=== PATIENT | female | born 1985 | race Caucasian/White ===

== ENCOUNTER → 2018-01-02 22:09 | Outpatient (CLI) | payer MEDICAID, SELFPAY ==
[2018-01-08 11:27] LABS: HPV APTIMA, High Risk Negative (Negative)
== END ==
PROVIDERS: Visit Provider Nurse Practitioner Women's Health
DX: Z12.4 Encounter for screening for malignant neoplasm of cervix (principal)
CPT/HCPCS: 88175; G0145

== ENCOUNTER → 2019-02-27 | Outpatient (CLI) | payer MEDICAID, SELFPAY ==
[2019-02-26 14:28] VITALS: BMI 30.1
[2019-02-27 13:20] LABS: Absolute Lymphocyte Count 1.81 X10^3/uL (0.83-4.51); Absolute Neutrophil Count 6.1 X10^3/uL (2.0-7.7); Basophil# 0.02 X10^3/uL; Basophil% 0.2 % (0-1); Eosinophil# 0.19 X10^3/uL; Eosinophils% 2.2 % (0-5); Hematocrit 46.9 % (37-47); Hemoglobin 15.6 g/dL (12.0-15.0); Lymphocyte # 1.81 X10^3/ul (4.0); Lymphocyte % 20.6 % (19-41); Mean Corp Hgb Conc 33.3 g/dL (32-36); Mean Corpuscular Hgb 32.4 pg (27.0-32.0); Mean Corpuscular Volume 97.3 fL (81-99); Mean Platelet Vol. 10.9 fl (6.2-12.0); Monocyte# 0.61 X10^3/uL; Monocyte% 6.9 % (0-10); NRBC Flagged by Analyzer 0 % (0-5); Neutrophil # 6.12 X10^3/uL (2.7-7.7); Neutrophil % 69.8 % (47-70); Platelet Count 299 K/mm3 (150-450); RBC Distribution Width CV 11.1 % (11.6-14.6); Red Blood Count 4.82 M/mm3 (4.2-5.4); White Blood Count 8.8 K/mm3 (4.4-11.0)
[2019-02-27 14:09] LABS: AST(SGOT) 15 U/L (15-37); Alanine Aminotransfer ALT/SGPT 24 U/L (13-56); Albumin, Serum 3.7 g/dL (3.2-5.0); Alkaline Phosphatase 63 U/L (45-117); Anion Gap 9 (5-15); BUN 8 mg/dL (7-18); BUN/Creat Ratio 13.3 RATIO (10-20); Calcium,Total 8.9 mg/dL (8.5-10.1); Chloride 105 mmol/L (98-107); Cholesterol 215 mg/dL (200); EST Glomerular Filtration Rate 121 mL/min (>60); Est Glom Filt Rate - Afr Amer 146 mL/min (>60); Globulin 3.8 g/dL (2.2-4.2); Glucose 88 mg/dL (74-106); High Density Lipoprotein 35 mg/dL; Potassium 4.2 mmol/L (3.5-5.1); Protein, Total 7.5 g/dL (6.4-8.2); Sodium Level 140 mmol/L (136-145); Triglycerides 421 mg/dL
== END | disposition home or self-care (01) ==
LOC: BIMLAB 08:05
PROVIDERS: Family Provider Internal Medicine; PCP Internal Medicine; Visit Provider Internal Medicine
DX: I10 Essential (primary) hypertension (principal); G43.909 Migraine, unspecified, not intractable, without status migrainosus
CPT/HCPCS: 36415; 80053; 80061; 85025

== ENCOUNTER → 2019-03-20 | Outpatient (CLI) | payer MEDICAID, SELFPAY ==
[2019-02-26 14:28] VITALS: BMI 30.1
--- NOTE | 2019-03-20 13:12 | CT_ITS ---
STUDY: CT BRAIN WITH AND WITHOUT CONTRAST REASON FOR EXAM: Female, 33 years old. Temporal headaches. Hypertension. RADIATION DOSAGE (If Supplied By Facility): CTDIvol = ( 44.99 ) mGy, DLP = ( 1479.73 ) mGycm TECHNIQUE: Transaxial CT imaging of the brain was performed pre and post contrast administration. The examination was performed with intravenous administration of IV Isovue 300 50mL. Individualized dose optimization techniques were used for this CT. COMPARISON: None. FINDINGS: Normal soft tissue structures. Normal calvarium. Normal size ventricles and extra-axial spaces for the patient's age. Normal white matter tracts of the cerebral hemispheres. Normal basal ganglia and thalami. Normal brainstem. Normal cerebellum. There is no intracranial hemorrhage. There are no findings of an acute ischemic infarction. Mild degree of bilateral ethmoid sinusitis. CT/Brain/Head W/WO Contrast IMPRESSION: Mild degree of bilateral ethmoid sinusitis. Electronically Signed: Deric Fleming, at 15:44 EDT , Service support ,
== END | disposition home or self-care (01) ==
LOC: CT 13:10
PROVIDERS: Family Provider Internal Medicine; PCP Internal Medicine; Referring Provider Internal Medicine; Visit Provider Internal Medicine
DX: G43.909 Migraine, unspecified, not intractable, without status migrainosus (principal); J32.9 Chronic sinusitis, unspecified
CPT/HCPCS: 70470; Q9967

== ENCOUNTER → 2019-03-28 | Outpatient (CLI) | payer MEDICAID, SELFPAY ==
[2019-03-27 17:06] VITALS: BMI 27.8
[2019-03-28 12:30] LABS: Anion Gap 6 (5-15); BUN 9 mg/dL (7-18); Calcium,Total 9.3 mg/dL (8.5-10.1); Chloride 104 mmol/L (98-107); EST Glomerular Filtration Rate 121 mL/min (>60); Est Glom Filt Rate - Afr Amer 147 mL/min (>60); Glucose 95 mg/dL (74-106); Potassium 3.6 mmol/L (3.5-5.1); Sodium Level 137 mmol/L (136-145)
== END | disposition home or self-care (01) ==
LOC: BIMLAB 10:59
PROVIDERS: Family Provider Internal Medicine; PCP Internal Medicine; Visit Provider Internal Medicine
DX: I10 Essential (primary) hypertension (principal)
CPT/HCPCS: 36415; 80048

== ENCOUNTER 2019-06-19 03:48 | Emergency (ER) | payer MEDICAID, SELFPAY ==
[2019-03-27 17:06] VITALS: BMI 27.8
[2019-06-19 03:49] VITALS: BP 144/106; PULSE 91; RESP 20; TEMP 36.9; O2SAT 97; BMI 27.3
[2019-06-19] MEDS: Acetaminophen 325 MG Tablet 650 MG PO (04:14)
[2019-06-19] MEDS: Ibuprofen 600 MG Tablet PO (04:15)
[2019-06-19] MEDS: cycloBENZAPRine HCl 10 MG Tablet PO (04:15)
[2019-06-19] MEDS: morphine 8 MG/ML Syringe 6 MG IM (04:15)
[2019-06-19 05:03] LABS: Mucous, Urine 0 SEEN /hpf (<or=2+); Red Blood Cells-Urine 0 SEEN /hpf (0-5)
[2019-06-19 05:11] LABS: Internal QC Validated? YES +Cl - CLEAR BKGD; Pregnancy, Urine Negative Negative
[2019-06-19 05:13] LABS: Color, Urine Yellow (Yellow); Glucose, Dipstick Normal (Normal); Ketone-Dipstick Negative (Negative); Leukocyte Esterase-Dipstick 100 /ul (Negative); Nitrite-Dipstick Negative (Negative); Occult Blood-Urine Negative /ul (Negative); Protein-Dipstick Negative (Negative); Specific Gravity, Urine 1.025 (1.002-1.030); Urine Bilirubin Dipstick Negative (Negative); Urine Clarity Sl. Cloudy (Clear); Urine Urobilinogen Normal (Normal)
[2019-06-19 05:29] LABS: Bacteria 1+ /hpf (None Seen); Squamous Epithelial Cells - UA 0-5 SEEN /hpf (5-10); White Blood Cells 5-10 SEEN /hpf (0-5)
--- NOTE | 2019-06-19 05:41 | ED.VIS.BACK ---
History of Present Illness Chief Complaint: Back Informant: Patient Onset: Days - 7 Context: Gradual Onset Injury: Lifting, Twisting Quality: Sharp Location: Lumbar Worsened by: improves with: Movement Relieved by: Remaining Still Associated Symptoms: Radiation to Right Leg Narrative: Patient is a 33-year-old female with history of hypertension presenting with lower back pain. Patient states she was lifting a case of water bottles a week ago when she felt a tingle in her low back. Since then she is had worsening low back pain. She seen her chiropractor 3 times with no relief. She is all been alternating ibuprofen and Tylenol for her pain as well as using Biofreeze and ice. Patient states the pain is now worse in her right lower back and radiates to her groin, hip and down her leg. She has some associated nausea secondary to the pain but no vomiting and normal bowel movements. She denies any abdominal pain. She denies any falls or injury. She notes she had a similar episode a couple months ago but it resolved after couple days. 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 She tried to work yesterday but was only able to work for 4 hours before the pain became too bad. She denies any other complaint such as fever, incontinence or numbness. Past Medical History - Allergies and Home Meds Allergies/Adverse Reactions: Allergies amoxicillin [From Augmentin] Allergy (Unknown, Verified 06/19/19 03:51) Vaginal Itching clavulanic acid [From Augmentin] Allergy (Unknown, Verified 06/19/19 03:51) Vaginal Itching Primary Care Physician: Joseph Bustamante MD [Primary Care Provider] - Past Medical History: - - Hypertension Surgical History: noncontributory Smoking Status: Former smoker Review of Systems General: Denies: Chills, Fever, Sweats Eyes: Denies: Visual changes - bilaterally, Diplopia ENT: Denies: Rhinorrhea, Sore throat Cardiovascular: Denies: Chest pain, Palpitations Respiratory: Denies: Dyspnea, Cough, Dyspnea on exertion Gastrointestinal: Denies: Abdominal pain, Nausea, Vomiting, Diarrhea, Melena, Hematochezia Genitourinary: Denies: Dysuria, Hematuria, Frequency Musculoskeletal: Reports: Back pain - Right lower. Denies: Extremity Pain Skin: Denies: Rash, Wounds Neurological: Denies: Headache, Weakness, Numbness Physical Exam Vital Signs/Narrative: Vital Signs Temp Pulse Resp BP Pulse Ox 06/19/19 03:49 98.4 F 91 20 H 144/106 H 97 Inital Vital Signs reviewed: Yes General: Well nourished, Well developed Head: Normocephalic, Atraumatic Eyes: Perrl, EOMI ENT: Moist mucous membranes, No rhinorrhea Neck: Supple, Nontender Cardiovascular: Regular rate, Regular rhythm, No murmurs Respiratory: No distress, CTA bilaterally, Chest nontender Abdomen: Soft, Nontender, Nondistended, Normal bowel sounds, - - No pain at McBurney's point. Negative for: No masses, Guarding, Rebound tenderness Back: Normal Inspection, Paraspinal Tenderness - Right paraspinal, Positive SLR - Right, Positive SLR - Left. Negative for: Spinal tenderness, CVA tenderness Extremeties: Nontender, No edema Skin: Normal color, No rash Neuro: Alert, Oriented, Normal Strength, Normal Sensation, Normal DTR, Normal Gait. Negative for: Weakness, Parasthesia Psychological: Normal affect Diagnostic/Tx/Re-eval - Medical Decision Making Patient is evaluated for back pain. Is been present for the past week. It started after she lifted a case of water. Patient does not have midline tenderness. I am not concerned for cauda equina syndrome. She is a normal neurologic exam. She is treated with IM morphine for pain control as well as oral Motrin, Tylenol and Flexeril. Patient does have improvement of her symptoms. Urinalysis is checked because it is at her right flank to rule out pyelonephritis or kidney stone. Urinalysis is likely contaminated but does have some white blood cells 1+ bacteria. Urine culture is sent. She is not started on antibiotics. Patient will follow-up with her primary care doctor. She is counseled on symptomatic treatment and the typical course of back pain with sciatica. Patient is counseled on signs and symptoms requiring return to the emergency room. Patient verbalizes agreement and understand this plan. Patient discharged home in stable and improved condition. ED Disposition - Plan for ED Patient: Disposition: Home or Assisted Living Diagnosis: Low back pain with sciatica Instructions: BACK PAIN w/ SCIATICA Prescriptions: cycloBENZAPRine HCl [Flexeril] 10 mg PO TID PRN PRN #20 tab PRN Reason: Muscle Spasm Prescription Printed Ibuprofen [Motrin] 600 mg PO Q6H PRN PRN #20 tab PRN Reason: Pain/Inflammation Prescription Printed Referrals: Joseph Bustamante MD [Primary Care Provider] - Additional Instructions: Please make sure you follow-up with your primary doctor later today as already scheduled. Likely this is sciatica causing your pain. This can be caused by bulging disc in your back or muscle spasms. Will be started on a muscle relaxer to help with the pain as well as anti-inflammatories. Return emergency room with any worsening symptoms such as worsening pain, fever or incontinence.
[2019-06-19 05:51] VITALS: BP 135/99; PULSE 89; RESP 18; O2SAT 96
== END 2019-06-19 05:52 | disposition home or self-care (01) ==
PROVIDERS: Emergency Provider Emergency Medicine; PCP Internal Medicine
DX: M54.41 Lumbago with sciatica, right side (principal); I10 Essential (primary) hypertension; Z87.891 Personal history of nicotine dependence; Z79.899 Other long term (current) drug therapy
CPT/HCPCS: 81001; 81025; 87086; 87088; 96372; 99283

== ENCOUNTER 2019-11-13 10:00 | Outpatient (RCR) | payer MEDICAID, SELFPAY ==
[2019-07-10 15:18] VITALS: BMI 27.3
--- NOTE | 2019-07-17 11:41 | HP.PTEVAL ---
Patient's Visit Information ANA LILIA DELONG is a 33 year old F referred to Physical Therapy by BETTIE Rouse with a diagnosis of LBP. Date of Evaluation: 07/17/19 Physical Therapist: Yuri Plata, DPT, OCS, CSCS - Visit Plan Frequency: 2x /Week Duration: 4-6 Weeks Plan: 2x/week for 4 weeks for... 1. Randal ext progression of forces. 2. remodelling LB stretches wehn appropr. 3. DLS adn core strength/body mechanics. 4. ES and MH as needed. - Subjective Findings: Has LBP and sciatica R LE. had it for a month after lifting 40 pack of water. [place] it in R LB and now goes down back of r LE. Been doing ice adn some stretches and pain patches for the last month with meds. It helps and the edge is now off. Doing home knee to chest stretches and DKC and they stretch but not great. Morning is the worst time.Hard to move in morning due to stiffness. 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 Was off 3 weeks and just returned adn it is rough. Basic ADLS are getting done. Hobbies : 3 kids 15,12,5. Lying on couch with legs elevated is painfree position. - Pain R B Pain Intensity (Out of 10): 3 Pain Intensity Range: 0, 6 Comment: afterr work is worse. - Objective Walks normal and I, trasnfers hesitant but I chair and table. Posture is flat back, Fowrard head posture adn kyphosis posturally in T/S. No tenderness in low back or posterior musculature. Reflexes 2/3 patella and achilles B. Sensation wNL in LE to gross light touch. Strength LE 4+/5 without myotomal abnormalities. Felxibility is fair. AROM L/S is max limtied in LS with R pinch, min limited R SB with pinch, L SB is good painfree. Flexion is hesitant but not painful. - slump, + R SLR. Repeated PPU seems to centralize pain and increase ext ROM. - Goals Goal 1:: Full L/S AROM without pain. Goal Time Frame: 4-6 Weeks Goal 2:: Pt feel pain 90% better at 1/10 at worst adn manageable Goal Time Frame: 4-6 Weeks Goal 3:: <10% disability on oswestry Goal Time Frame: 4-6 Weeks Goal 4:: I approp HEP and body mechanics to minimize future problems. Goal Time Frame: 4-6 Weeks - Rehabilitation Potential Physical Therapy Diagnosis: LBP likely discal in nature. Rehabilitation Potential: Fair - Anticipated Interventions Patient/Client Instruction: Educate patient on: Condition, Plan of Care For the Purpose of:: To decrease pain, To increase ROM, To improve muscle performance and motor function, To increase tolerance to activity/condition/position, To improve ability of physical actions for home/community/work/leisure Therapeutic Exercise to Include: Strength training, Postural training, Neuromotor development, Passive ROM, Active ROM, Dynamic Lumbar Stabilization, Randal Exercises For the Purpose of:: To decrease pain, To improve muscle performance and motor function, To increase tolerance to activity/condition/position, To improve ability of physical actions for home/community/work/leisure, To improve gait and locomotor functions Manual Therapy Techniques to Include: Mobilization For the Purpose of:: To increase ROM TENS: Yes Thermo therapy (hot pack): Yes For the Purpose of:: To decrease pain Thank you for the opportunity to evaluate your patient. For Medicare and Medicare HMO plans, please review the plan of care and approve it. It will need to be FAXED BACK to us at [phone] for Medicare purposes. For Medicare only, by signing this I certify the plan of care. Please let me know if there are questions or concerns regarding this plan of care. Physician Signature: Date:
--- NOTE | 2019-11-13 10:18 | HP.PTDCSUM ---
It has been my pleasure to treat ANA LILIA DELONG referred by Austin Sr NP-C, with the diagnosis of LBP for a total of 11 visit(s). Discharge Date: 11/13/19 Please see the following information for a summary of their discharge status. Subjective: Been exercising for past two weeks. Pinch is not nearly as bad. It happens with working 11 hour days and lifting. Feels like they are working. To doctor in two weeks. R B Pain Intensity (Out of 10): 0 % Improvement: 95 Objective/Function: Full aROM without pain today, no pain in 4 days. Ready to be done and on her own. Goal 1:: Full L/S AROM without pain. Goal Progress: Goal Met Goal 2:: Pt feel pain 90% better at 1/10 at worst adn manageable Goal Progress: Goal Met Goal 3:: <10% disability on oswestry Goal Progress: 10% Goal 4:: I approp HEP and body mechanics to minimize future problems. Goal Progress: Goal Met Plan: d/c If there are questions or concerns regarding this patient's physical therapy, please feel free to call me at [phone]. Thank you for the referral of this patient. Sincerely, Yuri Plata, DPT, OCS, CSCS
== END 2019-11-13 13:07 | disposition home or self-care (01) ==
LOC: PT 10:00
PROVIDERS: PCP Internal Medicine; Referring Provider Nurse Practitioner Family; Visit Provider Nurse Practitioner Family
DX: M54.41 Lumbago with sciatica, right side (principal)
CPT/HCPCS: 97014; 97110; 97161; 97164; G0283

== ENCOUNTER → 2020-05-20 08:38 | Outpatient (CLI) | payer MEDICAID, SELFPAY ==
[2020-05-20 08:10] VITALS: BMI 30.2
[2020-05-20 12:51] LABS: Absolute Lymphocyte Count 1.69 X10^3/uL (0.83-4.51); Absolute Neutrophil Count 4.3 X10^3/uL (2.0-7.7); Basophil# 0.04 X10^3/uL; Basophil% 0.6 % (0-1); Eosinophil# 0.19 X10^3/uL; Eosinophils% 2.8 % (0-5); Hematocrit 44.6 % (37-47); Hemoglobin 14.6 g/dL (12.0-15.0); Lymphocyte # 1.69 X10^3/ul (4.0); Lymphocyte % 24.8 % (19-41); Mean Corp Hgb Conc 32.7 g/dL (32-36); Mean Corpuscular Hgb 30.5 pg (27.0-32.0); Mean Corpuscular Volume 93.1 fL (81-99); Monocyte# 0.58 X10^3/uL; Monocyte% 8.5 % (0-10); NRBC Flagged by Analyzer 0 % (0-5); Neutrophil % 63.2 % (47-70); Platelet Count 348 K/mm3 (150-450); RBC Distribution Width CV 11.3 % (11.6-14.6); RBC Distribution Width SD 38.4 fl (35.1-43.9); Red Blood Count 4.79 M/mm3 (4.2-5.4); White Blood Count 6.8 K/mm3 (4.4-11.0)
[2020-05-20 13:12] LABS: Vitamin D,25 Hydroxy 28.4 ng/mL
[2020-05-20 13:34] LABS: ALB/GLOB Ratio 0.9 RATIO (0.9-2.4); AST(SGOT) 14 U/L (15-37); Alanine Aminotransfer ALT/SGPT 23 U/L (13-56); Albumin, Serum 3.6 g/dL (3.2-5.0); Alkaline Phosphatase 51 U/L (45-117); Anion Gap 6 (5-15); BUN 11 mg/dL (7-18); BUN/Creat Ratio 18.9 RATIO (10-20); Calcium,Total 8.9 mg/dL (8.5-10.1); Chloride 106 mmol/L (98-107); Cholesterol 218 mg/dL (200); Creatinine, Serum 0.58 mg/dL (0.55-1.02); EST Glomerular Filtration Rate 125 mL/min (>60); Est Glom Filt Rate - Afr Amer 151 mL/min (>60); Globulin 3.8 g/dL (2.2-4.2); Glucose 92 mg/dL (74-106); High Density Lipoprotein 39 mg/dL; Potassium 3.9 mmol/L (3.5-5.1); Protein, Total 7.4 g/dL (6.4-8.2); Sodium Level 140 mmol/L (136-145); Thyroid Stim Hormone (TSH) 0.74 uIU/mL (0.358-3.74); Triglycerides 299 mg/dL; Very Low Density Lipoprotein 60 mg/dL (5-40)
== END ==
PROVIDERS: PCP Internal Medicine; Referring Provider Nurse Practitioner Family; Visit Provider Nurse Practitioner Family
DX: E55.9 Vitamin D deficiency, unspecified (principal); G43.909 Migraine, unspecified, not intractable, without status migrainosus; G89.29 Other chronic pain; I10 Essential (primary) hypertension; M54.5 Low back pain
CPT/HCPCS: 36415; 80053; 80061; 82306; 84443; 85025

== ENCOUNTER → 2020-05-21 11:59 | Outpatient (CLI) | payer MEDICAID, SELFPAY ==
[2020-05-20 08:10] VITALS: BMI 30.2
--- NOTE | 2020-05-21 12:05 | RAD_ITS ---
STUDY: X-RAY - LUMBAR SPINE REASON FOR EXAM: Female, 34 years old. LOW BACK PAIN X1 YEAR WITH RADICULOPATHY. S/P CARRYING A CASE OF WATER. TECHNIQUE: 3 view(s) of the lumbar spine were obtained. COMPARISON: None FINDINGS: Normal lumbar lordosis. There is no substantial scoliosis. There is a normal alignment of the vertebrae. Moderate degree of disc space narrowing and spondylosis at the L5-S1 level. Limbus vertebrae of the superior anterior endplate of the L5 vertebrae. The soft tissue structures are unremarkable. RAD/Lumbar Spine 2 or 3 Views IMPRESSION: Degenerative changes of the spine, as detailed above. Electronically Signed: Deric Fleming, at 12:40 EST , Service support ,
== END ==
PROVIDERS: PCP Internal Medicine; Visit Provider Nurse Practitioner Family
DX: M54.41 Lumbago with sciatica, right side (principal); G89.29 Other chronic pain
CPT/HCPCS: 72100

== ENCOUNTER → 2020-06-08 07:12 | Outpatient (CLI) | payer MEDICAID, SELFPAY ==
[2020-05-20 08:10] VITALS: BMI 30.2
--- NOTE | 2020-06-08 07:12 | MRI_ITS ---
STUDY: MRI LUMBAR SPINE WITHOUT CONTRAST REASON FOR EXAM: Female, 34 years old. low back pain after lifting heavy object radiates into legs bilaterally and R toes. TECHNIQUE: Standardized fat and water weighted pulse sequences were obtained in the sagittal and axial planes. COMPARISON: None FINDINGS: T12-L1: Normal endplates. Normal disc height, hydration and morphology. Normal bilateral facet joints. Normal central canal and bilateral lateral recesses. Normal bilateral intervertebral neural foramina. Normal lumbar lordosis. There is no substantial scoliosis. Normal conus medullaris that terminates at the L1 L1-2: Normal endplates. Normal disc height, hydration and morphology. Normal bilateral facet joints. Normal central canal and bilateral lateral recesses. Normal bilateral intervertebral neural foramina. L2-3: Normal endplates. Normal disc height, hydration and morphology. Normal bilateral facet joints. Normal central canal and bilateral lateral recesses. Normal bilateral intervertebral neural foramina. L3-4: Normal endplates. Normal disc height, hydration and morphology. Normal bilateral facet joints. Normal central canal and bilateral lateral recesses. Normal bilateral intervertebral neural foramina. L4-5: Normal endplates. Normal disc height, hydration and morphology. Normal bilateral facet joints. Normal central canal and bilateral lateral recesses. Normal bilateral intervertebral neural foramina. L5-S1: Moderate sized left paracentral, preforaminal, and foraminal disc protrusion produces mild spinal stenosis, mild right lateral recess stenosis, severe left lateral recess stenosis with effacement of the left S1 nerve root, mild right neural foraminal stenosis and moderate left neural foraminal stenosis with abutment of the left L5 nerve root laterally. Normal visualized sacral ala. Normal visualized paraspinous soft tissue structures. MRI/Spine Lumbar (Routine) IMPRESSION: Focal degenerative disc disease asymmetric to the left at L5/S1 as described above. Electronically Signed: Justin Eldridge MD at 8:30 EST Tel , Service support ,
== END ==
PROVIDERS: PCP Internal Medicine; Referring Provider Nurse Practitioner Family; Visit Provider Nurse Practitioner Family
DX: M54.16 Radiculopathy, lumbar region (principal); M54.41 Lumbago with sciatica, right side
CPT/HCPCS: 72148

== ENCOUNTER → 2020-06-29 11:31 | Outpatient (CLI) | payer MEDICAID, SELFPAY ==
[2020-06-17 14:24] VITALS: BMI 30.2
--- NOTE | 2020-06-29 11:35 | RAD_ITS ---
STUDY: X-RAY - CERVICAL SPINE REASON FOR EXAM: Female, 34 years old. NECK PAIN TECHNIQUE: 2 view(s) of the cervical spine were obtained. COMPARISON: None FINDINGS: Normal anterior atlantoaxial articulation. Normal odontoid process. There is straightening of the normal cervical lordosis. Normal vertebral bodies and endplates. Normal disc space heights. Normal visualized intervertebral neuroforamina. The soft tissue structures are unremarkable. RAD/Cerv Spine 2 or 3 Views IMPRESSION: Straightening of the normal cervical lordosis. Electronically Signed: Deric Fleming MD at 11:59 EST , Service support ,
== END ==
PROVIDERS: PCP Internal Medicine; Referring Provider Anesthesiology Pain Medicine; Visit Provider Anesthesiology Pain Medicine
DX: M54.2 Cervicalgia (principal)
CPT/HCPCS: 72040

== ENCOUNTER → 2020-08-17 10:06 | Outpatient (CLI) | payer MEDICAID, SELFPAY ==
[2020-06-17 14:24] VITALS: BMI 30.2
[2020-08-17 12:04] LABS: Erythrocyte Sedimentation Rate 4 mm/hr (0-30)
[2020-08-17 12:35] LABS: Cholesterol 215 mg/dL (200); High Density Lipoprotein 50 mg/dL; Rheumatoid Factor < 10.0 IU/mL (<15); Triglycerides 243 mg/dL; Very Low Density Lipoprotein 49 mg/dL (5-40)
[2020-08-19 12:25] LABS: CCP IgG Antibodies 12 units (0-19)
== END ==
PROVIDERS: PCP Internal Medicine; Referring Provider Internal Medicine; Visit Provider Internal Medicine
DX: M19.90 Unspecified osteoarthritis, unspecified site (principal); E78.5 Hyperlipidemia, unspecified
CPT/HCPCS: 36415; 80061; 85652; 86140; 86200; 86431

== ENCOUNTER → 2020-11-16 10:32 | Outpatient (CLI) | payer MEDICAID, SELFPAY ==
[2020-11-16 10:06] VITALS: BMI 30.2
[2020-11-16 12:52] LABS: Anion Gap 8 (5-15); BUN 11 mg/dL (7-18); BUN/Creat Ratio 18.8 RATIO (10-20); Calcium,Total 9.6 mg/dL (8.5-10.1); Chloride 104 mmol/L (98-107); Creatinine, Serum 0.58 mg/dL (0.55-1.02); EST Glomerular Filtration Rate 124 mL/min (>60); Est Glom Filt Rate - Afr Amer 150 mL/min (>60); Glucose 89 mg/dL (74-106); Sodium Level 138 mmol/L (136-145)
== END ==
PROVIDERS: PCP Internal Medicine; Visit Provider Internal Medicine
DX: I10 Essential (primary) hypertension (principal)
CPT/HCPCS: 36415; 80048

== ENCOUNTER → 2020-12-04 12:50 | Outpatient (CLI) | payer MEDICAID, SELFPAY ==
[2020-11-16 10:06] VITALS: BMI 30.2
--- NOTE | 2020-12-04 12:53 | US_ITS ---
STUDY: ULTRASOUND OF THE FEMALE PELVIS - COMPLETE REASON FOR EXAM: Female, 35 years old. Irregular menses LMP: 11/07/2020. TECHNIQUE: Transabdominal and Transvaginal TECHNICAL QUALITY: Adequate. COMPARISON: None. FINDINGS: The uterus is retroverted and is in a midline position. The uterus measures 7.1 cm x 4.6 cm x 3.5 cm. Normal uterine cervix. The endometrium measures 3 mm in thickness, and is hyperechoic. There is no demonstrated endometrial mass. The myometrium is of heterogeneous echotexture suggestive of fibroid change although no focal fibroid is seen. I.U.D. - The patient does not have an I.U.D. The right ovary is visualized. The right ovary measures 2.7 cm x 1.4 cm x 1.4 cm. There is no right ovarian cyst or ovarian mass. There is no visualized right adnexal mass or complex lesion. There is normal arterial and normal venous vascularity. The left ovary is visualized. The left ovary measures 2.8 cm x 1.9 cm x 1.8 cm. There is no left ovarian cyst or ovarian mass. There is no visualized left adnexal mass or complex lesion. There is normal arterial and normal venous vascularity. There is no fluid in the cul-de-sac. The pre void volume of the bladder was 525 ml. US/Transvaginal Non- IMPRESSION: Heterogeneous appearance of the myometrium suggestive of fibroid change although no focal fibroid is seen. Electronically Signed: Deric Fleming MD at 14:29 EDT , Service support ,
--- NOTE | 2020-12-04 12:53 | US_ITS ---
STUDY: ULTRASOUND OF THE FEMALE PELVIS - COMPLETE REASON FOR EXAM: Female, 35 years old. Irregular menses LMP: 11/07/2020. TECHNIQUE: Transabdominal and Transvaginal TECHNICAL QUALITY: Adequate. COMPARISON: None. FINDINGS: The uterus is retroverted and is in a midline position. The uterus measures 7.1 cm x 4.6 cm x 3.5 cm. Normal uterine cervix. The endometrium measures 3 mm in thickness, and is hyperechoic. There is no demonstrated endometrial mass. The myometrium is of heterogeneous echotexture suggestive of fibroid change although no focal fibroid is seen. I.U.D. - The patient does not have an I.U.D. The right ovary is visualized. The right ovary measures 2.7 cm x 1.4 cm x 1.4 cm. There is no right ovarian cyst or ovarian mass. There is no visualized right adnexal mass or complex lesion. There is normal arterial and normal venous vascularity. The left ovary is visualized. The left ovary measures 2.8 cm x 1.9 cm x 1.8 cm. There is no left ovarian cyst or ovarian mass. There is no visualized left adnexal mass or complex lesion. There is normal arterial and normal venous vascularity. There is no fluid in the cul-de-sac. The pre void volume of the bladder was 525 ml. US/Pelvic (Non ) IMPRESSION: Heterogeneous appearance of the myometrium suggestive of fibroid change although no focal fibroid is seen. Electronically Signed: Deric Fleming MD at 14:29 EDT , Service support ,
== END ==
PROVIDERS: PCP Internal Medicine; Referring Provider Nurse Practitioner Women's Health; Visit Provider Nurse Practitioner Women's Health
DX: N92.6 Irregular menstruation, unspecified (principal)
CPT/HCPCS: 76830; 76856

== ENCOUNTER → 2021-04-29 | Outpatient (CLI) | payer MEDICAID, SELFPAY ==
[2021-04-30 21:07] LABS: Chlamydia By Nucleic Acid AMP Negative (Negative)
[2021-04-30 21:47] LABS: Gonococcus By Nucleic Acid AMP Negative (Negative)
== END | disposition home or self-care (01) ==
LOC: LABSPEC 12:19
PROVIDERS: PCP Internal Medicine; Visit Provider Nurse Practitioner Women's Health
DX: Z11.3 Encounter for screening for infections with a predominantly sexual mode of transmission (principal)
CPT/HCPCS: 87491; 87591

== ENCOUNTER → 2021-05-17 10:07 | Outpatient (CLI) | payer MEDICAID, SELFPAY ==
[2021-05-17 12:22] LABS: Absolute Neutrophil Count 4.8 X10^3/uL (2.0-7.7); Basophil# 0.04 X10^3/uL; Basophil% 0.5 % (0-1); Eosinophil# 0.23 X10^3/uL; Eosinophils% 3.1 % (0-5); Hematocrit 44.5 % (37-47); Hemoglobin 14.8 g/dL (12.0-15.0); Lymphocyte % 25.5 % (19-41); Mean Corp Hgb Conc 33.3 g/dL (32-36); Mean Corpuscular Volume 93.3 fL (81-99); Mean Platelet Vol. 10.8 fl (6.2-12.0); Monocyte% 6.7 % (0-10); NRBC Flagged by Analyzer 0 % (0-5); Neutrophil # 4.76 X10^3/uL (2.7-7.7); Neutrophil % 63.9 % (47-70); Platelet Count 361 K/mm3 (150-450); RBC Distribution Width CV 11.4 % (11.6-14.6); Red Blood Count 4.77 M/mm3 (4.2-5.4); White Blood Count 7.5 K/mm3 (4.4-11.0)
[2021-05-17 12:37] LABS: Anion Gap 8 (5-15); BUN 8 mg/dL (7-18); BUN/Creat Ratio 12.5 RATIO (10-20); Calcium,Total 9.8 mg/dL (8.5-10.1); Chloride 105 mmol/L (98-107); Creatinine, Serum 0.64 mg/dL (0.55-1.02); EST Glomerular Filtration Rate 112 mL/min (>60); Est Glom Filt Rate - Afr Amer 135 mL/min (>60); Glucose 91 mg/dL (74-106); Sodium Level 141 mmol/L (136-145)
== END ==
PROVIDERS: PCP Internal Medicine; Visit Provider Internal Medicine
DX: I10 Essential (primary) hypertension (principal)
CPT/HCPCS: 36415; 80048; 85025

== ENCOUNTER 2021-10-24 20:18 | Emergency (ER) | payer MEDICAID, SELFPAY ==
[2021-10-24 20:19] VITALS: BP 143/106; PULSE 91; RESP 18; TEMP 36.2; O2SAT 98; BMI 27.7
--- NOTE | 2021-10-24 21:03 | EDS_ITS ---
HPI HPI - GI History of Present Illness Chief Complaint: Abd Pain Narrative Narrative: 35-year-old female with epigastric pain. This started this morning. She did not wake up with it. She states that after eating eggs and gluten-free toast she started to have some nausea and epigastric pain. She describes it as sharp. She states that it feels like at times it might be exploding. Patient has had diarrhea today. Yesterday she had hamburgers, macaroni salad, eggs, but states that everybody else had this and they did not get sick. No urinary complaints. No fever or chills. PFSH [facility] Medical History Bilateral foot pain Chronic back pain Hyperlipidemia Hypertension Migraines Home Medications hydrocortisone 2.5 % topical cream 1 applic TOPICAL BID PRN #30 g 11/27/19 [Rx Last Taken Unknown] propranolol 60 mg capsule,24 hr,extended release 60 mg PO Q24H #90 cap 03/17/21 [Rx Last Taken Unknown] hydrochlorothiazide 12.5 mg tablet 12.5 mg PO DAILY #90 tab 03/26/21 [Rx Last Taken Unknown] fenofibrate 120 mg tablet 120 mg PO DAILY #90 tab 04/08/21 [Rx Last Taken Unkno wn] norgestimate 0.25 mg-ethinyl estradiol 35 mcg tablet 1 tab PO .COMPLEX #84 tab 04/28/21 [Rx Last Taken Unknown] cholecalciferol (vitamin D3) 50 mcg (2,000 unit) capsule 50 mcg PO DAILY 04/29/21 [History Last Taken Unknown] ipratropium bromide 42 mcg (0.06 %) nasal spray 2 spray INTRANASAL TID-QID PRN #15 ml 10/06/21 [Rx Last Taken Unknown] ondansetron 4 mg PO Q8H PRN #10 tab 10/24/21 [Rx Last Taken Unknown] sucralfate [Carafate] 10 ml PO BID PRN #200 ml 10/24/21 [Rx Last Taken Unknown] Allergy/AdvReac Type Severity Reaction Status Date / Time amoxicillin [From Augmentin] Allergy Mild Vaginal Verified 10/24/21 20:19 Itching clavulanic acid Allergy Mild Vaginal Verified 10/24/21 20:19 [From Augmentin] Itching Family History Mother Heart disease Hypertension Grandfather Heart disease Grandmother Diabetes CVA (cerebral vascular accident) Father Hypertension Surgical History History of 3 sections Social History household members: children housing: house number of children: 3 current occupational status: employed current occupation: [employer] Smoking Status: Former smoker alcohol intake: never what type of physical activity do you participate in: none and walking frequency: daily seatbelt use: always do you feel safe at home: Yes ROS ROS ED Constitutional Constitutional ED: Denies chills, fever(s) or sweats Eyes Eyes: Denies blurry vision or change in vision ENT ENT ED: Denies ear pain or sore throat Cardiovascular Cardiovascular: Denies chest pain, palpitations or racing heartbeat Respiratory/Chest Respiratory/Chest: Denies cough, dyspnea or sputum Gastrointestinal Gastrointestinal: Reports abdominal pain, diarrhea and nausea; Denies constipation Genitourinary Genitourinary ED: Denies dysuria, hematuria or urinary frequency Musculoskeletal Musculoskeletal: Denies arthralgias, myalgias or neck pain Integumentary Denies abscess, Abrasions or rash Neurologic Neurologic: Denies headache(s), paresthesias or weakness Psychiatric Psychiatric: Denies anxiety, depression, suicidal ideation or suicidal thoughts Endocrine Endocrinology: Denies polydipsia or polyuria EXAM Physical Exam Const Vital Signs: 10/24/21 20:19 10/24/21 22:19 Temperature 97.1 F L Temperature Source Temporal Pulse Rate 91 64 Respiratory Rate 18 16 Blood Pressure 143/106 H 128/78 H Blood Pressure Mean 118 94 Pulse Ox 98 98 Oxygen Delivery Method Room Air Room Air Positive well nourished General Appearance ED: NAD; Negative for pallor HEENT normocephalic and atraumatic Eyes PERRL and EOMs intact bilaterally General Eye ED: Negative for pale conjunctiva or scleral icterus Resp normal respiratory effort and clear to auscultation bilaterally GI non-distended Palpation: soft and tender epigastric Back/Spine no CVA tenderness Neuro Sensorium / Orientation: alert, oriented to person, oriented to place and oriented to time Psych mental status grossly normal Skin General Skin Exam: Negative for jaundice or pallor Lesions: no lesions Rashes: no rashes MDM MDM MDM Narrative Medical decision making narrative: Patient presenting with epigastric pain. Patient's abdominal exam is benign. CBC shows slight leukocytosis at 12.0. Hemoglobin medic are stable. Renal function electrolytes ago. LFTs and lipase are normal. Urine hCG negative. Urinalysis not consistent with infection and she is not having any urinary symptoms. Patient was initially treated with morphine and Zofran and had a good improvement in her pain. Patient treated with a GI cocktail and her symptoms improved. She will be sent home with Carafate and Zofran. Patient will follow-up with her primary care provider to ensure resolution. Impression: 1. Epigastric pain 2. Gastritis Lab Data Attestation: I reviewed the patient's lab results. Labs: Laboratory Results - last 24 hr 10/24/21 10/24/21 10/24/21 21:10 21:10 21:10 WBC 12.0 H RBC 4.48 Hgb 14.1 Hct 40.9 MCV 91.3 MCH 31.5 MCHC 34.5 RDW Std Deviation 37.6 RDW Coeff of Lyle 11.2 L Plt Count 291 MPV 10.2 Immature Gran % (Auto) 0.300 Neut % (Auto) 76.6 H Lymph % (Auto) 13.0 L [place] % (Auto) 8.6 Eos % (Auto) 1.3 Baso % (Auto) 0.2 Absolute Neuts (auto) 9.2 H Absolute Lymphs (auto) 1.56 Nucleated RBC % 0 Sodium 139 Potassium 3.6 Chloride 105 Carbon Dioxide 28.0 Anion Gap 6 BUN 13 Creatinine 0.65 Estim Creat Clear Calc 112.01 Est GFR (MDRD) Af Amer 132 Est GFR (MDRD) Non-Af 109 BUN/Creatinine Ratio 20.0 Glucose 100 Calcium 10.0 Total Bilirubin 0.40 AST 16 ALT 17 Alkaline Phosphatase 45 Total Protein 6.9 Albumin 3.4 Globulin 3.5 Albumin/Globulin Ratio 1.0 Lipase 84 Serum , Qual NEGATIVE Urine Color Urine Clarity Urine pH Ur Specific [place] Urine Protein Urine Glucose (UA) Urine Ketones Urine Occult Blood Urine Nitrite Urine Bilirubin Urine Urobilinogen Ur Leukocyte Esterase Urine RBC Urine WBC Ur Squamous Epith Cells Urine Bacteria Urine Mucus 10/24/21 21:50 WBC RBC Hgb Hct MCV MCH MCHC RDW Std Deviation RDW Coeff of Lyle Plt Count MPV Immature Gran % (Auto) Neut % (Auto) Lymph % (Auto) [place] % (Auto) Eos % (Auto) Baso % (Auto) Absolute Neuts (auto) Absolute Lymphs (auto) Nucleated RBC % Sodium Potassium Chloride Carbon Dioxide Anion Gap BUN Creatinine Estim Creat Clear Calc Est GFR (MDRD) Af Amer Est GFR (MDRD) Non-Af BUN/Creatinine Ratio Glucose Calcium Total Bilirubin AST ALT Alkaline Phosphatase Total Protein Albumin Globulin Albumin/Globulin Ratio Lipase Serum , Qual Urine Color Yellow Urine Clarity Clear Urine pH 8.0 Ur Specific [place] 1.015 Urine Protein Negative Urine Glucose (UA) Normal Urine Ketones Negative Urine Occult Blood Negative Urine Nitrite Negative Urine Bilirubin Negative Urine Urobilinogen Normal Ur Leukocyte Esterase 100 H Urine RBC 0 SEEN Urine WBC 0-5 SEEN Ur Squamous Epith Cells 0-5 SEEN Urine Bacteria 3+ Urine Mucus 0 SEEN Discharge Plan Triage Chief Complaint: Abd Pain ED Provider: Christophe Anthony Dx/Rx/DC Orders Instructions: ED Gastritis (Adult) Prescriptions: New ondansetron 4 mg tablet,disintegrating 4 mg PO Q8H PRN (Reason: nausea and vomiting) Qty: 10 RF: 0 sucralfate [Carafate] 100 mg/mL suspension 10 ml PO BID PRN (Reason: epigastric pain) Qty: 200 RF: 0 No Action hydrocortisone 2.5 % cream 1 applic TOPICAL BID PRN (Reason: rash) Qty: 30 RF: 1 cholecalciferol (vitamin D3) 50 mcg (2,000 unit) capsule 50 mcg PO DAILY RF: 0 propranolol 60 mg capsule,extended release 24 hr 60 mg PO Q24H Qty: 90 RF: 3 hydrochlorothiazide 12.5 mg tablet 12.5 mg PO DAILY Qty: 90 RF: 2 fenofibrate 120 mg tablet 120 mg PO DAILY Qty: 90 RF: 3 norgestimate-ethinyl estradiol [Sprintec (28)] 0.25-35 mg-mcg tablet 1 tab PO .COMPLEX Qty: 84 RF: 5 ipratropium bromide 42 mcg (0.06 %) spray,non-aerosol 2 spray intranasal TID-QID PRN (Reason: allergy symptoms) Qty: 15 RF: 2 Primary Care Provider: Joseph Bustamante Referrals: Joseph Bustamante MD [Primary Care Provider] - Disposition Disposition: Home, Self Care
[2021-10-24 21:18] LABS: Absolute Lymphocyte Count 1.56 X10^3/uL (0.83-4.51); Absolute Neutrophil Count 9.2 X10^3/uL (2.0-7.7); Basophil# 0.03 X10^3/uL; Basophil% 0.2 % (0-1); Eosinophil# 0.16 X10^3/uL; Eosinophils% 1.3 % (0-5); Hematocrit 40.9 % (37-47); Hemoglobin 14.1 g/dL (12.0-15.0); Lymphocyte # 1.56 X10^3/ul (0.83-4.51); Mean Corp Hgb Conc 34.5 g/dL (32-36); Mean Corpuscular Hgb 31.5 pg (27.0-32.0); Mean Corpuscular Volume 91.3 fL (81-99); Mean Platelet Vol. 10.2 fl (6.2-12.0); Monocyte# 1.04 X10^3/uL; Monocyte% 8.6 % (0-10); NRBC Flagged by Analyzer 0 % (0-5); Neutrophil % 76.6 % (47-70); Platelet Count 291 K/mm3 (150-450); RBC Distribution Width CV 11.2 % (11.6-14.6); RBC Distribution Width SD 37.6 fl (35.1-43.9); Red Blood Count 4.48 M/mm3 (4.2-5.4)
[2021-10-24] MEDS: Ondansetron 4 MG/2 ML Vial IV (21:19)
[2021-10-24] MEDS: Morphine 4 MG/ML Syringe IV (21:20)
[2021-10-24] MEDS: 0.9% Normal Saline 1,000 ML 1000 ML IV (21:22)
[2021-10-24 21:31] LABS: Internal QC Validated? YES +Cl - CLEAR BKGD; Pregnancy, Serum, hCG Quali. NEGATIVE Negative
[2021-10-24 21:38] LABS: AST(SGOT) 16 U/L (15-37); Alanine Aminotransfer ALT/SGPT 17 U/L (13-56); Albumin, Serum 3.4 g/dL (3.2-5.0); Alkaline Phosphatase 45 U/L (45-117); Anion Gap 6 (5-15); BUN 13 mg/dL (7-18); Chloride 105 mmol/L (98-107); Creatinine, Serum 0.65 mg/dL (0.55-1.02); EST Glomerular Filtration Rate 109 mL/min (>60); Est Glom Filt Rate - Afr Amer 132 mL/min (>60); Estimated Creatinine Clearance 112.01 ml/min; Globulin 3.5 g/dL (2.2-4.2); Glucose 100 mg/dL (74-106); Lipase 84 U/L (73-393); Potassium 3.6 mmol/L (3.5-5.1); Protein, Total 6.9 g/dL (6.4-8.2); Sodium Level 139 mmol/L (136-145)
[2021-10-24 21:58] LABS: Mucous, Urine 0 SEEN /hpf (<or=2+); Red Blood Cells-Urine 0 SEEN /hpf (0-5)
[2021-10-24 22:05] LABS: Color, Urine Yellow (Yellow); Glucose, Dipstick Normal (Normal); Ketone-Dipstick Negative (Negative); Leukocyte Esterase-Dipstick 100 /ul (Negative); Nitrite-Dipstick Negative (Negative); Occult Blood-Urine Negative /ul (Negative); Protein-Dipstick Negative (Negative); Specific Gravity, Urine 1.015 (1.002-1.030); Urine Bilirubin Dipstick Negative (Negative); Urine Clarity Clear (Clear); Urine Urobilinogen Normal (Normal)
[2021-10-24 22:19] VITALS: BP 128/78; PULSE 64; RESP 16; O2SAT 98
[2021-10-24 22:21] LABS: Bacteria 3+ /hpf (None Seen); Squamous Epithelial Cells - UA 0-5 SEEN /hpf (5-10); White Blood Cells 0-5 SEEN /hpf (0-5)
[2021-10-24] MEDS: Mag Hydrox/Al Hydrox/Simeth 30 ML UDC PO (22:47)
[2021-10-24 23:03] VITALS: BP 126/78; PULSE 78; RESP 14; TEMP 36.9; O2SAT 98
== END 2021-10-24 23:15 | disposition home or self-care (01) ==
PROVIDERS: Emergency Provider Student in an Organized Health Care Education/Training Program; PCP Internal Medicine; Visit Provider Student in an Organized Health Care Education/Training Program
DX: K29.70 Gastritis, unspecified, without bleeding (principal); I10 Essential (primary) hypertension; E78.5 Hyperlipidemia, unspecified; Z79.899 Other long term (current) drug therapy; Z87.891 Personal history of nicotine dependence
CPT/HCPCS: 80053; 81001; 83690; 84703; 85025; 96361; 96374; 96375; 99284; J7030; A4216; J2405

== ENCOUNTER → 2021-10-29 | Outpatient (CLI) | payer MEDICAID, SELFPAY ==
[2021-10-29 15:56] LABS: Absolute Lymphocyte Count 2.43 X10^3/uL (0.83-4.51); Basophil# 0.04 X10^3/uL; Basophil% 0.5 % (0-1); Eosinophil# 0.19 X10^3/uL; Eosinophils% 2.3 % (0-5); Hematocrit 40.4 % (37-47); Hemoglobin 13.9 g/dL (12.0-15.0); Lymphocyte # 2.43 X10^3/ul (0.83-4.51); Lymphocyte % 29.7 % (19-41); Mean Corp Hgb Conc 34.4 g/dL (32-36); Mean Corpuscular Hgb 31.3 pg (27.0-32.0); Mean Platelet Vol. 10.9 fl (6.2-12.0); Monocyte% 6.1 % (0-10); NRBC Flagged by Analyzer 0 % (0-5); Neutrophil % 61.3 % (47-70); Platelet Count 335 K/mm3 (150-450); RBC Distribution Width CV 11.2 % (11.6-14.6); RBC Distribution Width SD 37.4 fl (35.1-43.9); Red Blood Count 4.44 M/mm3 (4.2-5.4); White Blood Count 8.2 K/mm3 (4.4-11.0)
[2021-10-29 16:05] LABS: ALB/GLOB Ratio 0.9 RATIO (0.9-2.4); AST(SGOT) 19 U/L (15-37); Alanine Aminotransfer ALT/SGPT 34 U/L (13-56); Albumin, Serum 3.6 g/dL (3.2-5.0); Alkaline Phosphatase 47 U/L (45-117); Amylase 47 U/L (25-115); Anion Gap 8 (5-15); BUN 12 mg/dL (7-18); BUN/Creat Ratio 16.3 RATIO (10-20); Calcium,Total 9.9 mg/dL (8.5-10.1); Chloride 101 mmol/L (98-107); Creatinine, Serum 0.73 mg/dL (0.55-1.02); EST Glomerular Filtration Rate 95 mL/min (>60); Est Glom Filt Rate - Afr Amer 115 mL/min (>60); Globulin 3.8 g/dL (2.2-4.2); Glucose 137 mg/dL (74-106); Lipase 129 U/L (73-393); Potassium 3.4 mmol/L (3.5-5.1); Protein, Total 7.4 g/dL (6.4-8.2); Sodium Level 136 mmol/L (136-145)
== END | disposition home or self-care (01) ==
LOC: BIMLAB 13:50
PROVIDERS: PCP Internal Medicine; Referring Provider Internal Medicine; Visit Provider Internal Medicine
DX: R10.9 Unspecified abdominal pain (principal)
CPT/HCPCS: 36415; 80053; 82150; 83690; 85025

== ENCOUNTER → 2021-11-11 | Outpatient (CLI) | payer MEDICAID, SELFPAY ==
--- NOTE | 2021-11-11 08:16 | EKG12_ITS ---
Test Reason : CHEST PAIN Blood Pressure : / mmHG Vent. Rate : 082 BPM Atrial Rate : 082 BPM P-R Int : 146 ms QRS Dur : 092 ms QT Int : 378 ms P-R-T Axes : 030 033 044 degrees QTc Int : 441 ms Normal sinus rhythm Normal ECG Confirmed by OK BUNDY, ROBI ([id number]), purchasing expeditor NATHANIEL RED ([id number]) on 11/12/2021 9:15:32 AM Referred By: Joseph Bustamante Confirmed By:ROBI EUCEDA MD
== END | disposition home or self-care (01) ==
LOC: PSN 08:14
PROVIDERS: PCP Internal Medicine; Referring Provider Internal Medicine; Visit Provider Internal Medicine
DX: R07.9 Chest pain, unspecified (principal); Z82.49 Family history of ischemic heart disease and other diseases of the circulatory system
CPT/HCPCS: 93005

== ENCOUNTER → 2021-11-30 | Outpatient (CLI) | payer MEDICAID, SELFPAY | END | disposition home or self-care (01) | LOC: PSN 13:25 | PROVIDERS: PCP Internal Medicine; Referring Provider Internal Medicine; Visit Provider Internal Medicine | DX: R00.2 Palpitations (principal) | CPT/HCPCS: 93225; 93226 ==

== ENCOUNTER → 2022-02-11 | Outpatient (CLI) | payer MEDICAID, SELFPAY ==
--- NOTE | 2022-02-11 12:25 | ECHOCS_ITS ---
Reason For Study: ARRHYTHMIA Procedure This was a 2D Doppler, Color Flow transthoracic echocardiogram. The study was technically difficult. Contrast injection was performed. Exam performed in department. Left Ventricle Normal LV size. Left ventricular systolic function is normal. The estimated ejection fraction is 65 %. No evidence for diastolic dysfunction. No regional wall motion abnormalities noted. Right Ventricle Normal RV size. Normal systolic function. Atria Normal left atrium. Normal right atrium. No doppler evidence for ASD. Mitral Valve There is no mitral annular calcification. Normal mitral valve. Trivial mitral valve insufficiency. Tricuspid Valve Normal tricuspid valve. Trivial tricuspid valve insufficiency. Right ventricular systolic pressure estimated to be 28 mmHg. Aortic Valve Based upon the 2D echocardiographic images obtained there appears to be findings compatible with a bicuspid aortic valve with mild focal thickening and calcification. Pulmonic Valve The pulmonic valve is not well visualized. Trivial pulmonic valve insufficiency. Great Vessels Borderline to mildly dilated aortic root. Pericardium/Pleural No pericardial effusion. Medication 22 gauge I.V. with prn adaptor inserted into right arm. Diluted definity 2ml given slow IV push to enhance endocardial definition. MMode/2D Measurements & Calculations LVIDd: 4.7 cm IVSd: 0.77 cm Ao root diam: 3.5 cm LVIDs: 3.1 cm LVPWd: 0.82 cm RVDd: 3.0 cm FS: 33.8 % LAV(MOD-bp): 32.6 ml LVAd ap4: 28.5 cm2 SV(MOD-sp4): 52.2 ml LAV(MOD-bp) Indexed: 17.2 ml/m2 LVLd ap4: 7.8 cm LAV(MOD-sp2): 34.1 ml EDV(MOD-sp4): 85.0 ml LAV(MOD-sp4): 30.8 ml EDV(sp4-el): 88.3 ml LVAs ap4: 15.6 cm2 LVLs ap4: 6.2 cm ESV(MOD-sp4): 32.8 ml ESV(sp4-el): 33.4 ml EF(MOD-sp4): 61.4 % EF(sp4-el): 62.1 % SV(sp4-el): 54.9 ml LA A4 area: 13.9 cm2 LA dimension(2D): 3.2 cm RA A4 area: 12.8 cm2 Time Measurements MV dec time: 0.20 sec Doppler Measurements & Calculations MV E max marko: 85.1 cm/sec Lat Peak E' Marko: 18.4 cm/sec Med Peak E' Marko: 9.5 cm/sec MV A max marko: 82.7 cm/sec E/E' lat: 4.6 E/E' med: 9.0 MV E/A: 1.0 Ao V2 max: 167.6 cm/sec AI max marko: 423.0 cm/sec LV V1 max: 102.0 cm/sec Ao max P.2 mmHg AI max P.6 mmHg LV V1 max P.2 mmHg AI dec slope: 239.8 cm/sec2 AI P1/2t: 516.8 msec PA V2 max: 86.3 cm/sec TR max marko: 250.8 cm/sec TR max P.2 mmHg ECHO/Echo Complete W/ Contrast Interpretation Summary The study was technically difficult. Contrast injection was performed. Left ventricular systolic function is normal. The estimated ejection fraction is 65 %. Trivial mitral valve insufficiency. Trivial tricuspid valve insufficiency. Based upon the 2D echocardiographic images obtained there appears to be finding s compatible with a bicuspid aortic valve with mild focal thickening and calcification. Trivial pulmonic valve insufficiency. Borderline to mildly dilated aortic root. Right ventricular systolic pressure estimated to be 28 mmHg. No evidence for diastolic dysfunction. Ordering Physician: Ronald Carbone Referring Physician: MAVIS MACIEL Performed By: Keturah Almeida RDCS
--- NOTE | 2022-02-11 12:25 | STEWCON_ITS ---
Reason For Study: Chest Pain; Palpitations Stress Results Protocol: Claus Protocol WITH DEFINITY Maximum Predicted HR: 183 bpm Target HR: 156 bpm % Maximum Predicted HR: 98 % DurationHeart Rate Stage (mm:ss) (bpm) BP Comment Baseline 81 112/70No Chest Pain; 3 ML Diluted Definity Given Claus Protocol Stage I 3:00 108 132/70No Chest Pain Claus Protocol Stage II 3:00 139 144/74No Chest Pain Claus Protocol Stage III 3:00 155 150/68No Chest Pain Claus Protocol Stage IV 0:45 179 / No Chest Pain Recovery 114 118/80No Chest Pain Stress Duration: 9:45 mm:ss Maximum Stress HR: 179 bpm METS: 12 Baseline Echocardiogram Findings Stress Echo Wall motion Data Resting WM Intermediate WM Stress WM Resting Wall Motion Wall Motion Stress All segments Normal. All segments Hyperkinetic. Ejection Fraction 55 %. Ejection Fraction 70 %. Stress Results Heart rate response: Technically adequate: Percent predicted maximal heart rate greater than 85% Blood pressure response: Normal resting blood pressure-appropriate response Cardiac rhythm: Rare isolated PVC during exercise Functional capacity: Good Stopped secondary to: Dyspnea. EKG Data Baseline ECG: Normal sinus rhythm. Peak exercise ECG: No obvious ECG changes. Symptoms with Stress No complaint of chest discomfort during exercise or recovery. ECHO/Stress Test Echo W/Contrast Interpretation Summary Contrast injection performed Negative (adequate) stress echocardiogram Ordering Physician: Ronald Carbone Referring Physician: Ronald Carbone Performed By: Keturah Almeida RDCS
[2022-02-11 16:02] LABS: AST(SGOT) 18 U/L (15-37); Alanine Aminotransfer ALT/SGPT 20 U/L (13-56); Albumin, Serum 3.6 g/dL (3.2-5.0); Alkaline Phosphatase 46 U/L (45-117); Anion Gap 10 (5-15); BUN 10 mg/dL (7-18); BUN/Creat Ratio 13.6 RATIO (10-20); Bilirubin, Direct 0.06 mg/dL (0.00-0.30); Calcium,Total 9.3 mg/dL (8.5-10.1); Chloride 101 mmol/L (98-107); Cholesterol 196 mg/dL (200); Creatinine, Serum 0.73 mg/dL (0.55-1.02); EST Glomerular Filtration Rate 95 mL/min (>60); Est Glom Filt Rate - Afr Amer 115 mL/min (>60); Globulin 3.9 g/dL (2.2-4.2); Glucose 86 mg/dL (74-106); High Density Lipoprotein 44 mg/dL; Magnesium 1.9 mg/dL (1.6-2.6); Potassium 3.4 mmol/L (3.5-5.1); Protein, Total 7.5 g/dL (6.4-8.2); Sodium Level 137 mmol/L (136-145); Thyroid Stim Hormone (TSH) 0.59 uIU/mL (0.358-3.74); Triglycerides 181 mg/dL; Very Low Density Lipoprotein 36 mg/dL (5-40)
== END | disposition home or self-care (01) ==
PROVIDERS: PCP Internal Medicine; Referring Provider Internal Medicine Cardiovascular Disease; Visit Provider Internal Medicine Cardiovascular Disease
DX: I49.8 Other specified cardiac arrhythmias (principal); I10 Essential (primary) hypertension; E78.1 Pure hyperglyceridemia; R07.9 Chest pain, unspecified; R00.2 Palpitations
CPT/HCPCS: 93306; 93350; 36415; 80048; 80061; 80076; 83735; 84443; 93017; Q9957; A4216; C8928; C8929

== ENCOUNTER → 2022-02-18 | Outpatient (CLI) | payer MEDICAID, SELFPAY ==
[2022-02-18 16:35] LABS: Anion Gap 7 (5-15); BUN 11 mg/dL (7-18); BUN/Creat Ratio 19.4 RATIO (10-20); Calcium,Total 9.2 mg/dL (8.5-10.1); Chloride 103 mmol/L (98-107); Creatinine, Serum 0.57 mg/dL (0.55-1.02); EST Glomerular Filtration Rate 128 mL/min (>60); Est Glom Filt Rate - Afr Amer 155 mL/min (>60); Glucose 104 mg/dL (74-106); Potassium 3.7 mmol/L (3.5-5.1); Sodium Level 139 mmol/L (136-145)
== END | disposition home or self-care (01) ==
LOC: LAB 14:00
PROVIDERS: PCP Internal Medicine; Referring Provider Internal Medicine Cardiovascular Disease; Visit Provider Internal Medicine Cardiovascular Disease
DX: E87.6 Hypokalemia (principal)
CPT/HCPCS: 36415; 80048

== ENCOUNTER → 2022-02-25 | Outpatient (CLI) | payer MEDICAID, SELFPAY ==
[2022-02-25 16:41] LABS: Anion Gap 7 (5-15); BUN 11 mg/dL (7-18); Calcium,Total 9.1 mg/dL (8.5-10.1); Chloride 103 mmol/L (98-107); Creatinine, Serum 0.61 mg/dL (0.55-1.02); EST Glomerular Filtration Rate 117 mL/min (>60); Est Glom Filt Rate - Afr Amer 141 mL/min (>60); Glucose 132 mg/dL (74-106); Potassium 3.2 mmol/L (3.5-5.1); Sodium Level 139 mmol/L (136-145)
== END | disposition home or self-care (01) ==
LOC: LAB 13:49
PROVIDERS: PCP Internal Medicine; Referring Provider Nurse Practitioner Gerontology; Visit Provider Nurse Practitioner Gerontology
DX: R00.2 Palpitations (principal)
CPT/HCPCS: 36415; 80048

== ENCOUNTER → 2022-02-28 | Outpatient (CLI) | payer MEDICAID, SELFPAY ==
--- NOTE | 2022-02-28 16:55 | RAD_ITS ---
STUDY: X-RAY - THORACIC SPINE REASON FOR EXAM: Female, 36 years old. PAIN TECHNIQUE: 3 view(s) of the thoracic spine were obtained. COMPARISON: None. FINDINGS: Normal kyphosis of the thoracic spine. There is no substantial scoliosis. Normal thoracic vertebrae and endplates. Normal disc space heights. The soft tissue structures are unremarkable. RAD/Thoracic Spine 3 Views IMPRESSION: Normal x-ray examination of the thoracic spine. If pain persists CT or MRI recommended for further evaluation Electronically Signed: Rogerio Rodriguez MD at 23:00 EDT ,
== END | disposition home or self-care (01) ==
LOC: RAD 16:50
PROVIDERS: PCP Internal Medicine; Referring Provider Anesthesiology Pain Medicine; Visit Provider Anesthesiology Pain Medicine
DX: M51.34 Other intervertebral disc degeneration, thoracic region (principal)
CPT/HCPCS: 72072

== ENCOUNTER → 2022-04-04 | Outpatient (CLI) | payer MEDICAID, SELFPAY ==
[2022-04-04 12:25] LABS: Anion Gap 5 (5-15); BUN 10 mg/dL (7-18); BUN/Creat Ratio 16.8 RATIO (10-20); Calcium,Total 9.5 mg/dL (8.5-10.1); Chloride 104 mmol/L (98-107); EST Glomerular Filtration Rate 121 mL/min (>60); Est Glom Filt Rate - Afr Amer 146 mL/min (>60); Glucose 131 mg/dL (74-106); Potassium 3.8 mmol/L (3.5-5.1); Sodium Level 137 mmol/L (136-145)
== END | disposition home or self-care (01) ==
LOC: BIMLAB 08:47
PROVIDERS: PCP Internal Medicine; Referring Provider Internal Medicine; Visit Provider Internal Medicine
DX: I10 Essential (primary) hypertension (principal); E87.6 Hypokalemia
CPT/HCPCS: 36415; 80048

== ENCOUNTER → 2022-06-27 | Outpatient (CLI) | payer MEDICAID, SELFPAY ==
[2022-07-02 14:47] LABS: HPV APTIMA, High Risk Negative (Negative)
== END | disposition home or self-care (01) ==
LOC: LABSPEC 16:31
PROVIDERS: PCP Internal Medicine; Referring Provider Nurse Practitioner Women's Health; Visit Provider Nurse Practitioner Women's Health
DX: Z12.4 Encounter for screening for malignant neoplasm of cervix (principal)
CPT/HCPCS: 87624; 88175; G0145

== ENCOUNTER → 2022-08-01 | Outpatient (CLI) | payer MEDICAID, SELFPAY ==
[2022-08-01 16:28] LABS: NATERA MAILED SPECIMEN
== END | disposition home or self-care (01) ==
PROVIDERS: PCP Internal Medicine; Referring Provider Internal Medicine; Visit Provider Internal Medicine
DX: Z80.3 Family history of malignant neoplasm of breast (principal)

== ENCOUNTER → 2022-08-29 | Outpatient (CLI) | payer MEDICAID, SELFPAY ==
[2022-08-29 16:25] LABS: Anion Gap 5 (5-15); BUN 12 mg/dL (7-18); BUN/Creat Ratio 18.2 RATIO (10-20); Calcium,Total 9.5 mg/dL (8.5-10.1); Chloride 106 mmol/L (98-107); Creatinine, Serum 0.66 mg/dL (0.55-1.02); EST Glomerular Filtration Rate 107 mL/min (>60); Est Glom Filt Rate - Afr Amer 129 mL/min (>60); Glucose 97 mg/dL (74-106); Potassium 3.9 mmol/L (3.5-5.1); Sodium Level 139 mmol/L (136-145)
== END | disposition home or self-care (01) ==
LOC: BIMLAB 12:22
PROVIDERS: PCP Internal Medicine; Referring Provider Internal Medicine; Visit Provider Internal Medicine
DX: I10 Essential (primary) hypertension (principal)
CPT/HCPCS: 36415; 80048

== ENCOUNTER → 2022-09-16 | Outpatient (CLI) | payer MEDICAID, SELFPAY ==
--- NOTE | 2022-09-16 15:52 | US_ITS ---
EXAM: US PELVIS TRANSABDOMINAL AND TRANSVAGINAL, COMPLETE CLINICAL INDICATION: brca 2 gene mutation positive TECHNIQUE: Transabdominal and endovaginal pelvic ultrasound was performed with grayscale and color Doppler imaging. Endovaginal imaging was used for better evaluation of the endometrium and adnexa. This report was created using [employer] report [employer] technology. COMPARISON: None. FINDINGS: UTERUS/CERVIX: Uterus measures 8.4 x 4.4 x 3.8 cm and is retroflexed. Endometrial thickness of 4 mm. Echogenic foci along the endometrium without acoustic shadowing or ring down artifact may represent blood products. RIGHT OVARY: Right ovary measures 2.0 x 1.2 x 1.3 cm. Blood flow is present in the right ovary. LEFT OVARY: Left ovary measures 2.3 x 1.4 x 1.5 cm. Blood flow is present in the left ovary. FREE FLUID: None. US/Transvaginal Non- IMPRESSION: No evidence of pelvic mass. As above. Electronically Signed: Helder Puentes MD at 16:52 EDT ,
--- NOTE | 2022-09-16 15:52 | US_ITS ---
EXAM: US PELVIS TRANSABDOMINAL AND TRANSVAGINAL, COMPLETE CLINICAL INDICATION: brca 2 gene mutation positive TECHNIQUE: Transabdominal and endovaginal pelvic ultrasound was performed with grayscale and color Doppler imaging. Endovaginal imaging was used for better evaluation of the endometrium and adnexa. This report was created using [employer] report [employer] technology. COMPARISON: None. FINDINGS: UTERUS/CERVIX: Uterus measures 8.4 x 4.4 x 3.8 cm and is retroflexed. Endometrial thickness of 4 mm. Echogenic foci along the endometrium without acoustic shadowing or ring down artifact may represent blood products. RIGHT OVARY: Right ovary measures 2.0 x 1.2 x 1.3 cm. Blood flow is present in the right ovary. LEFT OVARY: Left ovary measures 2.3 x 1.4 x 1.5 cm. Blood flow is present in the left ovary. FREE FLUID: None. US/Pelvic (Non ) IMPRESSION: No evidence of pelvic mass. As above. Electronically Signed: Helder Puentes MD at 16:52 EDT ,
== END | disposition home or self-care (01) ==
LOC: US 15:51
PROVIDERS: PCP Internal Medicine; Referring Provider Obstetrics & Gynecology; Visit Provider Obstetrics & Gynecology
DX: Z15.01 Genetic susceptibility to malignant neoplasm of breast (principal); Z15.09 Genetic susceptibility to other malignant neoplasm
CPT/HCPCS: 76830; 76856

== ENCOUNTER → 2022-09-23 | Outpatient (CLI) | payer MEDICAID, SELFPAY ==
--- NOTE | 2022-09-23 12:09 | BI_ITS ---
MAMMOGRAPHY - BILATERAL SCREENING REASON FOR EXAM: Female, 36 years old. Routine annual screening examination. PERTINENT HISTORY: Mother with breast cancer. TECHNIQUE: Digital bilateral breast janelle (3D mammographic acquisition) in the CC and MLO projections. 2-D mediolateral oblique (MLO) and craniocaudad (CC) views of both breasts were obtained. CAD: Full Field Digital Mammography with Computer Added Detection was performed. COMPARISON: None. Baseline examination. FINDINGS: Breast Composition: There are scattered areas of fibroglandular density. There are no dominant masses or suspicious calcifications. Benign-appearing bilateral axillary lymph nodes. There is a 4.2 mm x 9.5 mm well-defined nodule in the axillary region of the right breast suggestive of a small lymph node. No other significant abnormalities are identified. BI/SCRN MAMM (CAD)W/JANELLE BILAT IMPRESSION: Negative screening mammogram. Yearly followup mammogram recommended. (A) ASSESSMENT CATEGORY: Approximately 10% of breast cancers are not detected by mammography. A normal mammogram should not delay biopsy of a clinically suspicious abnormality. [id number] Electronically Signed: Deric Fleming MD at 13:23 EDT ,
== END | disposition home or self-care (01) ==
LOC: OPBI 12:09
PROVIDERS: PCP Internal Medicine; Referring Provider Obstetrics & Gynecology; Visit Provider Obstetrics & Gynecology
DX: Z12.31 Encounter for screening mammogram for malignant neoplasm of breast (principal); Z15.01 Genetic susceptibility to malignant neoplasm of breast; Z15.09 Genetic susceptibility to other malignant neoplasm; Z80.3 Family history of malignant neoplasm of breast
CPT/HCPCS: 77063; 77067

== ENCOUNTER → 2022-09-30 | Outpatient (CLI) | payer MEDICAID, SELFPAY ==
--- NOTE | 2022-09-30 12:45 | MRI_ITS ---
STUDY: BILATERAL BREAST MR WITHOUT AND WITH CONTRAST REASON FOR EXAM: Female, 36 years old. BRCA gene 2 mutation. TECHNIQUE: Multi-sequence multi-echo imaging of both breasts was performed with a dedicated breast coil. T1-weighted and T2-weighted images were performed before the administration of contrast. T1-weighted images were also performed after the intravenous administration of 17ml of Clariscan contrast. COMPARISON: Bilateral mammogram dated September 23, 2022. FINDINGS: RIGHT BREAST: Fatty replaced breast tissue with no significant background enhancement. No abnormal enhancing masses or areas of non-mass enhancement in the right breast. LEFT BREAST: Fatty replaced breast tissue with no significant background enhancement. No abnormal enhancing masses or areas of non-mass enhancement in the right breast. No enlarged or abnormal lymph nodes. No abnormality in the visualized regions of the chest or liver. MRI/Breast Bilateral W/O and W IMPRESSION: No abnormality on the bilateral breast MRI study with contrast. Alternating screening mammogram with breast MRI with contrast would be appropriate, given the patient''s history. CATEGORY: BIRADS Category 2: Benign. A letter regarding these results will be sent to the patient by the facility within 30 days. Electronically Signed: Cali Shannon, at 10:49 EDT ,
== END | disposition home or self-care (01) ==
LOC: MRI 12:34
PROVIDERS: PCP Internal Medicine; Referring Provider Obstetrics & Gynecology; Visit Provider Obstetrics & Gynecology
DX: Z15.01 Genetic susceptibility to malignant neoplasm of breast (principal)
CPT/HCPCS: 77049; A9575; A4216; C8908

== ENCOUNTER → 2023-01-06 | Outpatient (CLI) | payer MEDICAID, SELFPAY ==
--- NOTE | 2023-01-06 15:25 | US_ITS ---
EXAM: US PELVIS TRANSABDOMINAL AND TRANSVAGINAL, COMPLETE CLINICAL INDICATION: BRCA2 POSITIVE TECHNIQUE: Transabdominal and endovaginal pelvic ultrasound was performed with grayscale and color Doppler imaging. Endovaginal imaging was used for better evaluation of the endometrium and adnexa. COMPARISON: No relevant prior studies available. FINDINGS: UTERUS/CERVIX: Uterus measures 8.6 cm in length. Endometrial thickness is 4 mm. RIGHT OVARY: Normal. Blood flow is present in the right ovary. The right ovary measures 2.8 x 1.6 x 1.9 cm. LEFT OVARY: Normal. Blood flow is present in the left ovary. The left ovary measures 2.5 x 1.9 x 1.9 cm. FREE FLUID: No adnexal mass or free pelvic fluid. US/Pelvic (Non ) IMPRESSION: No acute findings in the pelvis. Electronically Signed: Helder Puentes MD at 15:58 EDT ,
== END | disposition home or self-care (01) ==
PROVIDERS: PCP Internal Medicine; Referring Provider Obstetrics & Gynecology; Visit Provider Obstetrics & Gynecology
DX: Z15.01 Genetic susceptibility to malignant neoplasm of breast (principal); Z15.09 Genetic susceptibility to other malignant neoplasm
CPT/HCPCS: 76830; 76856

== ENCOUNTER → 2023-04-06 | Outpatient (CLI) | payer MEDICAID, SELFPAY | END | disposition home or self-care (01) | LOC: LABSPEC 16:38 | PROVIDERS: PCP Internal Medicine; Referring Provider Nurse Practitioner Women's Health; Visit Provider Nurse Practitioner Women's Health | DX: N89.8 Other specified noninflammatory disorders of vagina (principal) | CPT/HCPCS: 87255 ==

== ENCOUNTER → 2023-04-17 | Outpatient (CLI) | payer MEDICAID, SELFPAY ==
[2023-04-17 12:53] LABS: Absolute Lymphocyte Count 2.33 X10^3/uL (0.83-4.51); Absolute Neutrophil Count 6.2 X10^3/uL (2.0-7.7); Basophil# 0.04 X10^3/uL; Basophil% 0.4 % (0-1); Eosinophil# 0.17 X10^3/uL; Eosinophils% 1.8 % (0-5); Hematocrit 44.4 % (37-47); Hemoglobin 14.5 g/dL (12.0-15.0); Lymphocyte # 2.33 X10^3/ul (0.83-4.51); Lymphocyte % 24.9 % (19-41); Mean Corp Hgb Conc 32.7 g/dL (32-36); Mean Corpuscular Hgb 30.7 pg (27.0-32.0); Mean Corpuscular Volume 94.1 fL (81-99); Mean Platelet Vol. 10.5 fl (6.2-12.0); Monocyte# 0.58 X10^3/uL; Monocyte% 6.2 % (0-10); NRBC Flagged by Analyzer 0 % (0-5); Neutrophil # 6.17 X10^3/uL (2.7-7.7); Neutrophil % 66.1 % (47-70); Platelet Count 380 K/mm3 (150-450); RBC Distribution Width CV 11.5 % (11.6-14.6); RBC Distribution Width SD 39.1 fl (35.1-43.9); Red Blood Count 4.72 M/mm3 (4.2-5.4); White Blood Count 9.4 K/mm3 (4.4-11.0)
[2023-04-17 13:17] LABS: ALB/GLOB Ratio 0.9 RATIO (0.9-2.4); AST(SGOT) 16 U/L (15-37); Alanine Aminotransfer ALT/SGPT 20 U/L (13-56); Albumin, Serum 3.4 g/dL (3.2-5.0); Alkaline Phosphatase 59 U/L (45-117); Anion Gap 8 (5-15); BUN 11 mg/dL (7-18); BUN/Creat Ratio 17.3 RATIO (10-20); Calcium,Total 8.8 mg/dL (8.5-10.1); Chloride 106 mmol/L (98-107); Cholesterol 206 mg/dL (200); Creatinine, Serum 0.64 mg/dL (0.55-1.02); EST Glomerular Filtration Rate 111 mL/min (>60); Est Glom Filt Rate - Afr Amer 135 mL/min (>60); Globulin 3.8 g/dL (2.2-4.2); Glucose 139 mg/dL (74-106); High Density Lipoprotein 44 mg/dL; Potassium 3.7 mmol/L (3.5-5.1); Protein, Total 7.2 g/dL (6.4-8.2); Sodium Level 138 mmol/L (136-145); Triglycerides 249 mg/dL; Very Low Density Lipoprotein 50 mg/dL (5-40)
[2023-04-18 08:12] LABS: CA 15-3 19.3 U/mL (0.0-25.0); Cancer Antigen 125 24.7 U/mL (0.0-38.1)
[2023-04-18 14:35] LABS: Hemoglobin A1c 5.3 % (3.8-5.6)
== END | disposition home or self-care (01) ==
LOC: BIMLAB 08:03
PROVIDERS: Obstetrics & Gynecology; PCP Internal Medicine; Referring Provider Internal Medicine; Visit Provider Internal Medicine
DX: I10 Essential (primary) hypertension (principal); R73.9 Hyperglycemia, unspecified
CPT/HCPCS: 36415; 80053; 80061; 83036; 85025; 86300; 86304

== ENCOUNTER → 2023-05-01 | Outpatient (CLI) | payer MEDICAID, SELFPAY ==
[2023-05-01 13:18] LABS: Vitamin D,25 Hydroxy 27.4 ng/mL
[2023-05-01 13:21] LABS: Thyroid Stim Hormone (TSH) 0.52 uIU/mL (0.358-3.74)
== END | disposition home or self-care (01) ==
LOC: LAB 11:58
PROVIDERS: PCP Internal Medicine; Referring Provider Nurse Practitioner Gerontology; Visit Provider Nurse Practitioner Gerontology
DX: E55.9 Vitamin D deficiency, unspecified (principal); R53.83 Other fatigue
CPT/HCPCS: 36415; 82306; 84443

== ENCOUNTER → 2023-07-17 | Outpatient (CLI) | payer MEDICAID, SELFPAY ==
--- NOTE | 2023-07-17 08:21 | US_ITS ---
STUDY: ULTRASOUND OF THE FEMALE PELVIS - COMPLETE REASON FOR EXAM: Female, 37 years old. BRCA POSTIVITE LMP: Unknown. History of endometrial ablation. TECHNIQUE: Transabdominal and Transvaginal TECHNICAL QUALITY: Adequate. COMPARISON: Comparison is made with prior study January 06, 2023. FINDINGS: The uterus is anteverted and is in a midline position. The uterus measures 8 cm x 5.3 cm x 4 cm. There is a Nabothian cyst of the cervix. The endometrium measures 6 mm in thickness, and is hyperechoic. There is no demonstrated endometrial mass. There is a 3 mm x 3 mm x 2 mm calcification in the endometrium. There is no demonstrated myometrial mass. I.U.D. - The patient does not have an I.U.D. The right ovary is visualized. The right ovary measures 3.1 cm x 3.1 cm x 2.1 cm. There is no right ovarian cyst or ovarian mass. There is no visualized right adnexal mass or complex lesion. There is normal arterial and normal venous vascularity. The left ovary is visualized. The left ovary measures 2.6 cm x 2.7 cm x 2.1 cm. There is no left ovarian cyst or ovarian mass. There is no visualized left adnexal mass or complex lesion. There is normal arterial and normal venous vascularity. There is no fluid in the cul-de-sac. The pre void volume of the bladder was 418 ml. US/Pelvic (Non ) IMPRESSION: Normal female pelvis. Electronically Signed: Deric Fleming MD at 10:29 EST ,
--- NOTE | 2023-07-17 08:21 | US_ITS ---
STUDY: ULTRASOUND OF THE FEMALE PELVIS - COMPLETE REASON FOR EXAM: Female, 37 years old. BRCA POSTIVITE LMP: Unknown. History of endometrial ablation. TECHNIQUE: Transabdominal and Transvaginal TECHNICAL QUALITY: Adequate. COMPARISON: Comparison is made with prior study January 06, 2023. FINDINGS: The uterus is anteverted and is in a midline position. The uterus measures 8 cm x 5.3 cm x 4 cm. There is a Nabothian cyst of the cervix. The endometrium measures 6 mm in thickness, and is hyperechoic. There is no demonstrated endometrial mass. There is a 3 mm x 3 mm x 2 mm calcification in the endometrium. There is no demonstrated myometrial mass. I.U.D. - The patient does not have an I.U.D. The right ovary is visualized. The right ovary measures 3.1 cm x 3.1 cm x 2.1 cm. There is no right ovarian cyst or ovarian mass. There is no visualized right adnexal mass or complex lesion. There is normal arterial and normal venous vascularity. The left ovary is visualized. The left ovary measures 2.6 cm x 2.7 cm x 2.1 cm. There is no left ovarian cyst or ovarian mass. There is no visualized left adnexal mass or complex lesion. There is normal arterial and normal venous vascularity. There is no fluid in the cul-de-sac. The pre void volume of the bladder was 418 ml. US/Transvaginal Non- IMPRESSION: Normal female pelvis. Electronically Signed: Deric Fleming MD at 10:29 EST ,
== END | disposition home or self-care (01) ==
LOC: US 08:20
PROVIDERS: PCP Internal Medicine; Referring Provider Obstetrics & Gynecology; Visit Provider Obstetrics & Gynecology
DX: Z15.01 Genetic susceptibility to malignant neoplasm of breast (principal)
CPT/HCPCS: 76830; 76856

== ENCOUNTER → 2023-09-25 | Outpatient (CLI) | payer MEDICAID, SELFPAY ==
--- NOTE | 2023-09-25 08:49 | BI_ITS ---
MAMMOGRAPHY - BILATERAL SCREENING REASON FOR EXAM: Female, 37 years old. Routine annual screening examination. PERTINENT HISTORY: Mother with breast cancer. TECHNIQUE: Digital bilateral breast janelle (3D mammographic acquisition) in the CC and MLO projections. 2-D mediolateral oblique (MLO) and craniocaudad (CC) views of both breasts were obtained. CAD: Full Field Digital Mammography with Computer Added Detection was performed. COMPARISON: Comparison is made with prior study September 23, 2022. FINDINGS: Breast Composition: There are scattered areas of fibroglandular density. There are no dominant masses or suspicious calcifications. Stable benign-appearing bilateral axillary lymph nodes. Stable 4.2 mm lymph node in the axillary region of the right breast. No other significant abnormalities are identified. There has been no significant change since the prior study. BI/SCRN MAMM (CAD)W/JANELLE BILAT IMPRESSION: Stable bilateral screening mammogram. Yearly follow-up mammogram recommended. (A) ASSESSMENT CATEGORY: BIRADS Category 2: Benign. A letter regarding these results will be sent to the patient by the facility within 30 days. Approximately 10% of breast cancers are not detected by mammography. A normal mammogram should not delay biopsy of a clinically suspicious abnormality. [id number] Electronically Signed: Deric Fleming MD at 9:58 EDT ,
== END | disposition home or self-care (01) ==
LOC: OPBI 08:49
PROVIDERS: PCP Internal Medicine; Referring Provider Nurse Practitioner Women's Health; Visit Provider Nurse Practitioner Women's Health
DX: Z12.31 Encounter for screening mammogram for malignant neoplasm of breast (principal); Z15.01 Genetic susceptibility to malignant neoplasm of breast; Z15.09 Genetic susceptibility to other malignant neoplasm; Z80.3 Family history of malignant neoplasm of breast
CPT/HCPCS: 77063; 77067

== ENCOUNTER → 2023-12-01 | Outpatient (CLI) | payer MEDICAID, SELFPAY ==
[2023-12-01 12:21] LABS: Anion Gap 9 (5-15); BUN 12 mg/dL (7-18); BUN/Creat Ratio 17.1 RATIO (10-20); Calcium,Total 9.6 mg/dL (8.5-10.1); Chloride 104 mmol/L (98-107); EST Glomerular Filtration Rate 99 mL/min (>60); Est Glom Filt Rate - Afr Amer 120 mL/min (>60); Glucose 170 mg/dL (74-106); Potassium 3.4 mmol/L (3.5-5.1); Sodium Level 137 mmol/L (136-145)
== END | disposition home or self-care (01) ==
LOC: BIMLAB 10:15
PROVIDERS: PCP Internal Medicine; Referring Provider Internal Medicine; Visit Provider Internal Medicine
DX: I10 Essential (primary) hypertension (principal)
CPT/HCPCS: 36415; 80048

== ENCOUNTER → 2024-04-08 | Outpatient (CLI) | payer MEDICAID, SELFPAY ==
[2024-04-08 12:24] LABS: Absolute Lymphocyte Count 1.56 X10^3/uL (0.83-4.51); Absolute Neutrophil Count 4.9 X10^3/uL (2.0-7.7); Basophil# 0.03 X10^3/uL; Basophil% 0.4 % (0-1); Eosinophil# 0.28 X10^3/uL; Eosinophils% 3.8 % (0-5); Hematocrit 42.5 % (37-47); Hemoglobin 13.9 g/dL (12.0-15.0); Lymphocyte # 1.56 X10^3/ul (0.83-4.51); Lymphocyte % 21.3 % (19-41); Mean Corp Hgb Conc 32.7 g/dL (32-36); Mean Corpuscular Hgb 30.2 pg (27.0-32.0); Mean Corpuscular Volume 92.4 fL (81-99); Mean Platelet Vol. 10.7 fl (6.2-12.0); Monocyte# 0.52 X10^3/uL; Monocyte% 7.1 % (0-10); NRBC Flagged by Analyzer 0 % (0-5); Neutrophil # 4.91 X10^3/uL (2.7-7.7); Neutrophil % 67.3 % (47-70); Platelet Count 349 K/mm3 (150-450); RBC Distribution Width CV 11.6 % (11.6-14.6); RBC Distribution Width SD 39.1 fl (35.1-43.9); White Blood Count 7.3 K/mm3 (4.4-11.0)
[2024-04-08 12:51] LABS: ALB/GLOB Ratio 0.8 RATIO (0.9-2.4); AST(SGOT) 18 U/L (15-37); Alanine Aminotransfer ALT/SGPT 20 U/L (13-56); Albumin, Serum 3.3 g/dL (3.2-5.0); Alkaline Phosphatase 39 U/L (45-117); Anion Gap 6 (5-15); BUN 11 mg/dL (7-18); BUN/Creat Ratio 18.5 RATIO (10-20); Calcium,Total 9.5 mg/dL (8.5-10.1); Chloride 105 mmol/L (98-107); Cholesterol 214 mg/dL (200); Creatinine, Serum 0.59 mg/dL (0.55-1.02); EST Glomerular Filtration Rate 120 mL/min (>60); Est Glom Filt Rate - Afr Amer 145 mL/min (>60); Globulin 3.9 g/dL (2.2-4.2); Glucose 99 mg/dL (74-106); High Density Lipoprotein 36 mg/dL; Potassium 3.8 mmol/L (3.5-5.1); Protein, Total 7.2 g/dL (6.4-8.2); Sodium Level 138 mmol/L (136-145); Triglycerides 307 mg/dL; Very Low Density Lipoprotein 61 mg/dL (5-40)
== END | disposition home or self-care (01) ==
LOC: BIMLAB 10:08
PROVIDERS: PCP Internal Medicine; Referring Provider Internal Medicine; Visit Provider Internal Medicine
DX: Z00.00 Encounter for general adult medical examination without abnormal findings (principal)
CPT/HCPCS: 36415; 80053; 80061; 85025

== ENCOUNTER → 2024-05-17 | Outpatient (CLI) | payer MEDICAID, SELFPAY ==
[2024-05-17 12:28] LABS: Hematocrit 42.7 % (37-47); Hemoglobin 14.3 g/dL (12.0-15.0); Mean Corp Hgb Conc 33.5 g/dL (32-36); Mean Corpuscular Hgb 30.6 pg (27.0-32.0); Mean Corpuscular Volume 91.2 fL (81-99); Mean Platelet Vol. 9.9 fl (6.2-12.0); Platelet Count 386 K/mm3 (150-450); RBC Distribution Width CV 11.6 % (11.6-14.6); RBC Distribution Width SD 38.6 fl (35.1-43.9); Red Blood Count 4.68 M/mm3 (4.2-5.4); White Blood Count 8.1 K/mm3 (4.4-11.0)
[2024-05-17 12:54] LABS: Anion Gap 9 (5-15); BUN 12 mg/dL (7-18); BUN/Creat Ratio 16.9 RATIO (10-20); Calcium,Total 9.2 mg/dL (8.5-10.1); Chloride 104 mmol/L (98-107); Creatinine, Serum 0.71 mg/dL (0.55-1.02); EST Glomerular Filtration Rate 97 mL/min (>60); Est Glom Filt Rate - Afr Amer 118 mL/min (>60); Glucose 106 mg/dL (74-106); Potassium 4.1 mmol/L (3.5-5.1); Sodium Level 138 mmol/L (136-145)
== END | disposition home or self-care (01) ==
LOC: LAB 11:52
PROVIDERS: PCP Internal Medicine; Referring Provider Plastic Surgery; Visit Provider Plastic Surgery
DX: Z15.01 Genetic susceptibility to malignant neoplasm of breast (principal); Z80.3 Family history of malignant neoplasm of breast
CPT/HCPCS: 36415; 80048; 85027

== ENCOUNTER → 2024-05-20 | Outpatient (CLI) | payer MEDICAID, SELFPAY ==
--- NOTE | 2024-05-20 11:11 | MRI_ITS ---
STUDY: BILATERAL BREAST MR WITHOUT AND WITH CONTRAST REASON FOR EXAM: Female, 38 years old. BRCA+ and mother with breast cancer. Alternating screening mammogram with screening breast MRI with contrast for surveillance. TECHNIQUE: Multi-sequence multi-echo imaging of both breasts was performed with a dedicated breast coil. T1-weighted and T2-weighted images were performed before the administration of contrast. T1-weighted images were also performed after the intravenous administration of 17 cc of Clariscan contrast. COMPARISON: Screening mammograms dated September 23, 2022 and September 25, 2023. Prior breast MRI without and with contrast dated September 30, 2022. FINDINGS: RIGHT BREAST: Fatty replaced breast tissue with no background enhancement. No abnormal enhancing masses or areas of non-mass enhancement in the right breast. LEFT BREAST: Fatty replaced breast tissue with no background enhancement. No abnormal enhancing masses or areas of non-mass enhancement in the left breast. No enlarged or abnormal lymph nodes. No abnormality in the visualized regions of the chest or liver. MRI/Breast Bilateral W/O and W IMPRESSION: No abnormality on the breast MRI without and with contrast. Alternate in the screening mammogram and breast MRI with contrast, given the patient''s history, would be appropriate continued surveillance. CATEGORY: BIRADS Category 2: Benign. A letter regarding these results will be sent to the patient by the facility within 30 days. Electronically Signed: Cali Shannon MD at 11:29 EST ,
== END | disposition home or self-care (01) ==
LOC: MRI 11:07
PROVIDERS: PCP Internal Medicine; Referring Provider Obstetrics & Gynecology; Visit Provider Obstetrics & Gynecology
DX: Z15.01 Genetic susceptibility to malignant neoplasm of breast (principal); Z80.3 Family history of malignant neoplasm of breast
CPT/HCPCS: 77049; A9575; A4216; C8908

== ENCOUNTER → 2024-06-24 | Outpatient (CLI) | payer MEDICAID, SELFPAY ==
[2024-06-25 12:08] LABS: Cancer Antigen 125 23.6 U/mL (0.0-38.1)
== END | disposition home or self-care (01) ==
LOC: BWCLAB 11:40
PROVIDERS: Referring Provider Obstetrics & Gynecology; Visit Provider Obstetrics & Gynecology
DX: Z15.01 Genetic susceptibility to malignant neoplasm of breast (principal); Z15.09 Genetic susceptibility to other malignant neoplasm
CPT/HCPCS: 36415; 86304

== ENCOUNTER 2024-06-29 15:38 | Observation (INO) | payer MEDICAID, SELFPAY ==
--- NOTE | 2024-06-15 11:37 | PAT.ANE_ITS ---
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 When Was Last Pacemaker Check QUESTION #4 FULL TEXT: You/Your Family Experience fever (hyperthermia) with Anesthesia Last Oral Intake Last Oral intake: Last Oral Intake NPO since Meds taken in AM with sips of water? 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 Female Yes 06/14/24 10:21 HX of Motion Sickness Yes 06/14/24 10:21 HX of N/V After Surgery Yes 06/14/24 10:21 Non-Smoker Yes 06/14/24 10:21 Duration of Surgery greater Yes 06/14/24 10:21 than 60 minutes Number of Risk Factors 5 06/14/24 10:21 PONV Score Severe Risk 06/14/24 10:21 Height & Weight Height & Weight: Anesthesia: Height & Weight Height 5 ft 6 in 04/22/24 09:30 Respiratory Assessment Respiratory Assessment - calender roll press operator: Respiratory Tract Infection Hx - calender roll press operator Hx Respiratory Tract Infection No 06/14/24 10:21 STOP Sleep Apnea STOP Sleep Apnea - calender roll press operator: STOP Sleep Apnea - calender roll press operator Hx Hypertension Yes: CONTROLLED WITH MED 06/14/24 10:21 Hx Sleep Apnea No 06/14/24 10:21 CPAP BIPAP Do you snore loudly (louder No 06/14/24 10:21 than talking or can be heard Do you often feel tired/ Yes 06/14/24 10:21 fatigued/ sleepy during daytime? Has anyone observed you stop No 06/14/24 10:21 breathing during sleep? STOP Results Positive 06/14/24 10:21 QUESTION #5 FULL TEXT : Do you snore loudly (louder than talking or can be heard through closed doors)? 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 Specify any problems Hx of Preganancy in last 3 No 06/14/24 10:21 Months Nurse Filling Out Transfusion DSCHRIBER 06/14/24 10:21 & Questions: Date: 06/14/24 06/14/24 10:21 Time: 10:22 06/14/24 10:21 Patient unable to answer at this time (ie. 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 roll press operator: /Reproductive Hx- calender roll press operator Hx Now No 06/14/24 10:21 Gestational Age (in weeks): EDC: Hx Hx Para Hx Section SAB No 06/14/24 10:21 [facility] [place] Medical History (Updated 06/14/24 @ 10:28 by Liz Andujar) Wears dentures Anxiety High cholesterol Back pain Migraine headache Shortness of breath on exertion Former smoker History of Holter monitoring History of echocardiogram History of stress test Cardiology follow-up encounter Preoperative evaluation to rule out surgical contraindication Preventative health care Dermatitis Grief Blood glucose elevated BRCA2 gene mutation positive Bicuspid aortic valve Hypokalemia Essential hypertension Palpitations Abdominal pain Family history of early CAD Chest pain Hyperlipidemia Bilateral foot pain Chronic back pain Migraines Home Medications ?Medication ?Instructions ?Recorded ?Last Taken ?Type cholecalciferol (vitamin D3) 125 125 mcg PO DAILY 08/30/23 Unknown History mcg (5,000 unit) capsule norgestimate 0.25 mg-ethinyl 1 tab PO QDAY #112 TABLETS 02/23/24 Unknown Rx estradiol 35 mcg tablet (Judith) fenofibrate nanocrystallized 145 145 mg PO DAILY #90 tabs 03/11/24 Unknown Rx mg tablet dupilumab 200 mg/1.14 mL 200 mg subcut Q2W 04/03/24 Unknown History subcutaneous pen injector (Dupixent) fexofenadine 60 mg tablet (Ana 60 mg PO QHS 04/08/24 Unknown History Allergy) hydrochlorothiazide 25 mg tablet 25 mg PO DAILY #90 tabs 05/01/24 Unknown Rx rosuvastatin 10 mg tablet 10 mg PO QHS 05/15/24 Unknown History coenzyme Q10 75 mg capsule (Ultra 75 mg PO QDAY 05/30/24 Unknown History CoQ10) potassium chloride 20 mEq 20 meq PO DAILY 06/14/24 Unknown History tablet,extended release propranolol 60 mg capsule,24 60 mg PO QHS 06/14/24 Unknown History hr,extended release Allergy/AdvReac Type Severity Reaction Status Date / Time amoxicillin (From Augmentin) Allergy Mild Vaginal Verified 06/14/24 10:18 Itching clavulanic acid (From Allergy Mild Vaginal Verified 06/14/24 10:18 Augmentin) Itching Family History (Updated 05/30/24 @ 14:52 by Luz Maria Carlos MA) Mother Heart disease Hypertension Myocardial infarction, Onset Age: 30 Breast cancer STAGE 4 Grandfather Heart disease Grandmother Diabetes CVA (cerebral vascular accident) Father Hypertension Surgical History (Updated 06/14/24 @ 10:28 by Liz Andujar) History of Social History household members: children housing: house number of children: 3 current occupational status: employed 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 Audit: Pertinent Findings Pertinent Findings EKG Perinent findings: November 11, 2021. Normal sinus rhythm. Stress test pertinent findings: February 11, 2022. Ejection fraction at rest was 55%. With stress ejection fraction increased to 70%. No obvious EKG changes with peak exercise. No symptoms of chest discomfort. Echo (EF%) pertinent findings: February 11, 2022. Ejection fraction 65%. Right ventricular systolic pressure is 28 mmHg. Aortic valve appears to be bicuspid with mild focal thickening and calcification. Consult pertinent findings: April 22, 2024. Eldon ALEXANDRE. 1. Bicuspid aortic valve-seen on the most recent echo of February 11, 2022. Patient currently appears to be stable. Will repeat echo prior to next visit. 2. Palpitations-patient has a history of palpitations. There is noted 8.6% ventricular ectopy recurrence rate on her last Holter. Stress and echo were reviewed with the patient. She will continue with propranolol 60 mg daily. 3. Hypertension-diastolic blood pressure slightly elevated in the office today. Patient will continue her current medical therapy. Additional pertinent findings: Holter monitor. November 30, 2021. Normal sinus rhythm. There was a 0.6% occurrence of ventricular ectopic beats. Patient noted shortness of breath palpitations rapid heart rate and dizziness which occasionally correlated with the ectopy. Recommendation Anesthesia Recommendation Anesthesia recommendation: OPTIMIZED for anesthesia
--- NOTE | 2024-06-27 07:30 | BREAST_PTH ---
PATIENT: ANA LILIA CUELLAR LOC: MS3 U#:[id number] AGE/SX: 38/F ROOM: [facility] [place]29/[address]: Dr. Tobi Chisholm MD : 1985 BED: 1 DIS: 06/30/2024 SPEC #: [id number] RECD: 06/28/24 09:50 STATUS: PEPE CANTU #: [id number] EMMIE: 06/27/24 07:[address]: Tobi Chisholm DEPT: SURGICAL PATHOLOGY RECD BY: Ari Redmond ENTERED: 06/28/24 10:49 SP TYPE: BREAST OTHR DR: MD Dr. Itzel Rothman MD Tissues: A - Right breast, NOS B - Left breast, NOS Procedures: Surgery Specimen Level V HEADER OPERATION: Prophylactic bilateral mastectomy combo case PRE-OP DIAGNOSIS: Positive BRCA gene TISSUE SUBMITTED: A- Right breast tissue, B- Left breast tissue MICROSCOPIC DIAGNOSIS A. Right breast tissue, prophylactic mastectomy: Fatty benign breast tissue with focal mild fibrocystic changes. Focal mild ductal dilatation. Nipple and areola, no pathologic diagnosis. B. Left breast tissue, prophylactic mastectomy: Fatty benign breast tissue with focal mild fibrocystic changes. Focal mild ductal dilatation. Nipple and areola, no pathologic diagnosis. . 07/03/2024 MICROSCOPIC DESCRIPTION Slides are reviewed. GROSS DESCRIPTION A. Received in fixative is one container labeled with the patient's name and designated Right breast tissue. The specimen consists of a mastectomy specimen consisting of breast tissue with nipple and areola complex. Breast tissue measures 25 x 19 x 5cm. The skin consistent with nipple areola complex measures 4.5 x 3cm. Nipple measures 1cm in greatest dimension. The specimen is inked as follows: anterior - yellow, posterior - black, superior - blue, inferior - green, medial - red and lateral - orange. Sections reveal yellow adipose cut surfaces mixed with scant welch fibrous areas. More dictation will follow after fixation. . 06/28/2024 Log Roper sections are submitted in ten cassettes as follows: 1- nipple, entirely submitted, 2-4- lateral portion of breast tissue (cassette 2 contains the areola), 5-6- central portion of breast tissue, 8-10- medial portion of breast tissue. Sections are submitted after additional fixation. . 07/01/2024 B. Received in fixative is one container labeled with the patient's name and designated Left breast tissue. The specimen consists of a mastectomy specimen consisting of breast tissue with nipple areola complex. Breast tissue measures 23 x 18 x 6cm. The skin consistent with nipple areola complex measures 5 x 3cm. Nipple measures 1cm in greatest dimension. The specimen is inked as follows: anterior - yellow, posterior - black, superior - blue over black, inferior - green, medial - red and lateral - orange. Sections reveal yellow adipose cut surfaces mixed with scant welch fibrous areas. More dictation will follow after fixation. . 06/28/2024 Log Roper sections are submitted in ten cassettes as follows: 1- nipple, entirely submitted, 2-4- lateral portion of breast tissue (cassette 2 contains the areola), 5-6- central portion of breast tissue, 8-10- medial portion of breast tissue. Sections are submitted after additional fixation. .mr 07/01/2024 TC:5 CPT:21827n2
[2024-06-28] VITALS (15 sets, daily range): BP systolic 101–131; BP diastolic 66–92; PULSE 88–105; RESP 14–16; TEMP 36.1–37.3; O2SAT 91–99; BMI 33.7
--- NOTE | 2024-06-28 06:37 | HP.PCM_ITS ---
History and Physical Date of Admission: 06/28/24 Intake Vital Signs 12/03/2414:13 04/08/2409:30 04/15/2408:45 Height 5 ft 6 in 5 ft 6 in 5 ft 6 in Weight: 197 lb 195 lb BMI 31.8 31.4 BP 118/72 131/91 H Blood Pressure Location Lt brachial Lt brachial Position Sitting Sitting Respiration 16 16 Pulse 87 Pulse Source Monitor Temp 97.9 F Temp Source Temporal Pulse Oximetry (%) 98 Oxygen Delivery Method room air Intake Visit Reasons: DISCUSS BREAST SURGERY Chief Complaint: discuss breast surgery Therapeutic Recreation Director Required: No Is patient in pain?: No Allergies amoxicillin (From Augmentin) Allergy (Mild, Verified 04/15/24 08:46) Vaginal Itchingclavulanic acid (From Augmentin) Allergy (Mild, Verified 04/15/24 08:46) Vaginal Itching Medications ?Medication ?Instructions ?Recorded ?Confirmed ?Type propranolol 60 mg capsule,24 60 mg PO Q24H #90 caps 04/17/23 04/15/24 Rx hr,extended release cholecalciferol (vitamin D3) 125 125 mcg PO DAILY 08/30/23 04/15/24 History mcg (5,000 unit) capsule potassium chloride 20 mEq See Rx Instructions .Route 09/15/23 04/15/24 Rx tablet,extended release .COMPLEX #90 tabs hydrochlorothiazide 25 mg tablet 25 mg PO DAILY #90 tabs 12/04/23 04/15/24 Rx norgestimate 0.25 mg-ethinyl 1 tab PO QDAY #112 TABLETS 02/23/24 04/15/24 Rx estradiol 35 mcg tablet (Judith) fenofibrate nanocrystallized 145 145 mg PO DAILY #90 tabs 03/11/24 04/15/24 Rx mg tablet dupilumab 200 mg/1.14 mL 200 mg subcut Q2W 04/03/24 04/15/24 History subcutaneous pen injector (Dupixent) fexofenadine 60 mg tablet (Ana 60 mg PO BID 04/08/24 04/15/24 History Allergy) rosuvastatin 10 mg tablet 10 mg PO QDAY #60 tabs 04/09/24 04/15/24 Rx Have you fallen in the past year?: No PFSH Medical History Preventative health care Dermatitis Grief Blood glucose elevated BRCA2 gene mutation positive Bicuspid aortic valve Hypokalemia Essential hypertension Palpitations Abdominal pain Family history of early CAD Chest pain Hyperlipidemia Bilateral foot pain Chronic back pain Migraines Surgical History History of 3 sections Family History Mother Heart disease Hypertension Myocardial infarction, Onset Age: 30 Breast cancer STAGE 4Grandfather Heart diseaseGrandmother Diabetes CVA (cerebral vascular accident)Father Hypertension Social History household members: children housing: house number of children: 3 current occupational status: employed 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 HPI HPI HPI: Patient is a 38-year-old female here to update her H&P before bilateral breast surgery. The patient is BRCA positive and previously discussed bilateral mastectomy with reconstruction. Patient recently saw plastic surgery and they are planning reconstruction. There have been no other changes. ROS General General: No weight change, appetite, fatigue, colon cancer, breast cancer or weakness HEENT HEENT: No difficulty swallowing, eye injury, eye surgery, swollen glands or hoarseness Endo Endocrine: No thyroid disease, diabetes mellitus, thyroid cancer, Hair loss, heat intolerance or cold intolerance Skin Skin: No rash or changing moles Breast Breast: No left breast lump, right breast lump, nipple discharge, breast pain, abnormal mammogram, abnormal US or breast enlargement Musc Musculoskeletal: Yes back problems; No arthritis, rheumatoid arthritis, gout or joint pain Cardio Cardiovascular: Yes high blood pressure; No murmur, pacemaker, heart disease, atrial fibrillation, heart attack, heart stent, palpitations, shortness of breat with exertion or chest pain Additional Details: pt states I have heart palpitations that I see [facility] for and thickening of the aortic root Psych Psychiatric: No depression, anxiety or hearing voices Resp Respiratory: No shortness of breath, No sleep apnea, No cough, No COPD, No asthma, No emphysema and No wheezing Gastro Gastrointestinal: No abdominal pain, No nausea or vomiting, No diarrhea, No constipation, No blood in stool, No acid reflux, No hemorrhoids, No ulcers, No gallbladder problem and No black,tarry stools Neto Hematologic: No blood thinners, No blood disorders, No bleeding, No anemia and No blood clots Neuro Neurologic: No numbness, No tingling and No weakness Exam Const General: cooperative Orientation: alert and oriented x3 HENMT Head: normal to inspection Neck Neck: normal visual inspection and full ROM Chest Chest palpation & inspection: normal inspection of the chest Resp Effort & Inspection: normal respiratory effort Auscultation: clear to auscultation bilaterally Cardio Rate: regular rate Rhythm: regular rhythm GI Inspection: non-distended Palpation: soft and nontender Skin General: no rashes or lesions noted Neuro General: patient alert and patient oriented x3 Extrem General: full ROM Psych Appearance: grossly normal Mental Status: mental status grossly normal Assessment and Plan Assessment and Plan (1) Family history of breast cancer: Status: Acute Comment: Mother Plan: Patient has positive BRCA gene and requested bilateral mastectomy. I discussed this with her during her last visit I discussed the risks again with her including but not limited to bleeding, infection, flap necrosis, fluid collecti on or chronic seroma. Patient understands all the risks and is willing to proceed with bilateral mastectomy and we will schedule this combo case with plastic surgery. Tobi Chisholm MD Pager: [facility] [address] [place] [address], [address] [place] [address] Office: I have seen and examined the patient and reviewed the H&P. THere are no changes
[2024-06-28 06:48] LABS: Internal QC Validated? YES +Cl - CLEAR BKGD; Pregnancy, Urine Negative Negative
[2024-06-28] MEDS: 0.9% Normal Saline (1000mL) 1,000 ML 15 ML IV (07:01)
--- NOTE | 2024-06-28 07:15 | PCM.HP.BLA ---
History and Physical Date of Admission: 06/28/24 The patient is examined and there are no changes to the H&P dated 05/30/2024. The patient presents for bilateral reconstruction following bilateral mastectomy. An informed consent was obtained. She is marked in the preop holding area prior to surgery. Assessment & Plan Assessment/Plan (1) Acquired absence of bilateral breasts and nipples: (2) Family history of breast cancer: PLAN: Plan For bilateral reconstruction following bilateral mastectomy
--- NOTE | 2024-06-28 07:26 | PCM.PRE.AN2 ---
ASA Classification* ASA Classification ASA Classification: 3 Assessment & Plan Anesthesia* Anesthesia Assessment Anesthesia Assessment: Discussed sedation and/or anesthesia options, risks, benefits, and alternatives with patient/parents/legal guardian/POA. Questions invited. The patient/parents/legal guardian/POA seems to understand and agrees to proceed with anesthesia plan. Reviewed the physical assessment, medical history, allergy history and patient home medications list prior to surgery/procedure/anesthetic and documented any changes. Performed airway and anesthesia risk assessments. Anesthesia Type Anesthesia Type: General Anesthesia Focused Assessment* Temperature: 99.1 F Pulse Rate: 88 Blood Pressure: 130/90 Respiratory Rate: 16 Pulse Ox: 99 Airway Assessment Mouth opens: >3 cm Mallampati Score: II Focused Labs Anesthesia Preop lab: CBC WBC 8.1 K/mm3 (4.4-11.0) 05/17/24 12:00 05/17/24 RBC 4.68 M/mm3 (4.2-5.4) 05/17/24 12:00 05/17/24 Hgb 14.3 g/dL (12.0-15.0) 05/17/24 12:00 05/17/24 Hct 42.7 % (37-47) 05/17/24 12:00 05/17/24 Plt Count 386 K/mm3 (150-450) 05/17/24 12:00 05/17/24 CHEMISTRY Potassium 4.1 mmol/L (3.5-5.1) 05/17/24 12:00 05/17/24 Sodium 138 mmol/L (136-145) 05/17/24 12:00 05/17/24 Magnesium 1.9 mg/dL (1.6-2.6) 02/11/22 13:50 02/11/22 BUN 12 mg/dL (7-18) 05/17/24 12:00 05/17/24 Creatinine 0.71 mg/dL (0.55-1.02) 05/17/24 12:00 05/17/24 Glucose 106 mg/dL (74-106) 05/17/24 12:00 05/17/24 POC Glucose 83 mg/dL (70-110) 06/17/14 05:43 06/17/14 TSH 0.52 uIU/mL (0.358-3.74) 05/01/23 12:01 05/01/23 COAG Urine Test Negative Negative 06/28/24 06:25 06/28/24 Pre-Assessment Diagnosis/Proposed Procedure Planned Operative Procedure(s): PROPHYLACTIC BILAT MASTECTOMY PER DR HATHAWAY BILAT RECONSTRUCTION FOLLOWING BILAT MASTECTOMY(TISSUE CAD DEVELOPER) WITH BILAT ACELLULAR DERMAL MATRIX PER DR BRIGGS Anesthesia History Anesthesia History - software developer: Anesthesia History - software developer Hx Hospitalization No 06/14/24 10:21 Any Problems With Anesthesia Yes: NAUSEA 06/14/24 10:21 Cholinesterase deficiency No 06/14/24 10:21 You/Your Family Experience No 06/14/24 10:21 fever (hyperthermia) with Relationship Recent Exposure to Contagious No 06/28/24 06:37 Disease Does patient have nerve No 06/14/24 10:21 stimulator Patient instructed to have device shut off --Does patient have Pacemaker No 06/28/24 06:37 or ICD? When Was Last Pacemaker Check QUESTION #4 FULL TEXT: You/Your Family Experience fever (hyperthermia) with Anesthesia Last Oral Intake Last Oral intake: Last Oral Intake NPO since 23:45 06/28/24 06:37 Meds taken in AM with sips of No 06/28/24 06:37 water? Meds patient instructed to take am of surgery PONV PONV - software developer: PONV - software developer Female Yes 06/14/24 10:21 HX of Motion Sickness Yes 06/14/24 10:21 HX of N/V After Surgery Yes 06/14/24 10:21 Non-Smoker Yes 06/14/24 10:21 Duration of Surgery greater Yes 06/14/24 10:21 than 60 minutes Number of Risk Factors 5 06/14/24 10:21 PONV Score Severe Risk 06/14/24 10:21 Height & Weight Height & Weight: Anesthesia: Height & Weight Height 5 ft 4 in 06/28/24 06:37 Weight: 89.1 kg 06/28/24 06:37 Body Mass Index (BMI) 33.7 06/28/24 06:37 Respiratory Assessment Respiratory Assessment - software developer: Respiratory Tract Infection Hx - software developer Hx Respiratory Tract Infection No 06/14/24 10:21 STOP Sleep Apnea STOP Sleep Apnea - software developer: STOP Sleep Apnea - software developer Hx Hypertension Yes: CONTROLLED WITH MED 06/14/24 10:21 Hx Sleep Apnea No 06/14/24 10:21 CPAP BIPAP Do you snore loudly (louder No 06/14/24 10:21 than talking or can be heard Do you often feel tired/ Yes 06/14/24 10:21 fatigued/ sleepy during daytime? Has anyone observed you stop No 06/14/24 10:21 breathing during sleep? STOP Results Positive 06/14/24 10:21 QUESTION #5 FULL TEXT : Do you snore loudly (louder than talking or can be heard through closed doors)? Tobacco Use History Tobacco Use History - software developer: Tobacco Use History - software developer Tobacco Use Smoking Status Former smoker 06/24/24 10:52 Hx Tobacco Use No 06/14/24 10:21 Years Smoking Packs Smoked per Day Smoking Cessation Date was Yes - quit smoking within 15 06/14/24 10:21 within the last 15 years years Hx Smoking Cessation Date 03/29/19 06/14/24 10:21 Hx Smoking Cessation No 06/14/24 10:21 Counseling Hematologic Medial History Hematologic Hx - software developer: Hematologic Medical Hx - dermatological surgeon Hx of Blood Transfusion No 06/14/24 10:21 Hx of Transfusion in last 3 No 06/14/24 10:21 Months Date of Last Transfusion (if within last 3 months) Ever experience any problems No 06/14/24 10:21 with transfusion(s)? Specify any problems Hx of Preganancy in last 3 No 06/14/24 10:21 Months Nurse Filling Out Transfusion DSCHRIBER 06/14/24 10:21 & Questions: Date: 06/14/24 06/14/24 10:21 Time: 10:22 06/14/24 10:21 Patient unable to answer at this time (ie. confused, unrespo /Reproduction History /Reproductive History - software developer: /Reproductive Hx- software developer Hx Now No 06/14/24 10:21 Gestational Age (in weeks): EDC: Hx Hx Para Hx Section SAB No 06/24/24 10:57 Active Medications Active Medications: Current Medications Generic Name Dose Route Start Last Admin Trade Name Freq PRN Reason Stop Dose Admin Cefazolin Sodium 2 gm/ N/A 20 mls @ 400 mls/hr 06/28/24 07:30 IV 06/28/24 07:32 PREOP ONE Sodium Chloride 1,000 mls @ 15 mls/hr 06/28/24 06:05 06/28/24 07:01 IV 07/03/24 19:24 15 mls/hr .Q48H GRZEGORZ Administration Protocol FORMERLY [facility], [facility]1983 Medical History Wears dentures Anxiety High cholesterol Back pain Migraine headache Shortness of breath on exertion Former smoker History of Holter monitoring History of echocardiogram History of stress test Cardiology follow-up encounter Preoperative evaluation to rule out surgical contraindication Preventative health care Dermatitis Grief Blood glucose elevated BRCA2 gene mutation positive Bicuspid aortic valve Hypokalemia Essential hypertension Palpitations Abdominal pain Family history of early CAD Chest pain Hyperlipidemia Bilateral foot pain Chronic back pain Migraines Home Medications ?Medication ?Instructions ?Recorded ?Last Taken ?Type cholecalciferol (vitamin D3) 125 125 mcg PO DAILY 08/30/23 06/27/24 History mcg (5,000 unit) capsule norgestimate 0.25 mg-ethinyl 1 tab PO QDAY #112 TABLETS 02/23/24 06/27/24 Rx estradiol 35 mcg tablet (Judith) fenofibrate nanocrystallized 145 145 mg PO DAILY #90 tabs 03/11/24 06/27/24 Rx mg tablet dupilumab 200 mg/1.14 mL 200 mg subcut Q2W 04/03/24 06/21/24 History subcutaneous pen injector (Dupixent) fexofenadine 60 mg tablet (Ana 60 mg PO QHS 04/08/24 06/27/24 History Allergy) hydrochlorothiazide 25 mg tablet 25 mg PO DAILY #90 tabs 05/01/24 06/27/24 Rx rosuvastatin 10 mg tablet 10 mg PO QHS 05/15/24 06/27/24 History coenzyme Q10 75 mg capsule (Ultra 75 mg PO QDAY 05/30/24 06/27/24 History CoQ10) potassium chloride 20 mEq 20 meq PO DAILY 06/14/24 06/27/24 History tablet,extended release propranolol 60 mg capsule,24 60 mg PO QHS 06/14/24 06/27/24 History hr,extended release Allergy/AdvReac Type Severity Reaction Status Date / Time amoxicillin (From Augmentin) Allergy Mild Vaginal Verified 06/28/24 06:27 Itching clavulanic acid (From Allergy Mild Vaginal Verified 06/28/24 06:27 Augmentin) Itching Family History Mother Heart disease Hypertension Myocardial infarction, Onset Age: 30 Breast cancer STAGE 4 Grandfather Heart disease Grandmother Diabetes CVA (cerebral vascular accident) Father Hypertension Surgical History History of Social History household members: children housing: house number of children: 3 current occupational status: employed 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
[2024-06-28] MEDS: Cefazolin 2 GM in Syringe IV (07:34)
[2024-06-28] MEDS: Gentamicin 80 MG/2 ML Vial (09:30)
--- NOTE | 2024-06-28 09:40 | PCM.OPRPT ---
Operative Report (Standard) Operative Information Date of Procedure: 06/28/24 Pre-Operative Diagnosis: Positive BRCA gene Post-Operative Diagnosis: Same Surgery/Procedure Performed: Bilateral prophylactic skin sparing mastectomies supervisor commercial fish hatchery: Yes Inside Upholsterer: Kelsy Duque Tasks completed by assistant paralegal: Opening, Closing and Retracting Type of Anesthesia: General/Regional RN Documented Start/Stop Times: Operation Date: 06/28/24 07:30 Case Time Into Pre-Op 06/28/24 06:03 Out of Pre-Op 06/28/24 07:30 Anesthesia Start 06/28/24 07:34 Into Room 06/28/24 07:34 Procedure Start 06/28/24 07:57 Procedure Start Time: 07:57 Procedure Stop Time: 09:10 Select all DRAINS/GRAFTS/IMPLANTS that apply: None Estimated Blood Loss: 20 Specimen collected: Yes Description of specimen(s) removed: bilateral breasts Description of surgery: Patient was brought to the operating room and general anesthesia was induced. The breasts were prepped and draped in usual sterile fashion. A keyhole incision was made around the areola on the right breast and then flaps were raised circumferentially. Dissection was carried out circumferentially and then the breast was removed from the pectoral muscle. The area was packed and hemostasis was obtained. Next the opposite breast was addressed. In the same fashion a keyhole incision was made around the areola and then flaps were raised and the breast was dissected free circumferentially using electrocautery. The breast was then removed from the pectoral wall. There was good hemostasis. The area was packed with wet gauze. Dr. Haines took over for the reconstruction portion of the procedure. Surgical Findings: None Complications Complications: No Admit VTE Documentation VTE Mechan Device Prophylaxis: SCD's
[2024-06-28] MEDS: Methylene Blue 1% 100 MG/10 ML VIAL (10:01)
[2024-06-28] MEDS: Bupivacaine 0.25% 30 ML Vial (14:31)
--- NOTE | 2024-06-28 14:52 | PCM.POST.ANE ---
Anesthesia: Postop Eval I Current Vital Signs Temperature: 98 F Pulse Rate: 105 Blood Pressure: 109/73 Respiratory Rate: 16 Pulse Ox: 94 Oxygen Delivery Method: Room Air Assessment Airway patent: Yes Spontaneous unlabored respirations: Yes Mental status: Awake and Calm nausea: No Vomiting: No Anesthesia Complication: No Fluid Hydration Crystalloid volume administer (ml): 3,300 Total IV fluid infused: 3,300 Progress Note Anesthesia document: Postop Eval 1 completed: Yes
--- NOTE | 2024-06-28 15:01 | OP.PCM_ITS ---
Problems Associated Problem List Diagnoses (1) Acquired absence of bilateral breasts and nipples: (2) Family history of breast cancer: Operative Report (Standard) Operative Information Date of Procedure: 06/28/24 Pre-Operative Diagnosis: Acquired absence bilateral breast status post mastectomy Post-Operative Diagnosis: Same Surgery/Procedure Performed: Bilateral breast reconstruction with tissue exp noe (Belden 350?[id number]) (300 cc initial fill each side) Bilateral implantation of ADM (Flex HD Pliable HP?1220) book salesman: Yes Rn Midwife: Kelsy Duque Tasks completed by community program assistant: Retracting Additional assistant strength coach?: No Type of Anesthesia: General RN Documented Start/Stop Times: Operation Date: 06/28/24 07:30 Case Time Into Pre-Op 06/28/24 06:03 Out of Pre-Op 06/28/24 07:30 Anesthesia Start 06/28/24 07:34 Into Room 06/28/24 07:34 Procedure Start 06/28/24 07:57 Procedure End 06/28/24 14:42 Anesthesia End 06/28/24 14:47 Out of Room 06/28/24 14:47 Into Recovery 06/28/24 14:50 Procedure Start Time: 09:30 Procedure Stop Time: 14:42 Select all DRAINS/GRAFTS/IMPLANTS that apply: Drains Drain details: Bilateral CARO drains Estimated Blood Loss: 75 cc Specimen collected: No Description of surgery: The patient presents today for reconstruction following bilateral prophylactic mastectomy. The procedure of breast reconstruction been thoroughly reviewed with the patient. The patient chooses to have reconstruction via tissue expanders. The expected pre-, intra-, postoperative course were reviewed. The patient understands that this is a multistage procedure and breast reconstruction is an approximation of her breast but is not a [place] breast. An informed consent was obtained. The patient is marked in the preop area prior to surgery. Immediately following the mastectomy, all the drapes were removed and the patient is reprepped. A damp sterile sponges is placed in both of the defects following the mastectomy. The patient is draped. We initially began with irrigating out the existing pockets from the mastectomy. After verifying hemos tasis, the inferior margin of the pectoralis major is identified and elevated creating a submuscular plane. The medial inferior attachments of the pectoralis major are elevated using cautery. The submuscular pocket is checked for hemostasis which is controlled with cautery. The dissection then continues inferiorly to the inframammary crease staying in a plane just above the fascia. The inframammary crease markings are then transferred to the fascia and the inferior and lateral aspect of the breast area. An ADM is opened. A template is made of the defect from the inferior leaf of the pectoralis major to the inframammary crease. This template is transferred onto the ADM and it is cut to size. The ADM was marked for orientation with the dermal aspect facing upwards against the mastectomy flaps and the epidermis facing towards the implant. This is initially tacked in place using Vicryl suture. After assuring satisfactory placement, it is sutured in place with a running PDS suture along the inframammary crease. A few Vicryl sutures are placed in the superior margin of the ADM and the pectoralis major margin but are left untied initially. We then prepare the tissue traffic incident management manager on the back table. It is first checked for leaks and with no leaks being found, all air is aspirated from the implant and the implant and tubing are primed with injectable saline. The port is then pr epared using the metal connector and this is anchored with silk ties. The mastectomy site is again checked for hemostasis and with this being satisfactory, the tissue traffic incident management manager is placed in the submuscular sub-ADM plane. The fill tube is brought out from this plane to the subcutaneous plane. The tubing is cut to size and attached to the port. A subcutaneous pocket had been created to house the port along the inferior ribs. 2 Vicryl sutures are placed within this pocket in order to tie to the flange of the port. These are anchored in place and the port is placed within the pocket. Some Vicryl sutures are used to completely cover the fill tube to reduce the risk of contamination from the CARO drain. A few fenestrations are made in the inferior aspect of the ADM. The ADM and pectoralis major are then sutured together with a running PDS suture. The previously placed Vicryl sutures are also tied. A CARO drain is placed through a stab incision on the lateral inferior breast and laid along the lateral gutter of the breast. The port is accessed and filled with methylene blue tinted injectable saline. A total of 300 cc are placed in each side. Following this, the skin and subcutaneous tissue is approximated. A few Vicryl sutures are first placed in the deep subcutaneous tissue and as a pursestring around the opening originating from the areola. A 3 layer closure was then perf ormed using strata fix suture and skin edges are approximated in a subcuticular fashion. The CARO drain is anchored in place with a nylon suture. 10 cc of quarter percent plain Marcaine are injected within the drain tube to bathe the mastectomy pocket. The identical procedure was performed on the opposite side. She was taken to the recovery room in an awakening in stable condition. Needle and sponge counts are correct. Surgical Findings: As above Complications Complications: No Admit VTE Documentation VTE Mechan Device Prophylaxis: SCD's
--- NOTE | 2024-06-28 15:11 | POSTOPAN2_ITS ---
Anesthesia Postop Eval I Sum Postop Eval Completion status Anesthesia document: Postop Eval 1 completed: Yes Anesthesia Postop Eval I Summary Anesthesia Postop Eval I Summary: Anesthesia Postop Eval I: Assessment Summary Airway patent Yes 06/28/24 14:53 FLOOR CARE [email or web address] Spontaneous unlabored Yes 06/28/24 14:53 FLOOR CARE TECHNICIAN.MDOT respirations Mental status Awake,Calm 06/28/24 14:53 FLOOR CARE [email or web address] nausea No 06/28/24 14:53 FLOOR CARE TECHNICIAN.MDOT Vomiting No 06/28/24 14:53 FLOOR CARE [email or web address] Anesthesia Postop Eval I: Fluid Summary Crystalloid volume administer 3,300 06/28/24 14:53 FLOOR CARE TECHNICIAN.MDOT (ml) Colloids volume administered ( ml) Blood Product volume administered (ml) Total IV fluid infused 3,300 06/28/24 14:53 FLOOR CARE [email or web address] Anesthesia Postop Eval I: Summary Notes Anesthesia Complication No 06/28/24 14:53 FLOOR CARE [email or web address] Anesthesia Complication Comment: Post-operative progress note Anesthesia: Postop Eval II Evaluation Mental status: Awake Pain Level: 2 nausea: Yes Vomiting: No
--- NOTE | 2024-06-28 15:11 | PCM.POSTANE2 ---
Anesthesia Postop Eval I Sum Postop Eval Completion status Anesthesia document: Postop Eval 1 completed: Yes Anesthesia Postop Eval I Summary Anesthesia Postop Eval I Summary: Anesthesia Postop Eval I: Assessment Summary Airway patent Yes 06/28/24 14:53 GOLF COURSE [email or web address] Spontaneous unlabored Yes 06/28/24 14:53 GOLF COURSE PATROLLER.MDOT respirations Mental status Awake,Calm 06/28/24 14:53 GOLF COURSE [email or web address].MDOT nausea No 06/28/24 14:53 GOLF COURSE PATROLLER.MDOT Vomiting No 06/28/24 14:53 GOLF COURSE [email or web address].MDOT Anesthesia Postop Eval I: Fluid Summary Crystalloid volume administer 3,300 06/28/24 14:53 GOLF COURSE PATROLLER.MDOT (ml) Colloids volume administered ( ml) Blood Product volume administered (ml) Total IV fluid infused 3,300 06/28/24 14:53 GOLF COURSE PATROLLER.MDOT Anesthesia Postop Eval I: Summary Notes Anesthesia Complication No 06/28/24 14:53 GOLF COURSE PATROLLER.MDOT Anesthesia Complication Comment: Post-operative progress note Anesthesia: Postop Eval II Evaluation Mental status: Awake Pain Level: 2 nausea: Yes Vomiting: No
[2024-06-28] MEDS: Acetaminophen 325 MG Tablet 650 MG PO (17:47)
[2024-06-28] MEDS: Dextrose 5%-Lactated Ringers 1,000 ML 50 ML IV (17:47)
[2024-06-28] MEDS: oxyCODONE 5 MG Tablet PO ×2 (19:00→22:28)
[2024-06-28] MEDS: Ondansetron 4 MG/2 ML Vial IV (22:29)
[2024-06-28] MEDS: 0.9% Saline Lock 10 ML Syringe IV (22:31)
[2024-06-28] MEDS: Cefazolin 1 GM/50 ML BAG IV (22:54)
[2024-06-29] VITALS (7 sets, daily range): BP systolic 109–121; BP diastolic 73–83; PULSE 82–98; RESP 16–18; TEMP 36.4–36.8; O2SAT 95–100
[2024-06-29] MEDS: Acetaminophen 325 MG Tablet 650 MG PO ×4 (00:05→18:05)
[2024-06-29] MEDS: oxyCODONE 5 MG Tablet PO ×5 (04:12→20:42)
[2024-06-29] MEDS: proMETHazine 25 MG/ML Syringe IM (04:13)
[2024-06-29] MEDS: Cefazolin 1 GM/50 ML BAG IV (05:58)
[2024-06-29 07:08] LABS: Hematocrit 36.7 % (37-47)
--- NOTE | 2024-06-29 08:25 | PCM.PN.SRG ---
Subjective Subjective Patient reports she had a rough night with a lot of pain. She is tolerating a diet. No nausea or vomiting. Objective Data Objective Data Vital Signs: Vital Signs Temp Pulse Resp BP Pulse Ox O2 Del Method 97.8 F 82 16 118/80 95 Room Air 06/29/24 06:06 06/29/24 06:06 06/29/24 06:06 06/29/24 06:06 06/29/24 06:06 06/29/24 06:06 Oxygen Delivery Method Room Air Weight: 196 lb 6.91 oz Body Mass Index (BMI) 33.7 Intake & Output: Intake and Output for Last 24 Hours 06/27/24 06/28/24 06/29/24 23:59 23:59 23:59 Intake Total 3181.75 / 3181.75 100 / 100 Output Total 400 / 400 Balance 2781.75 / 2781.75 100 / 100 Lab / Micro Data 06/29/24 06:13 Labs: Laboratory Results - last 24 hr 06/29/24 06:13: Hgb 12.0, Hct 36.7 L Physical Exam Const oriented x3 and no apparent distress Resp normal respiratory effort GI normal to inspection, nondistended, normoactive bowel sounds Assessment & Plan Assessment/Plan (1) Acquired absence of bilateral breasts and nipples: PLAN: Patient had bilateral mastectomy yesterday and she had a rough night. As long as she can tolerate a regular diet and her pain is well-controlled on oral meds only I will discharge her home today. Tobi Chisholm MD Pager: [facility] [address] [place] [address], [address] [place] [address] Office:
--- NOTE | 2024-06-29 08:26 | PCM.DC.SUM ---
Providers Primary Care Physician: Dr. Joseph Bustamante MD Reason For Visit: Prophylactic bilateral Mastectomy combo case w/Gha Diagnosis Discharge Diagnosis (1) Acquired absence of bilateral breasts and nipples: Status: Acute Code(s): Z90.13 - Acquired absence of bilateral breasts and nipples Plan: Patient had bilateral mastectomy yesterday and she had a rough night. As long as she can tolerate a regular diet and her pain is well-controlled on oral meds only I will discharge her home today. Tobi Chisholm MD Pager: [facility] [address] [place] [address], [address] [place] [phone] Office: Medications at Discharge Home Medications cholecalciferol (vitamin D3) 125 mcg (5,000 unit) capsule 125 mcg PO DAILY 08/30/23 norgestimate 0.25 mg-ethinyl estradiol 35 mcg tablet (Judith) 1 tab PO QDAY #112 TABLETS 02/23/24 fenofibrate nanocrystallized 145 mg tablet 145 mg PO DAILY #90 tabs 03/11/24 dupilumab 200 mg/1.14 mL subcutaneous pen injector (Dupixent) 200 mg subcut Q2W 04/03/24 fexofenadine 60 mg tablet (Ana Allergy) 60 mg PO QHS 04/08/24 hydrochlorothiazide 25 mg tablet 25 mg PO DAILY #90 tabs 05/01/24 rosuvastatin 10 mg tablet 10 mg PO QHS 05/15/24 coenzyme Q10 75 mg capsule (Ultra CoQ10) 75 mg PO QDAY 05/30/24 potassium chloride 20 mEq tablet,extended release 20 meq PO DAILY 06/14/24 propranolol 60 mg capsule,24 hr,extended release 60 mg PO QHS 06/14/24 Hospital Course Summary of Care Provided Hospital Course: Patient was admitted after a bilateral mastectomy for observation. Once tolerating pain medication she was discharged home. Weight / BMI Weight Weight: 196 lb 6.91 oz Body Mass Index (BMI) 33.7 ABG / Lab / Microbiology Data 06/29/24 06:13 Laboratory: Laboratory Results - last 24 hr 06/29/24 06:13: Hgb 12.0, Hct 36.7 L D/C Instructions Discharge Diet: Light diet - advance as tolerated Discharge Activity: May Not Drive (until cleared by Dr Haines) and May Not Shower Lifting Restrictions: 15 lbs for 2 weeks Call your doctor if your incision/area has: Continuous Slow Oozing, Sudden Increased Bleeding, Increased Pain/ Swelling, Increased Redness, Foul Smelling Discharge and Swelling at the incision site Call your doctor if you observe: Fever of 101 or Higher Drain: Suction DC O2, CPAP, BIPAP Needs Home O2 Discharge instructions: No Please Follow Up With: Itzel Haines MD When: as scheduled Meaningful Use Info Meaningful Use Meaningful Use Diagnoses (Choose all that apply): None applicable Ischemic Stroke Statin Dosing Therapy Reference: STATIN DOSE THERAPY REFERENCE: * Patients > 75 years receive moderate or high dose statin therapy. * Patients 75 years or YOUNGER should receive HIGH intensity statin dose unless contraindicated. You will be required to document reason for non-treatment if statin daily dose does not meet guidelines. HIGH DOSE STATIN THERAPY DAILY Atorvastatin > than or = to 40 mg Rosuvastatin > than or = to 20 mg Amlodipine + Atorvastatin > than or = to 2.5/40 mg Ezetimibe + Simvastatin 10/80 mg Simvastatin 80mg Discharge Plan Admission Attending Provider: Tobi Chisholm Primary Care Provider: Joseph Bustamante Consulting Providers: Itzel Haines Instructions Print Language: Kinyarwanda Discharge Orders/Prescriptions Prescriptions: Continued cholecalciferol (vitamin D3) 125 mcg (5,000 unit) capsule 125 mcg PO DAILY fexofenadine [Ana Allergy] 60 mg tablet 60 mg PO QHS Dupixent Pen 200 mg/1.14 mL pen injector 200 mg subcut Q2W rosuvastatin 10 mg tablet 10 mg PO QHS Ultra CoQ10 75 mg capsule 75 mg PO QDAY propranolol 60 mg capsule,extended release 24 hr 60 mg PO QHS potassium chloride 20 mEq tablet extended release 20 meq PO DAILY Rx Instructions: TAKE 1 TABLET BY MOUTH DAILY norgestimate-ethinyl estradiol [Judith] 0.25-35 mg-mcg tablet 1 tab PO QDAY Qty: 112 5RF fenofibrate nanocrystallized 145 mg tablet 145 mg PO DAILY Qty: 90 3RF hydrochlorothiazide 25 mg tablet 25 mg PO DAILY Qty: 90 1RF Referrals / Follow Up: Joseph Bustamante MD [Primary Care Provider] - Disposition Disposition (needs filled in before D/C Order can be placed): Home, Self Care
--- NOTE | 2024-06-29 09:18 | PN.SURG_ITS ---
Subjective Subjective She complains of pain last night which was difficult to control. She received an oxycodone this morning. Objective Data Objective Data Vital Signs: Vital Signs Temp Pulse Resp BP Pulse Ox O2 Del Method 97.8 F 82 16 118/80 95 Room Air 06/29/24 06:06 06/29/24 06:06 06/29/24 06:06 06/29/24 06:06 06/29/24 06:06 06/29/24 06:06 Oxygen Delivery Method Room Air Weight: 196 lb 6.91 oz Body Mass Index (BMI) 33.7 Intake & Output: Intake and Output for Last 24 Hours 06/27/24 06/28/24 06/29/24 23:59 23:59 23:59 Intake Total 3181.75 / 3181.75 100 / 100 Output Total 400 / 400 Balance 2781.75 / 2781.75 100 / 100 Lab / Micro Data Attestation: I reviewed the patient's lab results. 06/29/24 06:13 Labs: Laboratory Results - last 24 hr 06/29/24 06:13: Hgb 12.0, Hct 36.7 L Physical Exam Narrative The patient is afebrile and vital signs are stable. Her hemoglobin is within normal limits. Her blood pressure medicines have not been reordered in light of her current normal blood pressure. The patient's dressings are intact and dry. The incisions are well- approximated. There is no evidence of skin compromise. The CARO drains are draining serous bloody drainage with 55 cc per side overnight. Her SCDs are on and functioning. I reviewed at length with the patient the importance of using her incentive spirometer and walking. The drain and dressings were reviewed with her her and her family. I have encouraged her family to review the instructions that were given to the patient during the preop preparation. We will assess her pain tolerance to determine the appropriate time for discharge. Const alert General Appearance: cooperative Assessment & Plan Assessment/Plan (1) Status post bilateral breast reconstruction: PLAN: Plan Agree with plan to discharge once pain controlled with oral pain medication.
--- NOTE | 2024-06-29 14:38 | CASEMGMT ---
DIANNA CORREIA Assessment: Face to Face with pt for initial transition planning/care coordination assessment. RN BREN introduced self and role at [facility], pt voices understanding and consents to assessment. Pt is A&O x4 and answers all questions appropriately at this time. Pt sitting up in bed in no distress. Care providers, pharmacy, and demographics verified/updated. Admitting Dx: Prphylactic bilateral mastectomy combo case PCP: Dianna Specialists: [facility] Preferred [facility]acy[facility] Insurance: [employer] Prescription Benefit: yes LNOK: Master, Significant other; Daughter, Mindy Living Arrangements: Pt lives with significant other and children in a 2 story home with 3 steps to enter. ADLs: Pt I at baseline Transportation: Pt drives self and denies concerns with transportation. DME: Denies HHC/SNF: Denies Hx of. Pt states no concerns with going home at time of dc. Pt states no further concerns/needs. CM to follow. Advised pt to ask CM if any further question/concerns/needs arise, voices understanding. Pt Goal: Home Plan: Home Clark BUSTAMANTE CM
[2024-06-30 00:30] VITALS: BP 123/78; PULSE 105; RESP 16; TEMP 36.6; O2SAT 96
[2024-06-30] MEDS: Acetaminophen 325 MG Tablet 650 MG PO ×2 (00:54→08:26)
[2024-06-30] MEDS: oxyCODONE 5 MG Tablet PO ×3 (00:55→10:09)
[2024-06-30 05:00] VITALS: BP 112/84; PULSE 101; RESP 18; TEMP 36.6; O2SAT 98
--- NOTE | 2024-06-30 08:43 | PCM.PN.SRG ---
Subjective Subjective Patient is doing well. She rates her pain at a 5. Objective Data Objective Data Vital Signs: Vital Signs Temp Pulse Resp BP Pulse Ox O2 Del Method 97.9 F 101 H 18 112/84 H 98 Room Air 06/30/24 05:00 06/30/24 05:00 06/30/24 05:00 06/30/24 05:00 06/30/24 05:00 06/30/24 05:00 Oxygen Delivery Method Room Air Weight: 196 lb 6.91 oz Body Mass Index (BMI) 33.7 Intake & Output: Intake and Output for Last 24 Hours 06/28/24 06/29/24 06/30/24 23:59 23:59 23:59 Intake Total 3181.75 / 3181.75 1264.17 / 1664.17 600 / 600 Output Total 400 / 400 125 / 125 Balance 2781.75 / 2781.75 1139.17 / 1539.17 600 / 600 Lab / Micro Data 06/29/24 06:13 Physical Exam Const oriented x3 and no apparent distress Resp normal respiratory effort GI soft to palpation and non-tender Assessment & Plan Assessment/Plan (1) Status post bilateral breast reconstruction: PLAN: Patient's pain is improved today. I will discharge her home. Follow-up with Dr. Haines for drain management and dressing change on Monday. Tobi Chisholm MD Pager: [facility] [address] [place] [address], [address] [place] [phone] Office:
[2024-06-30 09:23] VITALS: BP 122/85; PULSE 107; RESP 16; TEMP 36.6; O2SAT 99
[2024-06-30] MEDS: proMETHazine 25 MG/ML Syringe IM (10:50)
== END 2024-06-30 11:39 | disposition home or self-care (01) ==
LOC: MS3 07-05 12:14 → SDC 07-05 12:14
PROVIDERS: Anesthesiology; Plastic Surgery; Admitting Provider Surgery; PCP Internal Medicine; Referring Provider Surgery; Visit Provider Surgery
PROC: (CPT 19303; principal; 2024-06-28 07:15)
PROC: (CPT 19357; 2024-06-28 07:15)
DX: Z40.01 Encounter for prophylactic removal of breast (principal); Z87.891 Personal history of nicotine dependence; E78.5 Hyperlipidemia, unspecified; Z90.13 Acquired absence of bilateral breasts and nipples; Z15.01 Genetic susceptibility to malignant neoplasm of breast; I10 Essential (primary) hypertension; Z79.899 Other long term (current) drug therapy; Z80.3 Family history of malignant neoplasm of breast
CPT/HCPCS: 19357; 19303; 15777 ×2; 00400; 36415; 81025; 85014; 85018; 88307; 94668; 96365; 96366; 96372; 96375; 99221; A4216; G0378; J2405

== ENCOUNTER 2024-07-25 06:00 | Day surgery (SDC) | payer MEDICAID, SELFPAY ==
--- NOTE | 2024-07-24 18:37 | PAT.ANESEVAL ---
Pre-Assessment Diagnosis/Proposed Procedure Planned Operative Procedure(s): BILAT BREAST INCISION REVISION Anesthesia History Anesthesia History - collar padder blindstitch: Anesthesia History - collar padder blindstitch Hx Hospitalization No 07/24/24 13:40 Any Problems With Anesthesia Yes: NAUSEA 07/24/24 13:40 Cholinesterase deficiency No 07/24/24 13:40 You/Your Family Experience No 07/24/24 13:40 fever (hyperthermia) with Relationship Recent Exposure to Contagious No 06/28/24 06:37 Disease Does patient have nerve No 07/24/24 13:40 stimulator Patient instructed to have device shut off --Does patient have Pacemaker or ICD? When Was Last Pacemaker Check QUESTION #4 FULL TEXT: You/Your Family Experience fever (hyperthermia) with Anesthesia Last Oral Intake Last Oral intake: Last Oral Intake NPO since Meds taken in AM with sips of water? Meds patient instructed to take am of surgery PONV PONV - collar padder blindstitch: PONV - collar padder blindstitch Female Yes 07/24/24 13:40 HX of Motion Sickness Yes 07/24/24 13:40 HX of N/V After Surgery Yes 07/24/24 13:40 Non-Smoker Yes 07/24/24 13:40 Duration of Surgery greater Yes 07/24/24 13:40 than 60 minutes Number of Risk Factors 5 07/24/24 13:40 PONV Score Severe Risk 07/24/24 13:40 Height & Weight Height & Weight: Anesthesia: Height & Weight Height 5 ft 4 in 07/24/24 10:20 Respiratory Assessment Respiratory Assessment - collar padder blindstitch: Respiratory Tract Infection Hx - collar padder blindstitch Hx Respiratory Tract Infection No 07/24/24 13:40 STOP Sleep Apnea STOP Sleep Apnea - collar padder blindstitch: STOP Sleep Apnea - collar padder blindstitch Hx Hypertension Yes: CONTROLLED WITH MED 07/24/24 13:40 Hx Sleep Apnea No 07/24/24 13:40 CPAP BIPAP Do you snore loudly (louder No 07/24/24 13:40 than talking or can be heard Do you often feel tired/ No 07/24/24 13:40 fatigued/ sleepy during daytime? Has anyone observed you stop No 07/24/24 13:40 breathing during sleep? STOP Results Negative 07/24/24 13:40 QUESTION #5 FULL TEXT : Do you snore loudly (louder than talking or can be heard through closed doors)? 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 Specify any problems Hx of Preganancy in last 3 No 07/24/24 13:40 Months Nurse Filling Out Transfusion DSCHRIBER 07/24/24 13:40 & Questions: Date: 07/24/24 07/24/24 13:40 Time: 13:41 07/24/24 13:40 Patient unable to answer at this time (ie. confused, unrespo /Reproduction History /Reproductive History - collar padder blindstitch: /Reproductive Hx- collar padder blindstitch Hx Now Gestational Age (in weeks): EDC: Hx Hx Para Hx Section SAB No 07/24/24 13:40 Active Medications Active Medications: Current Medications Generic Name Dose Route Start Last Admin Trade Name Freq PRN Reason Stop Dose Admin Cefazolin Sodium 2 gm/ N/A 20 mls @ 400 mls/hr 07/25/24 07:00 IV 07/25/24 07:02 PREOP [facility] Medical History (Updated 07/24/24 @ 11:[address] Itzel Haines MD) Wears dentures Anxiety High cholesterol Back pain Migraine headache Shortness of breath on exertion Former smoker History of Holter monitoring History of echocardiogram History of stress test Cardiology follow-up encounter Preoperative evaluation to rule out surgical contraindication Preventative health care Dermatitis Grief Blood glucose elevated BRCA2 gene mutation positive Bicuspid aortic valve Hypokalemia Essential hypertension Palpitations Abdominal pain Family history of early CAD Chest pain Hyperlipidemia Bilateral foot pain Chronic back pain Migraines Home Medications ?Medication ?Instructions ?Recorded ?Last Taken ?Type cholecalciferol (vitamin D3) 125 125 mcg PO DAILY 08/30/23 06/27/24 History mcg (5,000 unit) capsule norgestimate 0.25 mg-ethinyl 1 tab PO QDAY #112 TABLETS 02/23/24 06/27/24 Rx estradiol 35 mcg tablet (Judith) fenofibrate nanocrystallized 145 145 mg PO DAILY #90 tabs 03/11/24 06/27/24 Rx mg tablet dupilumab 200 mg/1.14 mL 200 mg subcut Q2W 04/03/24 06/21/24 History subcutaneous pen injector (Dupixent) fexofenadine 60 mg tablet (Ana 60 mg PO QHS 04/08/24 06/27/24 History Allergy) hydrochlorothiazide 25 mg tablet 25 mg PO DAILY #90 tabs 05/01/24 06/27/24 Rx rosuvastatin 10 mg tablet 10 mg PO QHS 05/15/24 06/27/24 History coenzyme Q10 75 mg capsule (Ultra 75 mg PO QDAY 05/30/24 06/27/24 History CoQ10) potassium chloride 20 mEq 20 meq PO DAILY 06/14/24 06/27/24 History tablet,extended release propranolol 60 mg capsule,24 60 mg PO QHS 06/14/24 06/27/24 History hr,extended release tacrolimus 0.1 % topical ointment 1 applic topical BID PRN INCISION 07/03/24 Unknown History LINE silver sulfadiazine 1 % topical 1 applic topical DAILY #20 grams 07/16/24 Unknown Rx cream (Silvadene) cephalexin 500 mg capsule 500 mg PO BID #21 caps 07/24/24 Unknown Rx Allergy/AdvReac Type Severity Reaction Status Date / Time amoxicillin (From Augmentin) Allergy Mild Vaginal Verified 07/24/24 13:36 Itching clavulanic acid (From Allergy Mild Vaginal Verified 07/24/24 13:36 Augmentin) Itching Family History Mother Heart disease Hypertension Myocardial infarction, Onset Age: 30 Breast cancer STAGE 4 Grandfather Heart disease Grandmother Diabetes CVA (cerebral vascular accident) Father Hypertension Surgical History (Updated 07/24/24 @ 13:45 by Liz Andujar) Hx of bilateral mastectomy History of Social History household members: children housing: house number of children: 3 current occupational status: employed 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 Normal sinus rhythm. Stress test pertinent findings: February 11, 2022. Ejection fraction at rest was 55%. With stress ejection fraction increased to 70%. No obvious EKG changes with peak exercise. No symptoms of chest discomfort. Echo (EF%) pertinent findings: February 11, 2022. Ejection fraction 65%. Right ventricular systolic pressure is 28 mmHg. Aortic valve appears to be bicuspid with mild focal thickening and calcification. Consult pertinent findings: April 22, 2024. Eldon ALEXANDRE. 1. Bicuspid aortic valve-seen on the most recent echo of February 11, 2022. Patient currently appears to be stable. Will repeat echo prior to next visit. 2. Palpitations-patient has a history of palpitations. There is noted 8.6% ventricular ectopy recurrence rate on her last Holter. Stress and echo were reviewed with the patient. She will continue with propranolol 60 mg daily. 3. Hypertension-diastolic blood pressure slightly elevated in the office today. Patient will continue her current medical therapy. Additional pertinent findings: Holter monitor. November 30, 2021. Normal sinus rhythm. There was a 0.6% occurrence of ventricular ectopic beats. Patient noted shortness of breath palpitations rapid heart rate and dizziness which occasionally correlated with the ectopy. Recommendation Anesthesia Recommendation Anesthesia recommendation: OPTIMIZED for anesthesia
[2024-07-25] VITALS (14 sets, daily range): BP systolic 123–145; BP diastolic 80–105; PULSE 85–106; RESP 12–18; TEMP 36.2–37; O2SAT 94–99; BMI 33.3
[2024-07-25] MEDS: 0.9% Normal Saline (1000mL) 1,000 ML 15 ML IV (06:10)
[2024-07-25 06:25] LABS: Internal QC Validated? YES +Cl - CLEAR BKGD; Pregnancy, Urine Negative Negative
--- NOTE | 2024-07-25 06:51 | PCM.PRE.AN2 ---
ASA Classification* ASA Classification ASA Classification: 2 Assessment & Plan Anesthesia* Anesthesia Assessment Anesthesia Assessment: Discussed sedation and/or anesthesia options, risks, benefits, and alternatives with patient/parents/legal guardian/POA. Questions invited. The patient/parents/legal guardian/POA seems to understand and agrees to proceed with anesthesia plan. Reviewed the physical assessment, medical history, allergy history and patient home medications list prior to surgery/procedure/anesthetic and documented any changes. Performed airway and anesthesia risk assessments. Anesthesia Type Anesthesia Type: General History Source History Obtained from:: Patient and Chart Anesthesia Focused Assessment* Temperature: 98.6 F Pulse Rate: 85 Blood Pressure: 124/88 Respiratory Rate: 16 Pulse Ox: 99 Oxygen Delivery Method: Room Air Airway Assessment Mouth opens: >3 cm Mallampati Score: I Teeth Condition: Dentures (Full upper and lower dentures.) Neck Range of motion (ROM): Full ROM Focused Labs Anesthesia Preop lab: CBC WBC 8.1 K/mm3 (4.4-11.0) 05/17/24 12:00 05/17/24 RBC 4.68 M/mm3 (4.2-5.4) 05/17/24 12:00 05/17/24 Hgb 12.0 g/dL (12.0-15.0) 06/29/24 06:13 06/29/24 Hct 36.7 % (37-47) L 06/29/24 06:13 06/29/24 Plt Count 386 K/mm3 (150-450) 05/17/24 12:00 05/17/24 CHEMISTRY Potassium 4.1 mmol/L (3.5-5.1) 05/17/24 12:00 05/17/24 Sodium 138 mmol/L (136-145) 05/17/24 12:00 05/17/24 Magnesium 1.9 mg/dL (1.6-2.6) 02/11/22 13:50 02/11/22 BUN 12 mg/dL (7-18) 05/17/24 12:00 05/17/24 Creatinine 0.71 mg/dL (0.55-1.02) 05/17/24 12:00 05/17/24 Glucose 106 mg/dL (74-106) 05/17/24 12:00 05/17/24 POC Glucose 83 mg/dL (70-110) 06/17/14 05:43 06/17/14 TSH 0.52 uIU/mL (0.358-3.74) 05/01/23 12:01 05/01/23 COAG Urine Test Negative Negative 07/25/24 06:18 07/25/24 Pre-Assessment Diagnosis/Proposed Procedure Planned Operative Procedure(s): BILAT BREAST INCISION REVISION Anesthesia History 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 When Was Last Pacemaker Check QUESTION #4 FULL TEXT: You/Your Family Experience fever (hyperthermia) with Anesthesia Last Oral Intake Last Oral intake: Last Oral Intake NPO since 00:00 07/25/24 06:37 Meds taken in AM with sips of water? 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 Female Yes 07/24/24 13:40 HX of Motion Sickness Yes 07/24/24 13:40 HX of N/V After Surgery Yes 07/24/24 13:40 Non-Smoker Yes 07/24/24 13:40 Duration of Surgery greater Yes 07/24/24 13:40 than 60 minutes Number of Risk Factors 5 07/24/24 13:40 PONV Score Severe Risk 07/24/24 13:40 Height & Weight Height & Weight: Anesthesia: Height & Weight Height 5 ft 4 in 07/25/24 06:37 Weight: 87.9 kg 07/25/24 06:37 Body Mass Index (BMI) 33.3 07/25/24 06:37 Respiratory Assessment Respiratory Assessment - tag machine operator: Respiratory Tract Infection Hx - tag machine operator Hx Respiratory Tract Infection No 07/24/24 13:40 STOP Sleep Apnea STOP Sleep Apnea - tag machine operator: STOP Sleep Apnea - tag machine operator Hx Hypertension Yes: CONTROLLED WITH MED 07/24/24 13:40 Hx Sleep Apnea No 07/24/24 13:40 CPAP BIPAP Do you snore loudly (louder No 07/24/24 13:40 than talking or can be heard Do you often feel tired/ No 07/24/24 13:40 fatigued/ sleepy during daytime? Has anyone observed you stop No 07/24/24 13:40 breathing during sleep? STOP Results Negative 07/24/24 13:40 QUESTION #5 FULL TEXT : Do you snore loudly (louder than talking or can be heard through closed doors)? 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 Specify any problems Hx of Preganancy in last 3 No 07/24/24 13:40 Months Nurse Filling Out Transfusion DSCHRIBER 07/24/24 13:40 & Questions: Date: 07/24/24 07/24/24 13:40 Time: 13:41 07/24/24 13:40 Patient unable to answer at this time (ie. confused, unrespo /Reproduction History /Reproductive History - tag machine operator: /Reproductive Hx- tag machine operator Hx Now Gestational Age (in weeks): EDC: Hx Hx Para Hx Section SAB No 07/24/24 13:40 Active Medications Active Medications: Current Medications Generic Name Dose Route Start Last Admin Trade Name Freq PRN Reason Stop Dose Admin Cefazolin Sodium 2 gm/ N/A 20 mls @ 400 mls/hr 07/25/24 07:00 IV 07/25/24 07:02 PREOP ONE Sodium Chloride 1,000 mls @ 15 mls/hr 07/25/24 06:10 07/25/24 06:10 IV 07/30/24 19:29 15 mls/hr .Q48H GRZEGORZ Administration Protocol [facility] Medical History Wears dentures Anxiety High cholesterol Back pain Migraine headache Shortness of breath on exertion Former smoker History of Holter monitoring History of echocardiogram History of stress test Cardiology follow-up encounter Preoperative evaluation to rule out surgical contraindication Preventative health care Dermatitis Grief Blood glucose elevated BRCA2 gene mutation positive Bicuspid aortic valve Hypokalemia Essential hypertension Palpitations Abdominal pain Family history of early CAD Chest pain Hyperlipidemia Bilateral foot pain Chronic back pain Migraines Home Medications ?Medication ?Instructions ?Recorded ?Last Taken ?Type cholecalciferol (vitamin D3) 125 125 mcg PO DAILY 08/30/23 07/24/24 History mcg (5,000 unit) capsule norgestimate 0.25 mg-ethinyl 1 tab PO QDAY #112 TABLETS 02/23/24 07/24/24 Rx estradiol 35 mcg tablet (Judith) fenofibrate nanocrystallized 145 145 mg PO DAILY #90 tabs 03/11/24 07/24/24 Rx mg tablet dupilumab 200 mg/1.14 mL 200 mg subcut Q2W 04/03/24 06/21/24 History subcutaneous pen injector (Dupixent) fexofenadine 60 mg tablet (Ana 60 mg PO QHS 04/08/24 07/24/24 History Allergy) hydrochlorothiazide 25 mg tablet 25 mg PO DAILY #90 tabs 05/01/24 07/24/24 Rx rosuvastatin 10 mg tablet 10 mg PO QHS 05/15/24 07/24/24 History coenzyme Q10 75 mg capsule (Ultra 75 mg PO QDAY 05/30/24 07/24/24 History CoQ10) potassium chloride 20 mEq 20 meq PO DAILY 06/14/24 07/24/24 History tablet,extended release propranolol 60 mg capsule,24 60 mg PO QHS 06/14/24 07/24/24 History hr,extended release tacrolimus 0.1 % topical ointment 1 applic topical BID PRN INCISION 07/03/24 07/24/24 History LINE silver sulfadiazine 1 % topical 1 applic topical DAILY #20 grams 07/16/24 07/24/24 Rx cream (Silvadene) cephalexin 500 mg capsule 500 mg PO BID #21 caps 07/24/24 07/24/24 Rx Allergy/AdvReac Type Severity Reaction Status Date / Time amoxicillin (From Augmentin) Allergy Mild Vaginal Verified 07/25/24 06:36 Itching clavulanic acid (From Allergy Mild Vaginal Verified 07/25/24 06:36 Augmentin) Itching Family History Mother Heart disease Hypertension Myocardial infarction, Onset Age: 30 Breast cancer STAGE 4 Grandfather Heart disease Grandmother Diabetes CVA (cerebral vascular accident) Father Hypertension Surgical History Hx of bilateral mastectomy History of Social History household members: children housing: house number of children: 3 current occupational status: employed 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
--- NOTE | 2024-07-25 07:14 | PCM.HP.BLA ---
History and Physical Date of Admission: 07/25/24 The patient is examined and there are no changes to the H&P dated 07/24/24. The patient presents for bilateral breast incision revisions. Informed consent was obtained. She is marked in the pre-op holding area. Assessment & Plan Assessment/Plan (1) Status post bilateral breast reconstruction: (2) Incisional breast wound: PLAN: Plan For minor revisions bilateral breast incisions.
[2024-07-25] MEDS: Gentamicin 80 MG/2 ML Vial (07:29)
[2024-07-25] MEDS: Cefazolin 2 GM in Syringe IV (07:29)
--- NOTE | 2024-07-25 07:30 | WND_PTH ---
PATIENT: ANA LILIA CUELLAR LOC: [facility] [place] U#:[id number] AGE/SX: 38/F ROOM: RE07/25/[address]: Dr. Itzel Haines MD : 1985 BED: DIS: 07/25/2024 SPEC #: [id number] RECD: 07/25/24 13:40 STATUS: PEPE CANTU #: [id number] EMMIE: 07/25/24 07:[address]: Itzel Haines DEPT: SURGICAL PATHOLOGY RECD BY: Ari Redmond ENTERED: 07/25/24 14:08 SP TYPE: Wound OTHR DR: Dr. Joseph Bustamante MD Tissues: A - Right breast, NOS B - Left breast, NOS Procedures: Surgery Specimen Level IV HEADER OPERATION: Bilateral breast incision revision PRE-OP DIAGNOSIS: Status post bilateral breast reconstruction, incisional breast wound TISSUE SUBMITTED: A- Right breast wound skin line, B- Left breast wound skin line MICROSCOPIC DIAGNOSIS A. Right breast wound skin line, incision revision: Skin with underlying tissue with ulceration, acute and chronic inflammation. B. Left breast wound skin line, incision revision: Skin with underlying tissue with ulceration, acute and chronic inflammation. 07/26/2024 MICROSCOPIC DESCRIPTION Slides are reviewed. GROSS DESCRIPTION A. Received in fixative is one container labeled with the patient's name and designated Right breast wound skin line. The specimen consists of an irregular piece of skin measuring 12cm in length and up to 0.3 to 1cm in width and up to 0.5cm in depth. Focal area of congestion is noted. Guest Service Host sections are submitted in one cassette. B. Received in fixative is one container labeled with the patient's name and designated Left breast wound skin line. The specimen consists of a piece of skin with underlying tissue measuring 4 x 1.2 x 0.3cm. The skin surface shows a central area of disrupted incisional line in the center portion of the specimen. Also present in the container is a detached piece of skin with underlying tissue measuring in aggregate 2.5 x 1.5 x 0.5cm. A few sutures are also noted in the specimen. Guest Service Host sections are submitted in one cassette. 07/25/2024 TC:2 CPT:[id number]
--- NOTE | 2024-07-25 09:33 | DCINST_ITS ---
Discharge Instructions Dressing / Incision Additional Dressing/Incision Instructions:: Keep the present dressing in place until seen in the office. Keep your back elevated to reduce swelling. Take the oral antibiotic 2 times a day until finished. Avoid excessive use of your arms. Follow Up Care Please Follow Up With: Itzel Haines MD When: Next week Test Results: Test results from this visit will be discussed in further detail at your follow- up appointment, if applicable. Discharge Plan Admission Attending Provider: Itzel Haines Primary Care Provider: Joseph Bustamante Instructions Print Language: Estonian Discharge Orders/Prescriptions Prescriptions: No Action cholecalciferol (vitamin D3) 125 mcg (5,000 unit) capsule 125 mcg PO DAILY fexofenadine [Ana Allergy] 60 mg tablet 60 mg PO QHS Dupixent Pen 200 mg/1.14 mL pen injector 200 mg subcut Q2W rosuvastatin 10 mg tablet 10 mg PO QHS tacrolimus 0.1 % ointment 1 applic topical BID PRN (Reason: INCISION LINE) Ultra CoQ10 75 mg capsule 75 mg PO QDAY silver sulfadiazine [Silvadene] 1 % cream 1 applic topical DAILY Qty: 20 1RF Rx Instructions: apply a thin layer to the affected site 1 time a day cephalexin 500 mg capsule 500 mg PO BID Qty: 21 0RF propranolol 60 mg capsule,extended release 24 hr 60 mg PO QHS potassium chloride 20 mEq tablet extended release 20 meq PO DAILY Rx Instructions: TAKE 1 TABLET BY MOUTH DAILY norgestimate-ethinyl estradiol [Judith] 0.25-35 mg-mcg tablet 1 tab PO QDAY Qty: 112 5RF fenofibrate nanocrystallized 145 mg tablet 145 mg PO DAILY Qty: 90 3RF hydrochlorothiazide 25 mg tablet 25 mg PO DAILY Qty: 90 1RF Disposition Disposition (needs filled in before D/C Order can be placed): Home, Self Care
--- NOTE | 2024-07-25 09:39 | PCM.POST.ANE ---
Anesthesia: Postop Eval I Current Vital Signs Temperature: 97.2 F Pulse Rate: 104 Blood Pressure: 145/105 Respiratory Rate: 12 Pulse Ox: 96 Oxygen Delivery Method: Room Air Assessment Airway patent: Yes Spontaneous unlabored respirations: Yes Mental status: Calm and Asleep nausea: No Vomiting: No Anesthesia Complication: No Fluid Hydration Crystalloid volume administer (ml): 1,400 Total IV fluid infused: 1,400 Progress Note Anesthesia document: Postop Eval 1 completed: Yes
--- NOTE | 2024-07-25 09:40 | OP.PCM_ITS ---
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 Post-Operative Diagnosis: Same Surgery/Procedure Performed: Excision breast incision sites with culture and irrigation (9 cm right, 9 cm left); Intermediate closure right and left breast incisions inorganic chemistry professor: Yes Presidential Helicopter Crew Chief: Akshat Servin Tasks completed by internet marketing assistant: Retracting Type of Anesthesia: General RN Documented Start/Stop Times: Operation Date: 07/25/24 07:30 Case Time Into Pre-Op 07/25/24 06:05 Out of Pre-Op 07/25/24 07:20 Anesthesia Start 07/25/24 07:29 Into Room 07/25/24 07:29 Procedure Start 07/25/24 07:59 Procedure End 07/25/24 09:30 Anesthesia End 07/25/24 09:34 Out of Room 07/25/24 09:34 Procedure Start Time: 07:59 Procedure Stop Time: 09:30 Select all DRAINS/GRAFTS/IMPLANTS that apply: None Estimated Blood Loss: Minimal Specimen collected: Yes Description of specimen(s) removed: Breast incisions Description of surgery: The patient presents approximately 3 weeks status post bilateral prophylactic mastectomies and reconstruction with tissue expanders. She had some discoloration of her skin edges and was noted yesterday to have superficial necrosis of the right breast incision and a portion of the left. There was no evidence of cellulitis or drainage. She presents today for excision of the previous incision sites and closure in order to prevent wound dehiscence and implant exposure. The patient is brought to the operating room and placed under general anesthesia in the supine position. Care is taken to pad all pressure points, apply sequential compression stockings and a warming blanket. The breast and chest are prepped and draped in the usual sterile fashion. We initially began with incising the compromised portion of the incision. Following this cultures were taken of the subcutaneous tissue (both anaerobic and aerobic). No purulent drainage is encountered. The extent of the wound undermining is limited. The wound is irrigated out thoroughly initially with a gentamicin antibiotic irrigation followed by a dilute Betadine irrigation. The wound is then closed in layers using a Monocryl sutureS in [id number] fashion of the subcutaneous tissue. Following this, skin edges are approximated with a running chromic suture. Further reinforcement the closure is done with interrupted Prolene suture. The identical procedure was performed on the opposite side. No purulent drainage is encountered on either side, but cultures taken nonetheless. The incisions are dressed with Xeroform and fluff gauze and she is placed in a surgery bra. She tolerated the procedure well was taken to the recovery area in an awake and stable condition. Needle and sponge counts are correct. Surgical Findings: Skin edge necrosis Complications Complications: No Admit VTE Documentation VTE Mechan Device Prophylaxis: SCD's
--- NOTE | 2024-07-25 12:09 | POSTOPAN2_ITS ---
Anesthesia Postop Eval I Sum Postop Eval Completion status Anesthesia document: Postop Eval 1 completed: Yes Anesthesia Postop Eval I Summary Anesthesia Postop Eval I Summary: Anesthesia Postop Eval I: Assessment Summary Airway patent Yes 07/25/24 09:39 PULMONARY PHYSICAL [email or web address] Spontaneous unlabored Yes 07/25/24 09:39 PULMONARY PHYSICAL THERAPIST.MDOT respirations Mental status Calm,Asleep 07/25/24 09:39 PULMONARY PHYSICAL THERAPIST.MDOT nausea No 07/25/24 09:39 PULMONARY PHYSICAL THERAPIST.MDOT Vomiting No 07/25/24 09:39 PULMONARY PHYSICAL THERAPIST.[email or web address] Anesthesia Postop Eval I: Fluid Summary Crystalloid volume administer 1,400 07/25/24 09:39 PULMONARY PHYSICAL THERAPIST.MDOT (ml) Colloids volume administered ( ml) Blood Product volume administered (ml) Total IV fluid infused 1,400 07/25/24 09:39 PULMONARY PHYSICAL THERAPIST.MDOT Anesthesia Postop Eval I: Summary Notes Anesthesia Complication No 07/25/24 09:39 PULMONARY PHYSICAL THERAPIST.MDOT Anesthesia Complication Comment: Post-operative progress note Anesthesia: Postop Eval II Evaluation Mental status: Awake and Calm Pain Level: 0 nausea: No Vomiting: No Complications Anesthesia Complication: No
--- NOTE | 2024-07-25 12:09 | PCM.POSTANE2 ---
Anesthesia Postop Eval I Sum Postop Eval Completion status Anesthesia document: Postop Eval 1 completed: Yes Anesthesia Postop Eval I Summary Anesthesia Postop Eval I Summary: Anesthesia Postop Eval I: Assessment Summary Airway patent Yes 07/25/24 09:39 SOCIAL SCIENCE [email or web address] Spontaneous unlabored Yes 07/25/24 09:39 SOCIAL SCIENCE PROFESSOR.MDOT respirations Mental status Calm,Asleep 07/25/24 09:39 SOCIAL SCIENCE PROFESSOR.MDOT nausea No 07/25/24 09:39 SOCIAL SCIENCE PROFESSOR.MDOT Vomiting No 07/25/24 09:39 SOCIAL SCIENCE PROFESSOR.MDOT Anesthesia Postop Eval I: Fluid Summary Crystalloid volume administer 1,400 07/25/24 09:39 SOCIAL SCIENCE PROFESSOR.MDOT (ml) Colloids volume administered ( ml) Blood Product volume administered (ml) Total IV fluid infused 1,400 07/25/24 09:39 SOCIAL SCIENCE PROFESSOR.MDOT Anesthesia Postop Eval I: Summary Notes Anesthesia Complication No 07/25/24 09:39 SOCIAL SCIENCE PROFESSOR.MDOT Anesthesia Complication Comment: Post-operative progress note Anesthesia: Postop Eval II Evaluation Mental status: Awake and Calm Pain Level: 0 nausea: No Vomiting: No Complications Anesthesia Complication: No
== END 2024-07-25 13:54 | disposition home or self-care (01) ==
LOC: SDC 06:01 → AC 06:02
PROVIDERS: Anesthesiology; PCP Internal Medicine; Referring Provider Plastic Surgery; Visit Provider Plastic Surgery
PROC: (CPT 19357; principal; 2024-07-25 07:15)
DX: S21.001A Unspecified open wound of right breast, initial encounter (principal); S21.002A Unspecified open wound of left breast, initial encounter; I10 Essential (primary) hypertension; Z79.899 Other long term (current) drug therapy; X58.XXXA Exposure to other specified factors, initial encounter
CPT/HCPCS: 11406; 00400; 81025; 87070; 87075; 87102; 87205; 87206; 88305; J2405

== ENCOUNTER → 2024-07-31 | Outpatient (CLI) | payer MEDICAID, SELFPAY ==
[2024-07-31 12:33] LABS: Absolute Lymphocyte Count 2.35 X10^3/uL (0.83-4.51); Absolute Neutrophil Count 6.7 X10^3/uL (2.0-7.7); Basophil# 0.06 X10^3/uL; Basophil% 0.6 % (0-1); Eosinophil# 0.41 X10^3/uL; Hematocrit 42.8 % (37-47); Lymphocyte # 2.35 X10^3/ul (0.83-4.51); Lymphocyte % 22.8 % (19-41); Mean Corp Hgb Conc 32.7 g/dL (32-36); Mean Corpuscular Hgb 30.4 pg (27.0-32.0); Mean Platelet Vol. 10.7 fl (6.2-12.0); Monocyte# 0.74 X10^3/uL; Monocyte% 7.2 % (0-10); NRBC Flagged by Analyzer 0 % (0-5); Neutrophil # 6.72 X10^3/uL (2.7-7.7); Platelet Count 338 K/mm3 (150-450); RBC Distribution Width CV 11.9 % (11.6-14.6); RBC Distribution Width SD 41.1 fl (35.1-43.9); White Blood Count 10.3 K/mm3 (4.4-11.0)
[2024-07-31 13:06] LABS: Hemoglobin A1c 5.7 % (<=5.6)
[2024-07-31 13:13] LABS: ALB/GLOB Ratio 1.2 RATIO (0.9-2.4); AST(SGOT) 19 U/L (<=31); Alanine Aminotransfer ALT/SGPT 10 U/L (<=34); Albumin, Serum 4.1 g/dL (3.5-5.0); Alkaline Phosphatase 58 U/L (35-104); Anion Gap 15 (5-15); BUN 12 mg/dL (4-19); BUN/Creat Ratio 22.7 RATIO (10-20); Calcium,Total 9.7 mg/dL (7.6-11.0); Carbon Dioxide 23.3 mmol/L (21.0-32.0); Chloride 100 mmol/L (98-108); Cholesterol 172 mg/dL (<=200); Creatinine, Serum 0.53 mg/dL (0.70-1.20); EST Glomerular Filtration Rate 121 (>60); Globulin 3.3 g/dL (2.2-4.2); Glucose 98 mg/dL (70-99); High Density Lipoprotein 46 mg/dL; Low Density Lipoprotein Calc. 76 mg/dL; Protein, Total 7.3 g/dL (5.9-8.4); Sodium Level 138 mmol/L (133-145); Total Bilirubin 0.27 mg/dL (0.00-1.30); Triglycerides 249 mg/dL; Very Low Density Lipoprotein 50 mg/dL (5-40); cholesterol:hdl ratio screen 3.75
== END | disposition home or self-care (01) ==
LOC: BIMLAB 08:24
PROVIDERS: PCP Internal Medicine; Referring Provider Internal Medicine; Visit Provider Internal Medicine
DX: I10 Essential (primary) hypertension (principal); R73.9 Hyperglycemia, unspecified; E78.1 Pure hyperglyceridemia
CPT/HCPCS: 36415; 80053; 80061; 83036; 85025

== ENCOUNTER 2024-09-17 10:07 | Emergency (ER) | payer MEDICAID, SELFPAY ==
[2024-09-17 10:08] VITALS: BP 137/107; PULSE 90; RESP 18; TEMP 36.8; O2SAT 97; BMI 34.7
--- NOTE | 2024-09-17 10:26 | CT_ITS ---
PROCEDURE: CHEST WITH CONTRAST 09/17/2024 REASON FOR EXAM: CHEST INJURY due to a recent fall. Recent bilateral mastectomy. TECHNIQUE: Prone and supine chest CT with intravenous contrast, high resolution CT (HRCT) protocol. Coronal and Sagittal reconstruction series were provided. CONTRAST: Isovue 370 VOLUME: 93 mL One or more dose reduction techniques were used (e.g., Automated exposure control, adjustment of the mA and/or kV according to patient size, use of iterative reconstruction technique). RADIATION DOSE SUMMARY: CTDlvol: 15.5 mGy DLP: 639.93 mGycm COMPARISON: None FINDINGS: Hardware: The patient is status post bilateral mastectomy and breast implants. Lymph nodes: None Heart and Vasculature: Normal heart size. No pericardial effusion. Thoracic aorta and pulmonary arteries are unremarkable. Lungs and Airways: The lungs are normally expanded and clear. No septal thickening nodules or abnormal pulmonary opacities. Pleura: Unremarkable Upper Abdomen: Unremarkable Bones: Unremarkable CT/Chest WITH Contrast IMPRESSION: No acute abnormality is seen. Reading Location: [place] [id number]
--- NOTE | 2024-09-17 10:27 | EX.ED.GENINJ ---
HPI History of Present Illness Chief Complaint: Chest Other Informant: patient Narrative Narrative: Sent from her plastic surgeon office for evaluation of traumatic injury. Patient with elective bilateral mastectomy reconstruction with expanders placed June 28. She had subsequent infection and wound care weekly. 4 days ago working in the yard mechanical fall onto her chest, increasing pain since then right greater than left. Pain worse with deep breaths. No head injuries. I discussed with her surgeon Dr. Haines prior to arrival concerns for hematoma versus rib fractures versus pneumothorax. Patient does not take any blood thinners. Reports surgery performed due to mother passing away from breast cancer a year ago she has the BRCA2 gene mutation therefore decision was made for her surgery. She has upcoming plans for hysterectomy. No headache neck pain back pain. She has been using ibuprofen. [facility] Medical History Skin flap necrosis Incisional breast wound Delayed wound healing Obesity (BMI 30-39.9) Wears dentures Anxiety High cholesterol Back pain Migraine headache Shortness of breath on exertion Former smoker History of Holter monitoring History of echocardiogram History of stress test Cardiology follow-up encounter Preoperative evaluation to rule out surgical contraindication Preventative health care Dermatitis Grief Blood glucose elevated BRCA2 gene mutation positive Bicuspid aortic valve Hypokalemia Essential hypertension Palpitations Abdominal pain Family history of early CAD Chest pain Hyperlipidemia Bilateral foot pain Chronic back pain Migraines Home Medications ?Medication ?Instructions ?Recorded ?Last Taken ?Type cholecalciferol (vitamin D3) 125 125 mcg PO DAILY 08/30/23 09/16/24 History mcg (5,000 unit) capsule norgestimate 0.25 mg-ethinyl 1 tab PO QDAY #112 TABLETS 02/23/24 09/16/24 Rx estradiol 35 mcg tablet (Judith) fenofibrate nanocrystallized 145 145 mg PO DAILY #90 tabs 03/11/24 09/16/24 Rx mg tablet dupilumab 200 mg/1.14 mL 200 mg subcut Q2W 04/03/24 09/12/24 History subcutaneous pen injector (Dupixent) fexofenadine 60 mg tablet (Ana 60 mg PO QHS 04/08/24 09/16/24 History Allergy) coenzyme Q10 75 mg capsule (Ultra 75 mg PO QDAY 05/30/24 09/16/24 History CoQ10) potassium chloride 20 mEq 20 meq PO DAILY 06/14/24 09/16/24 History tablet,extended release silver sulfadiazine 1 % topical 1 applic topical DAILY #20 grams 07/16/24 07/24/24 Rx cream (Silvadene) hydrochlorothiazide 25 mg tablet 25 mg PO DAILY #90 tabs 08/05/24 09/16/24 Rx propranolol 60 mg capsule,24 60 mg PO QHS #90 caps 08/05/24 09/16/24 Rx hr,extended release rosuvastatin 10 mg tablet 10 mg PO QHS #90 tabs 08/05/24 09/16/24 Rx Allergy/AdvReac Type Severity Reaction Status Date / Time amoxicillin (From Augmentin) Allergy Mild Vaginal Verified 09/17/24 10:12 Itching clavulanic acid (From Allergy Mild Vaginal Verified 09/17/24 10:12 Augmentin) Itching Family History Mother Heart disease Hypertension Myocardial infarction, Onset Age: 30 Breast cancer STAGE 4 Grandfather Heart disease Grandmother Diabetes CVA (cerebral vascular accident) Father Hypertension Surgical History Hx of bilateral mastectomy History of Social History household members: children housing: house number of children: 3 current occupational status: employed 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 [employer] Smoking Status: Former smoker how long ago did patient quit smoking: quit 10 years ago alcohol intake: never substance use type: does not use what type of physical activity do you participate in: none and walking frequency: daily seatbelt use: always do you feel safe at home: Yes additional social history: Single ROS ROS ED Constitutional Constitutional ED: Denies chills, fever(s) or sweats ENT ENT ED: Denies sore throat Cardiovascular Cardiovascular: Reports other Details: Chest wall pain right greater than left ; Denies chest pain, leg edema, palpitations or racing heartbeat Respiratory/Chest Respiratory/Chest: Reports dyspnea; Denies cough or dyspnea on exertion Gastrointestinal Gastrointestinal: Denies abdominal pain, diarrhea, nausea or vomiting Genitourinary Genitourinary ED: Denies dysuria, hematuria or urinary frequency Musculoskeletal Musculoskeletal: Denies back pain, extremity pain or neck pain Integumentary Denies rash or wounds Neurologic Neurologic: Denies headache(s), paresthesias or weakness EXAM Physical Exam Const Vital Signs: 09/17/24 10:08 09/17/24 11:49 Temperature 98.3 F 98.3 F Temperature Source Oral Pulse Rate 90 90 Respiratory Rate 18 18 Blood Pressure 137/107 H 128/70 H Blood Pressure Mean 117 89 Pulse Ox 97 97 Oxygen Delivery Method Room Air Positive well nourished and well developed General Appearance ED: well developed and NAD HEENT Reports moist mucous membranes normocephalic and atraumatic Eyes General Eye ED: Yes normal appearance of both eyes Neck full ROM Chest Wall Chest Narrative: Nursing metal box maker: Bilateral breast incisions clean, dry, intact. Tender palpation right chest wall no crepitus no ecchymosis. Chest: tenderness Resp normal respiratory effort and normal air movement Resp Narrative: Symmetric breath sounds. Effort and Inspection: symmetric chest movement; Negative for respiratory distress Cardio regular rate, regular rhythm and no murmurs Peripheral Pulses: pulses 2+ throughout GI normal to inspection, nondistended, normoactive bowel sounds and non-tender Palpation: Negative for guarding or rebound tenderness present Extremity normal to inspection General Extremety ED: Negative for edema or tenderness General Extremity: Negative for edema Neuro oriented x3 and no sensory deficits noted Sensorium / Orientation: awake and alert Skin Skin Narrative: See above MDM MDM MDM Narrative Medical decision making narrative: Interventions / MDM: Differential diagnosis: Chest wall contusion, recent mastectomy with reconstruction Diagnosis considered but do not suspect: Pneumothorax, hematoma, rib fractures however CT negative. My EKG interpretation: N/A Imaging independently reviewed and interpreted by myself: CT chest with IV contrast: No acute process, no fractures, no hematoma, no pneumothorax, implants intact, all read by radiology. External documents reviewed: N/A Test considered but not ordered:N/A ED course: Patient declines any pain medicine at this time. Sent in for trauma injury of chest wall with recent surgeries. IV established for basic labs and hCG. CT chest with IV contrast for further evaluation. [address] Chest negative. Patient reassured on findings. She will continue ibuprofen. I did we speak with Dr. Haines, patient will follow-up as planned weekly. Re-evaluation: stable Disposition discussed with patient/family/significant other: Patient Case discussed with consulting clinician: plastic surgeon, Dr. Haines This note was generated with alooma dictation software. It may contain incorrect words, spelling, and punctuation that were not noted in checking the note before signing. Lab Data Labs: Laboratory Results - last 24 hr 09/17/24 10:36 WBC 8.5 RBC 4.67 Hgb 14.3 Hct 42.4 MCV 90.8 MCH 30.6 MCHC 33.7 RDW Std Deviation 39.2 RDW Coeff of Lyle 11.9 Plt Count 324 MPV 10.3 Immature Gran % (Auto) 0.200 Neut % (Auto) 63.6 Lymph % (Auto) 23.3 [place] % (Auto) 9.7 Eos % (Auto) 2.7 Baso % (Auto) 0.5 Absolute Neuts (auto) 5.4 Absolute Lymphs (auto) 1.98 Nucleated RBC % 0 Sodium 136 Potassium 3.8 Chloride 102 Carbon Dioxide 22.7 Anion Gap 12 BUN 12 Creatinine 0.50 L Estim Creat Clear Calc 165.97 Est GFR (MDRD) Non-Af 122 BUN/Creatinine Ratio 24.1 H Glucose 106 H Calcium 9.5 Serum , Qual NEGATIVE Radiography Diagnostic Testing: Clinical Impression(s) from Imaging Studies Chest CT 09/17/24 10:26 IMPRESSION: No acute abnormality is seen. Reading Location: [place] [address] Discharge Plan Triage Chief Complaint: Chest Other ED Provider: Saul Ritchie Dx/Rx/DC Orders Clinical Impression: Chest wall injury, Status post bilateral breast reconstruction Instructions: ED Chest Wall Contusion Prescriptions: No Action cholecalciferol (vitamin D3) 125 mcg (5,000 unit) capsule 125 mcg PO DAILY fexofenadine [Ana Allergy] 60 mg tablet 60 mg PO QHS Dupixent Pen 200 mg/1.14 mL pen injector 200 mg subcut Q2W propranolol 60 mg capsule,extended release 24 hr 60 mg PO QHS Qty: 90 1RF hydrochlorothiazide 25 mg tablet 25 mg PO DAILY Qty: 90 1RF rosuvastatin 10 mg tablet 10 mg PO QHS Qty: 90 1RF Ultra CoQ10 75 mg capsule 75 mg PO QDAY silver sulfadiazine [Silvadene] 1 % cream 1 applic topical DAILY Qty: 20 1RF Rx Instructions: apply a thin layer to the affected site 1 time a day potassium chloride 20 mEq tablet extended release 20 meq PO DAILY Rx Instructions: TAKE 1 TABLET BY MOUTH DAILY norgestimate-ethinyl estradiol [Judith] 0.25-35 mg-mcg tablet 1 tab PO QDAY Qty: 112 5RF fenofibrate nanocrystallized 145 mg tablet 145 mg PO DAILY Qty: 90 3RF Primary Care Provider: Joseph Bustamante Referrals: Joseph Bustamante MD [Primary Care Provider] - Itzel Haines MD [Med Staff - Active Staff] - Keep [facility] appointment Activity Restrictions/Additional Instructions: CT chest with IV contrast no acute process. Continue ibuprofen 6 mL every 6 hours as needed. Keep your follow-up with Dr. Haines. Print Language: Bahraini Disposition Disposition: Home, Self Care Discharge Date/Time: 09/17/24 11:50
[2024-09-17 10:47] LABS: Absolute Lymphocyte Count 1.98 X10^3/uL (0.83-4.51); Absolute Neutrophil Count 5.4 X10^3/uL (2.0-7.7); Basophil# 0.04 X10^3/uL; Basophil% 0.5 % (0-1); Eosinophil# 0.23 X10^3/uL; Eosinophils% 2.7 % (0-5); Hematocrit 42.4 % (37-47); Hemoglobin 14.3 g/dL (12.0-15.0); Lymphocyte # 1.98 X10^3/ul (0.83-4.51); Lymphocyte % 23.3 % (19-41); Mean Corp Hgb Conc 33.7 g/dL (32-36); Mean Corpuscular Hgb 30.6 pg (27.0-32.0); Mean Corpuscular Volume 90.8 fL (81-99); Mean Platelet Vol. 10.3 fl (6.2-12.0); Monocyte# 0.82 X10^3/uL; Monocyte% 9.7 % (0-10); NRBC Flagged by Analyzer 0 % (0-5); Neutrophil % 63.6 % (47-70); Platelet Count 324 K/mm3 (150-450); RBC Distribution Width CV 11.9 % (11.6-14.6); RBC Distribution Width SD 39.2 fl (35.1-43.9); Red Blood Count 4.67 M/mm3 (4.2-5.4); White Blood Count 8.5 K/mm3 (4.4-11.0)
[2024-09-17 11:15] LABS: Internal QC Validated? YES +Cl - CLEAR BKGD; Pregnancy, Serum, hCG Quali. NEGATIVE Negative
[2024-09-17 11:17] LABS: Anion Gap 12 (5-15); BUN 12 mg/dL (4-19); BUN/Creat Ratio 24.1 RATIO (10-20); Calcium,Total 9.5 mg/dL (7.6-11.0); Carbon Dioxide 22.7 mmol/L (21.0-32.0); Chloride 102 mmol/L (98-108); EST Glomerular Filtration Rate 122 (>60); Estimated Creatinine Clearance 165.97 ml/min (50-250); Glucose 106 mg/dL (70-99); Potassium 3.8 mmol/L (3.3-5.1); Sodium Level 136 mmol/L (133-145)
[2024-09-17 11:49] VITALS: BP 128/70; PULSE 90; RESP 18; TEMP 36.8; O2SAT 97
== END 2024-09-17 11:50 | disposition home or self-care (01) ==
PROVIDERS: Emergency Provider Emergency Medicine; PCP Internal Medicine; Visit Provider Emergency Medicine
DX: S29.009A Unspecified injury of muscle and tendon of unspecified wall of thorax, initial encounter (principal); I10 Essential (primary) hypertension; Z87.891 Personal history of nicotine dependence; Z79.899 Other long term (current) drug therapy; W19.XXXA Unspecified fall, initial encounter
CPT/HCPCS: 71260; 80048; 84703; 85025; 99282; Q9967; A4216

== ENCOUNTER → 2024-09-23 | Outpatient (CLI) | payer MEDICAID, SELFPAY ==
--- NOTE | 2024-09-23 12:53 | US_ITS ---
PROCEDURE: PELVIC W/ TRANSVAGINAL 09/23/2024 REASON FOR EXAM: BRCA2 GENE MUTATION POSITIVE TECHNIQUE: Transabdominal and transvaginal pelvic ultrasound COMPARISON: July 17, 2023 FINDINGS: The uterus measures 7.2 x 4.9 x 3.4 cm and appears retroverted. There is no uterine fibroid or mass. The endometrium measures 0.28 cm. There is an echogenic focus in the endometrium measuring 0.2 x 0.2 cm, unchanged. The right ovary measures 2.8 x 1.5 x 1.4 cm and the left 2.3 x 1.9 x 1.3 cm. There is no adnexal mass or free fluid. US/Pelvic w/ Transvaginal IMPRESSION: The endometrium measures 0.28 cm. There is an echogenic focus in the endometriu m measuring 0.2 x 0.2 cm, unchanged. Reading Location: [place]
== END | disposition home or self-care (01) ==
LOC: US 12:47
PROVIDERS: PCP Internal Medicine; Referring Provider Obstetrics & Gynecology; Visit Provider Obstetrics & Gynecology
DX: Z15.01 Genetic susceptibility to malignant neoplasm of breast (principal); Z15.09 Genetic susceptibility to other malignant neoplasm
CPT/HCPCS: 76830; 76856

== ENCOUNTER 2024-10-16 05:56 | Day surgery (SDC) | payer MEDICAID, SELFPAY ==
--- NOTE | 2024-10-09 16:47 | PAT.ANESEVAL ---
Pre-Assessment Diagnosis/Proposed Procedure Planned Operative Procedure(s): BILAT REMOVAL PORTS FROM TISSUE EXPANDERS Anesthesia History Anesthesia History - microfiche duplicator: Anesthesia History - microfiche duplicator Hx Hospitalization No 10/09/24 13:05 Any Problems With Anesthesia Yes: NAUSEA 10/09/24 13:05 Cholinesterase deficiency No 10/09/24 13:05 You/Your Family Experience No 10/09/24 13:05 fever (hyperthermia) with Relationship Recent Exposure to Contagious No 08/07/24 10:13 Disease Does patient have nerve No 10/09/24 13:05 stimulator Patient instructed to have device shut off --Does patient have Pacemaker or ICD? When Was Last Pacemaker Check QUESTION #4 FULL TEXT: You/Your Family Experience fever (hyperthermia) with Anesthesia Last Oral Intake Last Oral intake: Last Oral Intake NPO since Meds taken in AM with sips of water? Meds patient instructed to take am of surgery PONV PONV - microfiche duplicator: PONV - microfiche duplicator Female Yes 10/09/24 13:05 HX of Motion Sickness Yes 10/09/24 13:05 HX of N/V After Surgery Yes 10/09/24 13:05 Non-Smoker Yes 10/09/24 13:05 Duration of Surgery greater Yes 10/09/24 13:05 than 60 minutes Number of Risk Factors 5 10/09/24 13:05 PONV Score Severe Risk 10/09/24 13:05 Height & Weight Height & Weight: Anesthesia: Height & Weight Height 5 ft 4 in 09/24/24 10:18 Respiratory Assessment Respiratory Assessment - microfiche duplicator: Respiratory Tract Infection Hx - microfiche duplicator Hx Respiratory Tract Infection No 10/09/24 13:05 STOP Sleep Apnea STOP Sleep Apnea - microfiche duplicator: STOP Sleep Apnea - microfiche duplicator Hx Hypertension Yes: CONTROLLED WITH MED 10/09/24 13:05 Hx Sleep Apnea No 10/09/24 13:05 CPAP BIPAP Do you snore loudly (louder No 10/09/24 13:05 than talking or can be heard Do you often feel tired/ No 10/09/24 13:05 fatigued/ sleepy during daytime? Has anyone observed you stop No 10/09/24 13:05 breathing during sleep? STOP Results Negative 10/09/24 13:05 QUESTION #5 FULL TEXT : Do you snore loudly (louder than talking or can be heard through closed doors)? Tobacco Use History Tobacco Use History - microfiche duplicator: Tobacco Use History - microfiche duplicator Tobacco Use Smoking Status Former smoker 10/09/24 13:05 Hx Tobacco Use No 10/09/24 13:05 Years Smoking Packs Smoked per Day Smoking Cessation Date was Yes - quit smoking within 15 10/09/24 13:05 within the last 15 years years Hx Smoking Cessation Date 03/29/19 10/09/24 13:05 Hx Smoking Cessation No 10/09/24 13:05 Counseling Hematologic Medial History Hematologic Hx - microfiche duplicator: Hematologic Medical Hx - crew member Hx of Blood Transfusion No 10/09/24 13:05 Hx of Transfusion in last 3 No 10/09/24 13:05 Months Date of Last Transfusion (if within last 3 months) Ever experience any problems No 10/09/24 13:05 with transfusion(s)? Specify any problems Hx of Preganancy in last 3 No 10/09/24 13:05 Months Nurse Filling Out Transfusion DSCHRIBER 10/09/24 13:05 & Questions: Date: 10/09/24 10/09/24 13:05 Time: 13:07 10/09/24 13:05 Patient unable to answer at this time (ie. confused, unrespo /Reproduction History /Reproductive History - microfiche duplicator: /Reproductive Hx- microfiche duplicator Hx Now No 10/09/24 13:05 Gestational Age (in weeks): EDC: Hx Hx Para Hx Section SAB No 09/17/24 10:08 PFSH Medical History (Updated 10/09/24 @ 13:11 by Liz Andujar) Delayed wound healing Obesity (BMI 30-39.9) Incisional breast wound Skin flap necrosis Wears dentures Anxiety High cholesterol Back pain Migraine headache Shortness of breath on exertion Former smoker History of Holter monitoring History of echocardiogram History of stress test Cardiology follow-up encounter Preoperative evaluation to rule out surgical contraindication BRCA2 gene mutation positive Bicuspid aortic valve Hypokalemia Essential hypertension Family history of early CAD Chronic back pain Home Medications ?Medication ?Instructions ?Recorded ?Last Taken ?Type cholecalciferol (vitamin D3) 125 125 mcg PO DAILY 08/30/23 09/16/24 History mcg (5,000 unit) capsule fenofibrate nanocrystallized 145 145 mg PO DAILY #90 tabs 03/11/24 09/16/24 Rx mg tablet dupilumab 200 mg/1.14 mL 200 mg subcut Q2W 04/03/24 09/12/24 History subcutaneous pen injector (Dupixent) fexofenadine 60 mg tablet (Ana 60 mg PO QHS 04/08/24 09/16/24 History Allergy) coenzyme Q10 75 mg capsule (Ultra 75 mg PO QDAY 05/30/24 09/16/24 History CoQ10) potassium chloride 20 mEq 20 meq PO DAILY 06/14/24 09/16/24 History tablet,extended release hydrochlorothiazide 25 mg tablet 25 mg PO DAILY #90 tabs 08/05/24 09/16/24 Rx propranolol 60 mg capsule,24 60 mg PO QHS #90 caps 08/05/24 09/16/24 Rx hr,extended release rosuvastatin 10 mg tablet 10 mg PO QHS #90 tabs 08/05/24 09/16/24 Rx norgestimate 0.25 mg-ethinyl 1 tab PO QDAY #112 TABLETS 10/02/24 Unknown Rx estradiol 35 mcg tablet (Judith) silver sulfadiazine 1 % topical 1 applic topical DAILY PRN wound 10/09/24 Unknown History cream (Silvadene) healing Allergy/AdvReac Type Severity Reaction Status Date / Time amoxicillin (From Augmentin) Allergy Mild Vaginal Verified 10/09/24 13:03 Itching clavulanic acid (From Allergy Mild Vaginal Verified 10/09/24 13:03 Augmentin) Itching Family History Mother Heart disease Hypertension Myocardial infarction, Onset Age: 30 Breast cancer STAGE 4 Grandfather Heart disease Grandmother Diabetes CVA (cerebral vascular accident) Father Hypertension Surgical History (Updated 10/09/24 @ 13:11 by Liz Andujar) Hx of bilateral mastectomy History of Social History household members: children housing: house number of children: 3 current occupational status: employed 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 Normal sinus rhythm. Stress test pertinent findings: 02/11/2022. Patient achieved METS of 12. Ejection fraction 55% at rest connor to 70% during exercise. Negative stress echocardiogram. Echo (EF%) pertinent findings: 02/11/2022. EF 65%. RVSP is 28 mmHg. Bicuspid aortic valve with mild focal thickening and calcification. Consult pertinent findings: 04/22/2024. Eldon ALEXANDRE. 1. Bicuspid aortic wyucz-twtsk-smyy recent echo showed stable bicuspid valve. 2. Palpitations?chronic-Holter performed (see below) patient to continue metoprolol 60 mg daily. 3. Wwzrqrtqlbqx-vtxkceh-vbghet elevated in the office today. She will monitor at home and report back Additional pertinent findings: Holter done 11/30/2021. Sinus rhythm. Some PACs and PVCs. No runs reported. Recommendation Anesthesia Recommendation Anesthesia recommendation: OPTIMIZED for anesthesia
[2024-10-16] VITALS (11 sets, daily range): BP systolic 105–133; BP diastolic 71–96; PULSE 85–102; RESP 16–20; TEMP 36.3–37.2; O2SAT 95–98; BMI 35.2
[2024-10-16] MEDS: Lactated Ringers 1,000 ML 15 ML IV ×2 (06:43→09:21)
[2024-10-16 06:47] LABS: Internal QC Validated? YES +Cl - CLEAR BKGD; Pregnancy, Urine Negative Negative
--- NOTE | 2024-10-16 06:48 | PCM.PRE.AN2 ---
ASA Classification* ASA Classification ASA Classification: 2 Assessment & Plan Anesthesia* Anesthesia Assessment Anesthesia Assessment: Discussed sedation and/or anesthesia options, risks, benefits, and alternatives with patient/parents/legal guardian/POA. Questions invited. The patient/parents/legal guardian/POA seems to understand and agrees to proceed with anesthesia plan. Reviewed the physical assessment, medical history, allergy history and patient home medications list prior to surgery/procedure/anesthetic and documented any changes. Performed airway and anesthesia risk assessments. Anesthesia Type Anesthesia Type: General Anesthesia Focused Assessment* Temperature: 97.5 F Pulse Rate: 89 Blood Pressure: 128/90 Respiratory Rate: 16 Pulse Ox: 98 Airway Assessment Mouth opens: >3 cm Mallampati Score: II Focused Labs Anesthesia Preop lab: CBC WBC 8.5 K/mm3 (4.4-11.0) 09/17/24 10:36 09/17/24 RBC 4.67 M/mm3 (4.2-5.4) 09/17/24 10:36 09/17/24 Hgb 14.3 g/dL (12.0-15.0) 09/17/24 10:36 09/17/24 Hct 42.4 % (37-47) 09/17/24 10:36 09/17/24 Plt Count 324 K/mm3 (150-450) 09/17/24 10:36 09/17/24 CHEMISTRY Potassium 3.8 mmol/L (3.3-5.1) 09/17/24 10:36 09/17/24 Sodium 136 mmol/L (133-145) 09/17/24 10:36 09/17/24 Magnesium 1.9 mg/dL (1.6-2.6) 02/11/22 13:50 02/11/22 BUN 12 mg/dL (4-19) 09/17/24 10:36 09/17/24 Creatinine 0.50 mg/dL (0.70-1.20) L 09/17/24 10:36 09/17/24 Glucose 106 mg/dL (70-99) H 09/17/24 10:36 09/17/24 POC Glucose 83 mg/dL (70-110) 06/17/14 05:43 06/17/14 TSH 0.52 uIU/mL (0.358-3.74) 05/01/23 12:01 05/01/23 COAG Urine Test Negative Negative 10/16/24 06:15 10/16/24 Pre-Assessment Diagnosis/Proposed Procedure Planned Operative Procedure(s): BILAT REMOVAL PORTS FROM TISSUE EXPANDERS Anesthesia History Anesthesia History - human resources office assistant: Anesthesia History - human resources office assistant Hx Hospitalization No 10/09/24 13:05 Any Problems With Anesthesia Yes: NAUSEA 10/09/24 13:05 Cholinesterase deficiency No 10/09/24 13:05 You/Your Family Experience No 10/09/24 13:05 fever (hyperthermia) with Relationship Recent Exposure to Contagious No 10/16/24 06:39 Disease Does patient have nerve No 10/09/24 13:05 stimulator Patient instructed to have device shut off --Does patient have Pacemaker No 10/16/24 06:40 or ICD? When Was Last Pacemaker Check QUESTION #4 FULL TEXT: You/Your Family Experience fever (hyperthermia) with Anesthesia Last Oral Intake Last Oral intake: Last Oral Intake NPO since 00:00 10/16/24 06:40 Meds taken in AM with sips of No 10/16/24 06:40 water? Meds patient instructed to take am of surgery PONV PONV - human resources office assistant: PONV - human resources office assistant Female Yes 10/09/24 13:05 HX of Motion Sickness Yes 10/09/24 13:05 HX of N/V After Surgery Yes 10/09/24 13:05 Non-Smoker Yes 10/09/24 13:05 Duration of Surgery greater Yes 10/09/24 13:05 than 60 minutes Number of Risk Factors 5 10/09/24 13:05 PONV Score Severe Risk 10/09/24 13:05 Height & Weight Height & Weight: Anesthesia: Height & Weight Height 5 ft 4 in 10/16/24 06:40 Weight: 93 kg 10/16/24 06:40 Body Mass Index (BMI) 35.2 10/16/24 06:40 Respiratory Assessment Respiratory Assessment - human resources office assistant: Respiratory Tract Infection Hx - human resources office assistant Hx Respiratory Tract Infection No 10/09/24 13:05 STOP Sleep Apnea STOP Sleep Apnea - human resources office assistant: STOP Sleep Apnea - human resources office assistant Hx Hypertension Yes: CONTROLLED WITH MED 10/09/24 13:05 Hx Sleep Apnea No 10/09/24 13:05 CPAP BIPAP Do you snore loudly (louder No 10/09/24 13:05 than talking or can be heard Do you often feel tired/ No 10/09/24 13:05 fatigued/ sleepy during daytime? Has anyone observed you stop No 10/09/24 13:05 breathing during sleep? STOP Results Negative 10/09/24 13:05 QUESTION #5 FULL TEXT : Do you snore loudly (louder than talking or can be heard through closed doors)? 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 Specify any problems Hx of Preganancy in last 3 No 10/09/24 13:05 Months Nurse Filling Out Transfusion DSCHRIBER 10/09/24 13:05 & Questions: Date: 10/09/24 10/09/24 13:05 Time: 13:07 10/09/24 13:05 Patient unable to answer at this time (ie. confused, unrespo /Reproduction History /Reproductive History - human resources office assistant: /Reproductive Hx- human resources office assistant Hx Now No 10/09/24 13:05 Gestational Age (in weeks): EDC: Hx Hx Para Hx Section SAB No 09/17/24 10:08 Active Medications Active Medications: Current Medications Generic Name Dose Route Start Last Admin Trade Name Freq PRN Reason Stop Dose Admin Lactated Ringer's 1,000 mls @ 15 mls/hr 10/16/24 06:15 10/16/24 06:43 IV 15 mls/hr .Q48H GRZEGORZ Administration Clindamycin Phosphate 900 mg in 50 mls @ 75 mls/hr 10/16/24 07:00 Cleocin IV 10/16/24 07:39 INTRAOP ONE PFSH Medical History Delayed wound healing Obesity (BMI 30-39.9) Incisional breast wound Skin flap necrosis Wears dentures Anxiety High cholesterol Back pain Migraine headache Shortness of breath on exertion Former smoker History of Holter monitoring History of echocardiogram History of stress test Cardiology follow-up encounter Preoperative evaluation to rule out surgical contraindication BRCA2 gene mutation positive Bicuspid aortic valve Hypokalemia Essential hypertension Family history of early CAD Chronic back pain Home Medications ?Medication ?Instructions ?Recorded ?Last Taken ?Type cholecalciferol (vitamin D3) 125 125 mcg PO DAILY 08/30/23 10/15/24 History mcg (5,000 unit) capsule fenofibrate nanocrystallized 145 145 mg PO DAILY #90 tabs 03/11/24 10/15/24 Rx mg tablet dupilumab 200 mg/1.14 mL 200 mg subcut Q2W 04/03/24 10/10/24 History subcutaneous pen injector ([id number]) fexofenadine 60 mg tablet (Ana 60 mg PO QHS 04/08/24 10/15/24 History Allergy) coenzyme Q10 75 mg capsule (Ultra 75 mg PO QDAY 05/30/24 10/15/24 History CoQ10) potassium chloride 20 mEq 20 meq PO DAILY 06/14/24 10/15/24 History tablet,extended release hydrochlorothiazide 25 mg tablet 25 mg PO DAILY #90 tabs 08/05/24 09/16/24 Rx propranolol 60 mg capsule,24 60 mg PO QHS #90 caps 08/05/24 10/15/24 Rx hr,extended release rosuvastatin 10 mg tablet 10 mg PO QHS #90 tabs 08/05/24 10/15/24 Rx norgestimate 0.25 mg-ethinyl 1 tab PO QDAY #112 TABLETS 10/02/24 10/15/24 Rx estradiol 0.035 mg tablet (Judith) silver sulfadiazine 1 % topical 1 applic topical DAILY PRN wound 10/09/24 Unknown History cream (Silvadene) healing Allergy/AdvReac Type Severity Reaction Status Date / Time amoxicillin (From Augmentin) Allergy Mild Vaginal Verified 10/11/24 09:24 Itching clavulanic acid (From Allergy Mild Vaginal Verified 10/11/24 09:24 Augmentin) Itching Family History Mother Heart disease Hypertension Myocardial infarction, Onset Age: 30 Breast cancer STAGE 4 Grandfather Heart disease Grandmother Diabetes CVA (cerebral vascular accident) Father Hypertension Surgical History Hx of bilateral mastectomy History of Social History household members: children housing: house number of children: 3 current occupational status: employed 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
--- NOTE | 2024-10-16 07:17 | HP.PCM_ITS ---
History and Physical Date of Admission: 10/16/24 The patient is examined and there are no changes to the H&P dated 10/11/2024. She presents for removal of tissue electromechanical technologist ports bilaterally. An informed consent is obtained for bilateral tissue electromechanical technologist port removal. She is marked in the preop holding area prior to surgery. Assessment & Plan Assessment/Plan (1) Status post bilateral breast reconstruction: PLAN: Plan For bilateral tissue electromechanical technologist port removal.
--- NOTE | 2024-10-16 07:17 | PCM.HP.BLA ---
History and Physical Date of Admission: 10/16/24 The patient is examined and there are no changes to the H&P dated 10/11/2024. She presents for removal of tissue highway safety engineer ports bilaterally. An informed consent is obtained for bilateral tissue highway safety engineer port removal. She is marked in the preop holding area prior to surgery. Assessment & Plan Assessment/Plan (1) Status post bilateral breast reconstruction: PLAN: Plan For bilateral tissue highway safety engineer port removal.
[2024-10-16] MEDS: Clindamycin 900 MG/50 ML BAG 75 MG IV (07:43)
[2024-10-16] MEDS: Bupivacaine 0.25% 30 ML Vial (08:50)
--- NOTE | 2024-10-16 09:09 | EX.PCM.DISCH ---
Discharge Instructions Dressing / Incision Additional Dressing/Incision Instructions:: Keep your back elevated (recliner position) at night until seen in the office. Take the oral antibiotic (Keflex) 2 times a day until finished. Keep the dressing in place and dry until seen in the office. Avoid stretching or reaching to prevent opening the incisions. Follow Up Care Please Follow Up With: Itzel Haines MD When: In 1 week Test Results: Test results from this visit will be discussed in further detail at your follow-up appointment, if applicable. Discharge Plan Admission Attending Provider: Itzel Haines Primary Care Provider: Joseph Bustamante Instructions Print Language: Mongolian Discharge Orders/Prescriptions Prescriptions: New cephalexin 500 mg capsule 500 mg PO BID 7 Days Qty: 14 0RF No Action cholecalciferol (vitamin D3) 125 mcg (5,000 unit) capsule 125 mcg PO DAILY fexofenadine [Ana Allergy] 60 mg tablet 60 mg PO QHS Dupixent Pen 200 mg/1.14 mL pen injector 200 mg subcut Q2W propranolol 60 mg capsule,extended release 24 hr 60 mg PO QHS Qty: 90 1RF hydrochlorothiazide 25 mg tablet 25 mg PO DAILY Qty: 90 1RF rosuvastatin 10 mg tablet 10 mg PO QHS Qty: 90 1RF Ultra CoQ10 75 mg capsule 75 mg PO QDAY silver sulfadiazine [Silvadene] 1 % cream 1 applic topical DAILY PRN (Reason: wound healing) Rx Instructions: apply a thin layer to the affected site 1 time a day potassium chloride 20 mEq tablet extended release 20 meq PO DAILY Rx Instructions: TAKE 1 TABLET BY MOUTH DAILY fenofibrate nanocrystallized 145 mg tablet 145 mg PO DAILY Qty: 90 3RF norgestimate-ethinyl estradiol [Judith] 0.25-35 mg-mcg tablet 1 tab PO QDAY Qty: 112 5RF Referrals / Follow Up: Joseph Bustamante MD [Primary Care Provider] - Disposition Disposition (needs filled in before D/C Order can be placed): Home, Self Care
--- NOTE | 2024-10-16 09:12 | OP.PCM_ITS ---
Problems Associated Problem List Diagnoses (1) Status post bilateral breast reconstruction: (2) Acquired absence of bilateral breasts and nipples: Operative Report (Standard) Operative Information Date of Procedure: 10/16/24 Pre-Operative Diagnosis: Status post bilateral mastectomy followed by reconstruction with tissue expanders Post-Operative Diagnosis: Same Surgery/Procedure Performed: Removal of power plant electrician ports bilaterally golf cart attendant: Yes Raw Silk Grader: Kelsy Duque Tasks completed by human resources office assistant: Retracting Type of Anesthesia: General RN Documented Start/Stop Times: Operation Date: 10/16/24 07:30 Case Time Into Pre-Op 10/16/24 06:08 Out of Pre-Op 10/16/24 07:27 Anesthesia Start 10/16/24 07:30 Into Room 10/16/24 07:30 Procedure Start 10/16/24 07:47 Procedure End 10/16/24 09:02 Anesthesia End 10/16/24 09:04 Out of Room 10/16/24 09:04 Procedure Start Time: 07:47 Procedure Stop Time: 09:02 Select all DRAINS/GRAFTS/IMPLANTS that apply: None Estimated Blood Loss: Minimal Specimen collected: No Description of surgery: The patient presents today status post bilateral breast reconstruction with tissue expanders. The patient's tissue expanders have been filled to the recommended capacity and the patient wishes to have the ports removed and maintain the implants in place as permanent implants. She presents for removal of the bilateral ports. An informed consent is obtained. She is marked in the preop holding area. Patient is brought to the operating room and placed under general anesthesia in the supine position. Care is taken to pad all pressure points, apply a warming blanket, and sequential compression stockings. The breast and chest are prepped and draped in the usual sterile fashion. We initially began with incising the skin in the inframammary crease overlying the port area. Careful dissection is carried down to the subcutaneous tissue with cautery until the port is encountered. The port is then delivered out through the incision and with a sharp snap, the port and tube are removed. Inspection of the tube reveals the a ppropriate level of detachment. Pressure is placed on the implant and the field examined to ensure no leak of implant contents. No disruption of the implant is noted. The wound is then carefully inspected again for hemostasis which is controlled with cautery. The incision is closed in multiple layers using a STRATAFIX suture. Skin edges are approximated in a subcuticular fashion. Because of the patient's previous history of delayed wound healing, the incisions reinforced with 3 interrupted Prolene suture. 1/4% plain Marcaine is injected along the incision for postop pain relief. The identical procedure was performed on the opposite side. The sites are then dressed with Xeroform and gauze and she is placed in a surgery bra. She tolerated the procedure well was taken to the recovery area in an awakening in stable condition. Needle and sponge counts are correct. Surgical Findings: As above Complications Complications: No Admit VTE Documentation VTE Mechan Device Prophylaxis: SCD's
--- NOTE | 2024-10-16 09:13 | PCM.POST.ANE ---
Anesthesia: Postop Eval I Current Vital Signs Temperature: 97.7 F Pulse Rate: 101 Blood Pressure: 128/96 Respiratory Rate: 20 Pulse Ox: 97 Oxygen Delivery Method: Room Air Assessment Airway patent: Yes Spontaneous unlabored respirations: Yes Mental status: Awake nausea: No Vomiting: No Anesthesia Complication: No Fluid Hydration Crystalloid volume administer (ml): 900 Total IV fluid infused: 900 Progress Note Anesthesia document: Postop Eval 1 completed: Yes
--- NOTE | 2024-10-16 09:30 | POSTOPAN2_ITS ---
Anesthesia Postop Eval I Sum Postop Eval Completion status Anesthesia document: Postop Eval 1 completed: Yes Anesthesia Postop Eval I Summary Anesthesia Postop Eval I Summary: Anesthesia Postop Eval I: Assessment Summary Airway patent Yes 10/16/24 09:14 SUPERVISOR TREE [email or web address] Spontaneous unlabored Yes 10/16/24 09:14 SUPERVISOR TREE [email or web address] respirations Mental status Awake 10/16/24 09:14 SUPERVISOR TREE [email or web address] nausea No 10/16/24 09:14 SUPERVISOR TREE [email or web address] Vomiting No 10/16/24 09:14 SUPERVISOR TREE [email or web address] Anesthesia Postop Eval I: Fluid Summary Crystalloid volume administer 900 10/16/24 09:14 SUPERVISOR TREE [email or web address] (ml) Colloids volume administered ( ml) Blood Product volume administered (ml) Total IV fluid infused 900 10/16/24 09:14 SUPERVISOR TREE [email or web address] Anesthesia Postop Eval I: Summary Notes Anesthesia Complication No 10/16/24 09:14 SUPERVISOR TREE [email or web address] Anesthesia Complication Comment: Post-operative progress note Anesthesia: Postop Eval II Evaluation Mental status: Awake Pain Level: 3 nausea: No Vomiting: No
--- NOTE | 2024-10-16 09:30 | PCM.POSTANE2 ---
Anesthesia Postop Eval I Sum Postop Eval Completion status Anesthesia document: Postop Eval 1 completed: Yes Anesthesia Postop Eval I Summary Anesthesia Postop Eval I Summary: Anesthesia Postop Eval I: Assessment Summary Airway patent Yes 10/16/24 09:14 SOUND ENGINEERING [email or web address] Spontaneous unlabored Yes 10/16/24 09:14 SOUND ENGINEERING [email or web address] respirations Mental status Awake 10/16/24 09:14 SOUND ENGINEERING [email or web address] nausea No 10/16/24 09:14 SOUND ENGINEERING [email or web address] Vomiting No 10/16/24 09:14 SOUND ENGINEERING [email or web address] Anesthesia Postop Eval I: Fluid Summary Crystalloid volume administer 900 10/16/24 09:14 SOUND [email or web address] (ml) Colloids volume administered ( ml) Blood Product volume administered (ml) Total IV fluid infused 900 10/16/24 09:14 SOUND ENGINEERING [email or web address] Anesthesia Postop Eval I: Summary Notes Anesthesia Complication No 10/16/24 09:14 SOUND ENGINEERING [email or web address] Anesthesia Complication Comment: Post-operative progress note Anesthesia: Postop Eval II Evaluation Mental status: Awake Pain Level: 3 nausea: No Vomiting: No
== END 2024-10-16 11:46 | disposition home or self-care (01) ==
LOC: SDC 05:56 → AC 05:57
PROVIDERS: Anesthesiology; PCP Internal Medicine; Referring Provider Plastic Surgery; Visit Provider Plastic Surgery
PROC: (CPT 19357; principal; 2024-10-16 07:15)
DX: Z90.13 Acquired absence of bilateral breasts and nipples (principal); I10 Essential (primary) hypertension; E78.00 Pure hypercholesterolemia, unspecified; F41.9 Anxiety disorder, unspecified; Z79.899 Other long term (current) drug therapy; Z87.891 Personal history of nicotine dependence
CPT/HCPCS: 11971; 00400; 81025; J2405

== ENCOUNTER → 2025-02-07 | Outpatient (CLI) | payer MEDICAID, SELFPAY ==
[2025-02-07 12:25] LABS: Hematocrit 43.2 % (37-47); Hemoglobin 14.7 g/dL (12.0-15.0); Immature Granulocytes Count 0.020 X10^3/uL (0.0-0.0); Mean Corp Hgb Conc 34.0 g/dL (32-36); Mean Corpuscular Volume 90.2 fL (81-99); Mean Platelet Vol. 10.7 fl (6.2-12.0); NRBC Flagged by Analyzer 0 % (0-5); Platelet Count 329 K/mm3 (150-450); RBC Distribution Width CV 11.3 % (11.6-14.6); RBC Distribution Width SD 37.4 fl (35.1-43.9); Red Blood Count 4.79 M/mm3 (4.2-5.4); White Blood Count 7.6 K/mm3 (4.4-11.0)
[2025-02-07 13:05] LABS: AST(SGOT) 32 U/L (<=31); Alanine Aminotransfer ALT/SGPT 20 U/L (<=34); Albumin, Serum 4.0 g/dL (3.5-5.0); Alkaline Phosphatase 59 U/L (35-104); Anion Gap 12 (5-15); BUN 11 mg/dL (4-19); BUN/Creat Ratio 19.8 RATIO (10-20); Calcium,Total 9.6 mg/dL (7.6-11.0); Carbon Dioxide 21.1 mmol/L (21.0-32.0); Chloride 103 mmol/L (98-108); Cholesterol 124 mg/dL (<=200); Globulin 3.3 g/dL (2.2-4.2); Glucose 135 mg/dL (70-99); Low Density Lipoprotein Calc. 34 mg/dL; Potassium 3.4 mmol/L (3.3-5.1); Triglycerides 286 mg/dL; Very Low Density Lipoprotein 57 mg/dL (5-40); cholesterol:hdl ratio screen 3.78
== END | disposition home or self-care (01) ==
LOC: LAB 11:17
PROVIDERS: PCP Internal Medicine; Referring Provider Internal Medicine; Visit Provider Internal Medicine
DX: I10 Essential (primary) hypertension (principal); E78.1 Pure hyperglyceridemia
CPT/HCPCS: 36415; 80053; 80061; 83036; 85025

== ENCOUNTER → 2025-04-18 | Outpatient (CLI) | payer MEDICAID, SELFPAY ==
--- NOTE | 2025-04-18 09:11 | ECHOD_ITS ---
Reason For Study Reason For Study: BICUSPID AV Procedure This was a 2D Doppler, Color Flow transthoracic echocardiogram. Exam performed in department. Left Ventricle Normal LV size. Left ventricular systolic function is normal. The left ventricular ejection fraction is 60 %. No regional wall motion abnormalities noted. Right Ventricle Normal RV size. Normal systolic function. Atria Normal left atrium. Normal right atrium. Mitral Valve Normal mitral valve. Tricuspid Valve Normal tricuspid valve. Aortic Valve Bicuspid aortic valve. Pulmonic Valve Normal pulmonic valve. Great Vessels Mild to moderately dilated aortic root. The ascending aorta is mildly dilated. The pulmonary artery is normal size. Inferior vena cava collapse with respiration. Pericardium/Pleural No pericardial effusion. MMode/2D Measurements & Calculations LVIDd: 4.2 cm IVSd: 0.87 cm LVOT diam: 2.0 cm LVIDs: 3.4 cm LVPWd: 1.1 cm LVOT area: 3.0 cm2 FS: 20.3 % Ao root diam: 4.4 cm LAV(MOD-sp4): 26.5 ml LVAd ap4: 23.9 cm2 LVLd ap4: 7.2 cm EDV(MOD-sp4): 66.3 ml EDV(sp4-el): 66.7 ml LVAs ap4: 13.3 cm2 LVLs ap4: 6.0 cm ESV(MOD-sp4): 25.2 ml ESV(sp4-el): 24.8 ml EF(MOD-sp4): 62.0 % EF(sp4-el): 62.8 % SV(MOD-sp4): 41.1 ml SV(sp4-el): 41.9 ml LA A4 area: 12.3 cm2 SI(MOD-sp4): 22.0 ml/m2 LA dimension(2D): 3.1 cm RA A4 area: 9.9 cm2 Time Measurements MV dec time: 0.21 sec Doppler Measurements & Calculations MV E max marko: 44.9 cm/sec Lat Peak E' Marko: 11.4 cm/sec Med Peak E' Marko: 8.9 cm/sec MV A max marko: 48.6 cm/sec E/E' lat: 4.0 E/E' med: 5.0 MV E/A: 0.92 MV V2 max: 61.0 cm/sec Ao V2 max: 136.8 cm/sec MV max P.5 mmHg MV dec slope: 223.5 cm/sec2 Ao max P.5 mmHg MV V2 mean: 42.9 cm/sec Ao V2 mean: 96.2 cm/sec MV mean P.78 mmHg Ao mean P.2 mmHg MV V2 VTI: 16.8 cm Ao V2 VTI: 28.0 cm AV (velocity ratio): 0.78 MVA(VTI): 3.9 cm2 ACE(I,D): 2.4 cm2 ACE(V,D): 2.4 cm2 LV V1 max: 109.5 cm/sec SV(LVOT): 66.2 ml PA V2 max: 69.9 cm/sec LV V1 max P.8 mmHg PA V2 mean: 55.1 cm/sec LV V1 mean P.8 mmHg LV V1 mean: 78.2 cm/sec LV V1 VTI: 22.0 cm ECHO/Echo Complete Interpretation Summary Normal LV size. Left ventricular systolic function is normal. Mild to moderately dilated aortic root. Bicuspid aortic valve. The left ventricular ejection fraction is 60 %. Ordering Physician: Lori Colón Referring Physician: Lori Colón Performed By: Minda Sinha RCS
== END | disposition home or self-care (01) ==
LOC: CVS 09:11
PROVIDERS: PCP Internal Medicine; Referring Provider Nurse Practitioner Gerontology; Visit Provider Nurse Practitioner Gerontology
DX: Q23.1 Congenital insufficiency of aortic valve (principal)
CPT/HCPCS: 93306